=== PATIENT | male | born 1945 | race Caucasian/White ===

== ENCOUNTER 2017-01-29 16:49 | Inpatient (IN) ==
[2017-01-29] MEDS ORDERED: Naloxone 0.4 MG/ML INJ IVP PRN (21:12)
[2017-01-29] MEDS ORDERED: Acetaminophen 325 MG TABLET PO PRN (21:12)
[2017-01-29] MEDS ORDERED: Ondansetron 4 MG/2 ML VIAL IVP PRN (21:12)
[2017-01-29] MEDS ORDERED: D5% in Water 1,000 ML IVC PRN (21:19)
[2017-01-29] MEDS ORDERED: Dextrose Gel 15 GM PO PRN ×2 (21:19)
--- NOTE | 2017-01-29 21:45 | Internal Med History&Physical ---
Date of Encounter: 01/29/17 Time of Encounter: 20:00 Assessment and Plan (1) Acute respiratory failure with hypoxemia Current visit: Yes Status: Acute 1. After initial assessment and then repeat assessment, I placed patient on Bipap and will place on mechanical ventilation if necessary. 2. Emergent dialysis requested from Dr. Ortiz. I called him and he is ordering acute dialysis. 3. Will try diuresis with Lasix in the meantime. 4. Close monitoring. (2) CHF (congestive heart failure) Current visit: Yes Status: Acute 1. Urgent dialysis requested per Nephrology. 2. IV Lasix, IV Morphine, and nitropaste ordered. 3. If necessary, will intubate if patient does not tolerate/improve with BiPap. Qualifiers: Congestive heart failure type: unspecified congestive heart failure type Congestive heart failure chronicity: acute Qualified Code(s): I50.9 - Heart failure, unspecified (3) ESRD (end stage renal disease) Current visit: Yes Status: Chronic 1. Dr. Ortiz consulted for urgent dialysis and ongoing renal needs. (4) NSTEMI (non-ST elevated myocardial infarction) Current visit: Yes Status: Acute 1. Patient denies chest pain. 2. EKG suggest subtle lateral wall ischemia. 3. Heparin gtt started per ACS protocol. 4. Consult cardiology. 5. ASA, BB, STATIN. (5) IDDM (insulin dependent diabetes mellitus) Current visit: Yes Status: Chronic 1. Continue Home Lantus and add SSI. 2. Monitor glucose and adjust as necessary. (6) DVT prophylaxis Current visit: Yes Status: Acute 1. Heparin gtt initiated per ACS protocol. Internal Medicine - H&P: HPI Chief complaint: SOB Admitted From: Hospital to Hospital Transfer Plans for Post Hospital Care: Home History of present illness: Mr. Gallo is a 71 year old male who presents in transfer from [facility] ER for concerns of congestive heart failure. He developed some shortness of breath, which has progressively worsened throughout the last 1-2 days. He is about 5 pounds above his dry weight he states. He denies any chest pain. He has had some clear sputum production with worsening cough. He denies any fevers or chills. He denies any vomiting or diarrhea. At [place] , he received some Nitropaste and Lasix with noted improvement. He feels better now and is not in respiratory distress, but he is still a little short of breath. He has not missed dialysis he states. He stays pretty compliant with his diet and fluid balance. His diabetes has been a little difficult to control lately. He otherwise has felt well until the last 2 days when he started getting more short of breath. At 21:46, I was called STAT to his bedside for acute respiratory distress, frothing, and worsening pulmonary edema. I assessed him, requested he be placed on BiPap, and contacted Dr. Ortiz for urgent dialysis. If necessary , we will intubate and place on mechanical ventilation. However, I'm hopeful urgent dialysis will alleviate and improve his situation. Past Med Surg Social Fam HX - Past Medical History Attestation: Yes The following information was validated with the patient. Source: patient, old records reviewed, obtained from family Medical history: coronary artery disease, diabetes, dialysis, hypertension, myocardial infarction Psychiatric history: no psych history - Past Surgical History Surgical History: other (LHC, AV fistula) - Social History Smoking Status: Current every day smoker Smokeless Tobacco Status: No Alcohol use: none Drug use: none Current living situation: Home, With Family Activity Level: Independent ambulation - Family History Mother Living Status: Hx Family Cardiac Disorders: Yes Hx Family Respiratory Disorders: No Father Living Status: Hx Family Cardiac Disorders: No Hx Family Respiratory Disorders: No Internal Medicine - H&P: Meds Aspirin [Lo-Dose Aspirin EC] 81 mg PO DAILY 01/29/17 [History] Cinacalcet HCl [Sensipar] 60 mg PO DAILY 01/29/17 [History] Fenofibrate Nanocrystallized [Tricor] 145 mg PO DAILY 01/29/17 [History] Insulin Glargine,Hum.rec.anlog [Lantus Solostar] 15 unit SQ HS 01/29/17 [History ] Insulin Human Regular [HumuLIN R] 0 unit SQ TID PRN 01/29/17 [History] Renal Vitamin [Renal Caps Softgel] 1 mg PO DAILY 01/29/17 [History] Sevelamer [Renvela] 2,400 mg PO TIDWM 01/29/17 [History] Simvastatin [Zocor] 10 mg PO DAILY 01/29/17 [History] amLODIPine [Norvasc] 5 mg PO BID 01/29/17 [History] hydrALAZINE [HydrALAZINE] 25 mg PO BID 01/29/17 [History] 3 Allergy/AdvReac Type Severity Reaction Status Date / Time No Known Allergies Allergy Verified 01/29/17 15:16 - Constitutional Constitutional: weight gain, no chills, no fever(s), no night sweats - EENT Eyes: no blurry vision, no change in vision Ears: no ear pain, no tinnitus Nose, mouth and throat: no nasal congestion, no nasal discharge, no sore throat - Cardiovascular Cardiovascular ROS IM: dyspnea, dyspnea on exertion, edema, no chest pain, no diaphoresis, no palpitations - Respiratory Respiratory: cough, dyspnea, no hemoptysis, no wheezing, no pain on inspiration , no chest congestion, no excessive phlegm production, no change in phlegm color , no pain with cough - Gastrointestinal Gastrointestinal: no abdominal pain, no diarrhea, no hematemesis, no hematochezia, no nausea, no vomiting - Genitourinary Genitourinary ROS male: no dysuria, no flank pain, no hematuria - Musculoskeletal Musculoskeletal ROS IM: no arthralgias, no back pain - Integumentary Integumentary IM: no rash, no jaundice - Neurological Neurological ROS: no dizziness, no focal weakness, no frequent falls - Psychiatric Psychiatric: no anxiety, no depression - Endocrine Endocrine IM: no cold intolerance, no heat intolerance, no polydipsia, no polyuria - Hematologic/Lymphatic Hematologic/Lymphatic: no lymphadenopathy - Allergic/Immunologic Allergic/Immunologic: no GI upset with certain foods - Constitutional Vitals: Temp Pulse Resp BP Pulse Ox 97.6 F 88 18 142/77 93 01/29/17 19:20 01/29/17 19:20 01/29/17 19:20 01/29/17 19:20 01/29/17 19:20 General appearance: Present: cooperative, mild distress, A&O X 3, pleasant, answers questions appropriately Exam: on repeat exam; he was in significant respiratory distress - Head Head exam: Present: atraumatic, normal inspection - Expanded Head Exam Head exam expanded: Absent: abrasion, contusion, general tenderness - Eye Eye exam: Present: EOMI, normal appearance, PERRL. Absent: scleral icterus Pupils: Present: normal accommodation Additional comments: mild periorbital and facial swelling - ENT ENT exam: Present: mucous membranes moist, normal exam - Neck Neck exam general surgery: Present: full ROM, supple, trachea midline. Absent: lymphadenopathy, tenderness - Expanded Neck Exam Neck exam: Absent: carotid bruit - Respiratory Respiratory exam: Present: accessory muscle use, rales (about 1/[address] up his lung burgos), respiratory distress, rhonchi. Absent: chest wall tenderness, wheezes - Cardiovascular Cardiovascular exam: Present: JVD, RRR, +S1, +S2. Absent: diastolic murmur, systolic murmur - GI/Abdominal GI/Abdominal exam: Present: normal bowel sounds, soft. Absent: hepatomegaly, mass, rebound, splenomegaly, tenderness - Extremities Exam Extremities exam: Present: full ROM, warm. Absent: calf tenderness, joint swelling, pedal edema, tenderness - Back Exam Back exam: Present: normal inspection. Absent: CVA tenderness (L), CVA tenderness (R) - Neurological Exam Neurological exam: Present: alert, CN II-XII intact, oriented X3, no focal deficits - Psychiatric Psychiatric exam: Present: normal affect, normal mood - Skin Skin exam: Present: dry, warm. Absent: rash Internal Med - H&P Results - Labs Labs: I reviewed his labs from [place] and include the following: WBC 14.9 Hemoglobin 9.8 Hematocrit 28.6 Platelet count 256 PT 10.9 INR 1.0 PTT 52.1 Sodium 135 Potassium 5.4 Chloride 97 Carbon dioxide 19 BUN 68 Creatinine 8.47 Troponin 0.36, now 1.42 - EKG Data -: EKG Interpreted by Myself EKG shows normal: sinus rhythm - EKG Data Prior EKG available for review: yes When compared to previous EKG: there is no significant change Interpretation IM: suggestive of ischemia EKG comments: 01/29/17 22:35 NSR; LVH; ST-T depression in V5-V6 (similar to before) - Diagnostic Studies Chest x-ray Status: image reviewed by me (CHF)
[2017-01-29] MEDS: Furosemide 40 MG/4 ML VIAL IVP SCH (21:59)
[2017-01-29] MEDS: Nitroglycerin 1 INCH/GM PACKET TP SCH (22:01)
[2017-01-29] MEDS: amLODIPine 5 MG TABLET PO SCH (22:02)
[2017-01-29 22:04] LABS: Hemoglobin A1C 6.4 %
[2017-01-29] MEDS ORDERED: *HR* Heparin 5,000 UNIT/ML VIAL IVP PRN ×2 (22:19)
[2017-01-29] MEDS: *HR* Morphine 2 MG/ML SYRINGE IVP PRN (22:43)
[2017-01-29] MEDS: Insulin DETEMIR 100 UNIT/ML X5UNITS SQ SCH (23:13)
[2017-01-29 23:16] LABS: Hematocrit 26.4 % (37.5-50.1); Hemoglobin 8.6 g/dL (12.9-16.9); Immature Platelets 3.2 % (1.1-6.1); Mean Corpuscular HGB Conc 32.6 g/dL (31.6-35.5); Mean Corpuscular Hemoglobin 31.5 pg (28.0-33.3); Mean Corpuscular Volume 96.7 fL (83.0-100.0); Mean Platelet Volume 10.8 fL (9.4-12.4); Red Blood Count 2.73 M/mcL (4.19-5.50); Red Cell Distribution Width 15.3 % (11.5-14.5)
[2017-01-29 23:24] LABS: Activated Partial Thrombo Time 43.4 Seconds (26.0-36.0)
[2017-01-29] MEDS ORDERED: 0.9 % Sodium Chloride 250 ML IVC PRN (23:28)
[2017-01-29] MEDS ORDERED: 0.9 % Sodium Chloride 1,000 ML PRIME SCH (23:30)
[2017-01-29] MEDS: Heparin 25,000 UNIT/500 ML D5W 25,000 UNIT/500 ML MLS IVC SCH (23:44)
[2017-01-30] MEDS ORDERED: *HR* Heparin 5,000 UNIT/ML VIAL SQ SCH
[2017-01-30 00:38] LABS: Basophils # 0.1 K/mcL (0.0-0.2); Basophils % 0.5 %; Eosinophils # 0.1 K/mcL (0.0-0.6); Eosinophils % 0.5 %; Hematocrit 26.5 % (37.5-50.1); Hemoglobin 8.8 g/dL (12.9-16.9); Immature Granulocytes % 0.6 % (0-4); Lymphocytes # 0.7 K/mcL (0.6-4.6); Lymphocytes % 5.9 %; Mean Corpuscular HGB Conc 33.2 g/dL (31.6-35.5); Mean Corpuscular Hemoglobin 31.5 pg (28.0-33.3); Mean Platelet Volume 10.1 fL (9.4-12.4); Monocytes # 0.8 K/mcL (0.0-1.3); Monocytes % 6.8 %; Neutrophils # 10.5 K/mcL (1.6-8.9); Platelet Count 187 K/mcL (140-400); Red Blood Count 2.79 M/mcL (4.19-5.50); Red Cell Distribution Width 15.1 % (11.5-14.5); Segmented Neutrophils % 85.7 %
[2017-01-30 00:52] LABS: Albumin 3.1 g/dL (3.5-5.0); Albumin/Globulin Ratio 0.8 (1.1-2.2); Bilirubin,Total 0.6 mg/dL (0.2-1.2); Calcium 9.2 mg/dL (8.6-10.8); Chol/HDL Ratio 2.2 (0-4.9); Globulin 3.8 g/dL (2.4-3.5); Magnesium 2.7 mg/dL (1.6-2.6); Potassium 5.1 mEq/L (3.5-4.5); Total Protein 6.9 g/dL (6.0-8.3)
[2017-01-30 01:43] LABS: Hepatitis B Surface Antigen Nonreactive (Nonreactive)
[2017-01-30] MEDS ORDERED: 0.9 % Sodium Chloride 250 ML ONE (03:00)
[2017-01-30] MEDS: Nitroglycerin 1 INCH/GM PACKET TP SCH (05:52)
[2017-01-30] MEDS ORDERED: *HR* Dextrose 50 % in Water (Syg) 50 ML SYRINGE ONE (06:03)
[2017-01-30] MEDS ORDERED: D10% in Water 500 ML IVC ONE (06:08)
[2017-01-30] MEDS: *HR* Dextrose 50 % in Water (Syg) 50 ML SYRINGE IVP PRN ×2 (06:14→06:15)
[2017-01-30 07:40] LABS: ABG Base Excess -1.6 mEq/L (-2.0 to 3.0); ABG HCO3 23 mEq/L (21-27); ABG Oxygen Saturation 99 % (95-98); ABG PCO2 36 mmHg (35-45); ABG PH 7.41 pH Units (7.32-7.45); ABG PO2 158 mmHg (85-104); ABG TCO2 23.9 mEq/L (20-26)
[2017-01-30 07:41] LABS: Blood Gas FiO2 40 %
[2017-01-30] MEDS: Insulin LISPRO 300 UNITS/3 ML VIAL SQ SCH ×4 (08:32→23:25)
--- NOTE | 2017-01-30 08:42 | Nephrology Consult Note ---
Date of Encounter: 01/30/17 Time of Encounter: 08:15 Assessment and Plan (1) ESRD (end stage renal disease) Current Visit: Yes Status: Chronic CHF/Pulmonary edema. S/P ultrafiltration last night for fluid removal. Will do HD today, keeping [facility] schedule. Orders given. Elevated troponin. History of Present Illness - Reason for Consult end stage renal disease - History of Present Illness Mr. Bates is a 71 year old male with ESRD who dialyzes at [facility]. Last dialysis on Monday. Compliant with HD, medications and fluids. Other PMH- coronary artery disease, diabetes, dialysis, hypertension, myocardial infarction. Mr. Gallo is currently on Bipap, most of HPI from prior notes. Mr. Gallo was transferred from [facility] with concerns for CHF. He had increasing shortness of breath for last 1-2 days. Stated 5# above dry weight. He denied chest pain, fever, chills. Admitted clear sputum production with worsening cough. He denied vomiting or diarrhea. He had nitropaste placed on received Lasix. with some improvement. Initial troponin 1.42, today bumped to 4.25. Late last PM episode of acute respiratory distress; pulmonary edema and was placed on Bipap, folloed by urgent ultrafiltration for fluid removal. This morning alert, oriented times 3. Bipap. Does not appear having any respiratory distress. States breathing much easier and is hungry and wants to eat. Past Med Surg Social Fam HX - Past Medical History Medical history: coronary artery disease, diabetes, dialysis, hypertension, myocardial infarction Psychiatric history: no psych history - Past Surgical History Surgical History: other (LHC, AV fistula) - Social History Smoking Status: Current every day smoker Smokeless Tobacco Status: No Alcohol use: none Drug use: none - Family History Mother Living Status: Hx Family Cardiac Disorders: Yes Hx Family Respiratory Disorders: No Father Living Status: Hx Family Cardiac Disorders: No Hx Family Respiratory Disorders: No Medications and Allergies Aspirin [Lo-Dose Aspirin EC] 81 mg PO DAILY 01/29/17 [History] Cinacalcet HCl [Sensipar] 60 mg PO DAILY 01/29/17 [History] Fenofibrate Nanocrystallized [Tricor] 145 mg PO DAILY 01/29/17 [History] Insulin Glargine,Hum.rec.anlog [Lantus Solostar] 15 unit SQ HS 01/29/17 [History ] Insulin Human Regular [HumuLIN R] 0 unit SQ TID PRN 01/29/17 [History] Renal Vitamin [Renal Caps Softgel] 1 mg PO DAILY 01/29/17 [History] Sevelamer [Renvela] 2,400 mg PO TIDWM 01/29/17 [History] Simvastatin [Zocor] 10 mg PO DAILY 01/29/17 [History] amLODIPine [Norvasc] 5 mg PO BID 01/29/17 [History] hydrALAZINE [HydrALAZINE] 25 mg PO BID 01/29/17 [History] 3 Allergy/AdvReac Type Severity Reaction Status Date / Time No Known Allergies Allergy Verified 01/29/17 15:16 Review of Systems All Systems: reviewed and no additional remarkable complaints except as stated Exam - Vital Signs Vital signs: Initial Vital Signs Temp Pulse Resp BP Pulse Ox 97.6 F 88 18 142/77 93 01/29/17 19:20 01/29/17 19:20 01/29/17 19:20 01/29/17 19:20 01/29/17 19:20 Vital Signs - Last 8 Hours Temp Pulse Resp BP Pulse Ox 01/30/17 08:21 96.8 F L 80 19 164/76 100 01/30/17 06:28 97.4 F L 96 13 185/80 01/30/17 03:57 98.5 F 81 15 138/69 01/30/17 03:34 98.3 F 81 14 156/76 98 01/30/17 02:33 97.6 F 83 13 175/75 99 01/30/17 02:27 18 100 01/30/17 02:05 97.8 F 11 158/83 01/30/17 01:55 130/77 01/30/17 01:40 137/77 01/30/17 01:25 150/76 01/30/17 01:10 155/83 01/30/17 00:55 162/85 01/30/17 00:40 174/84 Intake and Output 01/29/17 01/30/17 01/30/17 23:59 07:59 15:59 Intake Total 996.5 / 996.5 Output Total 4032 / 4032 Balance -3035.5 / -3035.5 Intake: IV Fluids 96.5 / 96.5 Heparin 25,000 UNIT/500 96.5 / 96.5 ML D5W 25,000 unit In 500 ml @ 12 UNIT/KG/HR 14.16 mls/hr IVC .[facility] Rx# :[id number] Oral 0 / 0 Blood Product 300 / 300 Rbcs Leuko Poor As-1 300 / 300 Unit [id number] Intake, Rinseback and 600 / 600 Flushes Output: Urine 0 / 0 Total Dialysis (HD) 4032 / 4032 Output Other: Weight 59 kg Blood Glucose* 230 179 114 Hemodialysis Net Fluid 3432 Removed (mL) - General Appearance General appearance: well-developed, well-nourished, appears started age EENT: mucous membranes moist Neck: no JVD Respiratory: clear Cardiology: no edema, regular rate, regular rhythm Gastrointestinal: normoactive bowel sounds, no tenderness Integumentary: warm and dry Neurologic: alert and oriented x3 Psychiatric: mood/affect appropriate, cooperative Results - Lab Results 01/30/17 00:30 01/30/17 00:30 Most recent lab results ABG pH 7.41 pH Units (7.32-7.45) 01/30/17 07:17 ABG pCO2 36 mmHg (35-45) 01/30/17 07:17 ABG pO2 158 mmHg (85-104) H 01/30/17 07:17 ABG HCO3 23 mEq/L (21-27) 01/30/17 07:17 ABG O2 Saturation 99 % (95-98) H 01/30/17 07:17 Calcium 9.2 mg/dL (8.6-10.8) 01/30/17 00:30 Magnesium 2.7 mg/dL (1.6-2.6) H 01/30/17 00:30 Consult Discharge Plan - Plan [facility]errals: [facility] [Primary Care Provider[facility] -
[2017-01-30] MEDS: Renal Vitamin 1 MG CAPSULE PO SCH (08:44)
[2017-01-30] MEDS: Aspirin Enteric Coated 81 MG Tablet PO SCH (08:45)
[2017-01-30] MEDS: amLODIPine 5 MG TABLET PO SCH ×2 (08:45→20:47)
[2017-01-30] MEDS: hydrALAZINE 25 MG TABLET PO SCH ×2 (08:45→20:47)
[2017-01-30] MEDS: Furosemide 40 MG/4 ML VIAL IVP SCH ×3 (08:45→19:48)
[2017-01-30] MEDS: Fenofibrate 54 MG TABLET PO SCH (08:45)
[2017-01-30] MEDS: D10% in Water 500 ML IVC SCH ×3 (08:46→23:32)
[2017-01-30] MEDS ORDERED: Famotidine 20 MG TABLET PO SCH (09:00)
[2017-01-30] MEDS ORDERED: 0.9 % Sodium Chloride 250 ML IVC PRN (09:32)
--- NOTE | 2017-01-30 09:43 | Internal Med Progress Note ---
<HilariobenitaMainor copeland - Last Filed: 01/30/17 13:29> Date of Encounter: 01/30/17 Time of Encounter: 08:15 - Assessment and plan (1) Acute respiratory failure with hypoxemia Current Visit: Yes Status: Acute Assessment and plan: - Currently tolerating BiPAP without complaints, speaking in full sentences - Likely secondary to congestive heart failure exacerbation with fluid overload versus possible pneumonia - ABG this morning showed a pH of 7.41, PCO2 of 36, PO2 of 158, HCO3 of 23 - We will attempt to wean off BiPAP this afternoon after dialysis session - Cardiology has been consulted for worsening heart failure, nephrology has been consulted for fluid overload (2) Pulmonary edema Current Visit: Yes Status: Acute Assessment and plan: - Chest x-ray and arrange for return showed increased interstitial markings concerning for initiation edema, right infrahilar opacity - Received ultrafiltration last evening at 0200, scheduled for normal Inga's this afternoon (MWF) - Clinically improving with fluid removal - We will attempt to wean off BiPAP this afternoon - Continue Lasix 80 mg IV twice a day, strict I/O's Qualifiers: Chronicity: acute Qualified Code(s): J81.0 - Acute pulmonary edema (3) CHF (congestive heart failure) Current Visit: Yes Status: Acute Assessment and plan: - Echocardiogram this morning showed a ejection fraction of 40-45%, mild diastolic dysfunction, no significant valvular dysfunction - Continue diuresis with Lasix, dialysis as above Qualifiers: Congestive heart failure type: unspecified congestive heart failure type Congestive heart failure chronicity: acute Qualified Code(s): I50.9 - Heart failure, unspecified (4) NSTEMI (non-ST elevated myocardial infarction) Current Visit: Yes Status: Acute Assessment and plan: - Likely etiologies include demand ischemia, chronic renal failure - Troponin of 1.42 on admission, most recently 4.25. No EKG changes - Cardiology has been consulted, appreciate recommendations - Recommend optimization of respiratory status. Recommend LHC prior to discharge. Continue heparin gtt, asa, and betablocker. Will change zocor to atorvastatin. NPO for possible LHC in AM if okay by Nephrology. Consult cardiac rehab. Further recommendations to follow. (5) ESRD (end stage renal disease) Current Visit: Yes Status: Chronic Assessment and plan: MWF dialysis BUN/creatinine of 77/8.64 Nephrology consulted, appreciate recommendations Received ultrafiltration this morning, hemodialysis schedule for this afternoon (6) IDDM (insulin dependent diabetes mellitus) Current Visit: Yes Status: Chronic Assessment and plan: A1c of 6.4 Sliding scale insulin (7) DVT prophylaxis Current Visit: Yes Status: Acute Assessment and plan: Receiving heparin drip for NSTEMI - Time Spent With Patient 25 - 35 minutes - Subjective Interval history: Mr. Gallo was seen and examined at bedside this morning. He states he is doing a lot better since admission. He is currently tolerating BiPAP with no complaints of shortness of breath. He also denies any symptoms of chest pain, fevers, chills, abdominal pain. He states his dialysis session early this morning improved his breathing significantly. - Constitutional Vitals: Temp Pulse Resp BP Pulse Ox 96.8 F L 80 19 164/76 100 01/30/17 08:21 01/30/17 08:21 01/30/17 08:21 01/30/17 08:21 01/30/17 08:21 General appearance: Present: cooperative, mild distress, A&O X 3, pleasant, answers questions appropriately Exam: Gen.: Vitals noted. No acute distress. AAOx3. Currently tolerating BiPAP, speaking in full sentences. HEENT: PERRL/EOMI, oropharynx clear, Normocephalic, atraumatic Neck: Supple. No adenopathy. Cardiac: RRR, +S1/S2, systolic murmur Pulmonary: Forced air from BiPAP machine during time of auscultation. Decreased breath sounds right. equal chest expansion Abdomen: soft, nontender, BS noted, no guarding Back: Nontender throughout. MSK: ROM intact, no joint swelling noted Extremities: no BLE edema, nontender calf, no cyanosis or clubbing Neuro: A&Ox3, moves all extremities, no focal deficits Psych: Appropriate mood and behavior Internal Medicine: Result - Labs CBC & Chem 7: 01/30/17 00:30 01/30/17 00:30 Labs: Short CBC 01/29/17 01/30/17 Range/Units 23:07 00:30 WBC 12.3 H 12.3 H (4.3-11.1) K/mcL Hgb 8.6 L 8.8 L (12.9-16.9) g/dL Hct 26.4 L 26.5 L (37.5-50.1) % Plt Count 216 187 (140-400) K/mcL Neutrophils # 10.5 H (1.6-8.9) K/mcL BMP 01/30/17 00:30 Sodium 135 L Potassium 5.1 H Chloride 100 Carbon Dioxide 19 BUN 77 H Creatinine 8.64 H Glucose 194 H Calcium 9.2 Cardiac Enzymes 01/29/17 01/30/17 Range/Units 21:31 06:40 Troponin I 1.42 H* 4.25 H* (0-0.03) ng/mL Liver Function 01/30/17 Range/Units 00:30 Total Bilirubin 0.6 (0.2-1.2) mg/dL AST 27 (5-34) Units/L ALT 16 (0-55) Units/L Alkaline Phosphatase 158 H (38-126) Units/L Albumin 3.1 L (3.5-5.0) g/dL - ABG Interpretation ABG results: ABG ABG pH 7.41 pH Units (7.32-7.45) 01/30/17 07:17 ABG pCO2 36 mmHg (35-45) 01/30/17 07:17 ABG pO2 158 mmHg (85-104) H 01/30/17 07:17 ABG O2 Saturation 99 % (95-98) H 01/30/17 07:17 PT/INR, D-dimer PT 11.0 Seconds (9.4-12.1) 01/29/17 23:07 - Impressions Impressions Echocardiogram 01/30/17 21:12 Impressions: LVEF 40-45%. Normal LV chamber size and wall thickness. Segmental left ventricular systolic dysfunction. Mild left ventricular diastolic dysfunction. Moderately dilated left atrium. Normal right ventricular structure and function. Unable to estimate RVSP due to lack of TR jet. No significant valvular dysfunction identified. Left Ventricular Wall Motion: Rest Echo Findings The mid inferior, basal inferior, mid inferior septal and basal inferior septal ross were hypokinetic. All other wall segments showed normal motion. Findings: Study Quality * Technically adequate exam. ECG Findings * Normal sinus rhythm. Left Ventricle * LVEF 40-45%. * Normal LV chamber size and wall thickness. * Segmental left ventricular systolic dysfunction. * Mild left ventricular diastolic dysfunction. Right Ventricle * Normal right ventricular structure and function. Left Atrium * Moderately dilated left atrium. Right Atrium * Mildly dilated right atrium. Interatrial Septum * No evidence of PFO by color Doppler. Aortic Valve * Trileaflet aortic valve with normal function. * No aortic regurgitation. * No aortic stenosis. Mitral Valve * Normal mitral valve structure and function. * No mitral stenosis. * Trace mitral regurgitation. Tricuspid Valve * Normal tricuspid valve structure and function. * No tricuspid regurgitation. * Unable to estimate RVSP due to lack of TR jet. Pulmonic Valve * Normal pulmonic valve structure and function. * No pulmonic regurgitation. Aorta * Normally sized aortic root. Pericardium * There is a trivial pericardial effusion present. IVC * Normal IVC dimensions and inspiratory collapse. Pulmonary Artery * Normal visualized portions of the main pulmonary artery. Consult Discharge Plan - Plan [facility]errals: [facility] [Primary Care Provider] - <Ángel Lu P - Last Filed: 01/30/17 18:32> Date of Encounter: 01/30/17 - Constitutional Vitals: Temp Pulse Resp BP Pulse Ox 97.2 F L 66 18 138/64 100 01/30/17 17:20 01/30/17 10:37 01/30/17 17:20 01/30/17 17:20 01/30/17 10:37 Internal Medicine: Result - Labs CBC & Chem 7: 01/30/17 00:30 01/30/17 00:30 Labs: Short CBC 01/29/17 01/30/17 Range/Units 23:07 00:30 WBC 12.3 H 12.3 H (4.3-11.1) K/mcL Hgb 8.6 L 8.8 L (12.9-16.9) g/dL Hct 26.4 L 26.5 L (37.5-50.1) % Plt Count 216 187 (140-400) K/mcL Neutrophils # 10.5 H (1.6-8.9) K/mcL BMP 01/30/17 00:30 Sodium 135 L Potassium 5.1 H Chloride 100 Carbon Dioxide 19 BUN 77 H Creatinine 8.64 H Glucose 194 H Calcium 9.2 Cardiac Enzymes 01/29/17 01/30/17 01/30/17 Range/Units 21:31 06:40 13:27 Troponin I 1.42 H* 4.25 H* 3.47 H* (0-0.03) ng/mL Liver Function 01/30/17 Range/Units 00:30 Total Bilirubin 0.6 (0.2-1.2) mg/dL AST 27 (5-34) Units/L ALT 16 (0-55) Units/L Alkaline Phosphatase 158 H (38-126) Units/L Albumin 3.1 L (3.5-5.0) g/dL - ABG Interpretation ABG results: ABG ABG pH 7.41 pH Units (7.32-7.45) 01/30/17 07:17 ABG pCO2 36 mmHg (35-45) 01/30/17 07:17 ABG pO2 158 mmHg (85-104) H 01/30/17 07:17 ABG O2 Saturation 99 % (95-98) H 01/30/17 07:17 PT/INR, D-dimer PT 11.0 Seconds (9.4-12.1) 01/29/17 23:07 - Impressions Impressions Echocardiogram 01/30/17 21:12 Impressions: LVEF 40-45%. Normal LV chamber size and wall thickness. Segmental left ventricular systolic dysfunction. Mild left ventricular diastolic dysfunction. Moderately dilated left atrium. Normal right ventricular structure and function. Unable to estimate RVSP due to lack of TR jet. No significant valvular dysfunction identified. Left Ventricular Wall Motion: Rest Echo Findings The mid inferior, basal inferior, mid inferior septal and basal inferior septal ross were hypokinetic. All other wall segments showed normal motion. Findings: Study Quality * Technically adequate exam. ECG Findings * Normal sinus rhythm. Left Ventricle * LVEF 40-45%. * Normal LV chamber size and wall thickness. * Segmental left ventricular systolic dysfunction. * Mild left ventricular diastolic dysfunction. Right Ventricle * Normal right ventricular structure and function. Left Atrium * Moderately dilated left atrium. Right Atrium * Mildly dilated right atrium. Interatrial Septum * No evidence of PFO by color Doppler. Aortic Valve * Trileaflet aortic valve with normal function. * No aortic regurgitation. * No aortic stenosis. Mitral Valve * Normal mitral valve structure and function. * No mitral stenosis. * Trace mitral regurgitation. Tricuspid Valve * Normal tricuspid valve structure and function. * No tricuspid regurgitation. * Unable to estimate RVSP due to lack of TR jet. Pulmonic Valve * Normal pulmonic valve structure and function. * No pulmonic regurgitation. Aorta * Normally sized aortic root. Pericardium * There is a trivial pericardial effusion present. IVC * Normal IVC dimensions and inspiratory collapse. Pulmonary Artery * Normal visualized portions of the main pulmonary artery. - Attending Attestation I examined this patient and my medical decision-making was reviewed with the Resident Physician. I agree with the documented findings, disposition and treatment plan as described except to the extent set forth below.
--- NOTE | 2017-01-30 09:53 | Cardiology Consult Note ---
<Dea Veliz Christopher - Last Filed: 01/30/17 10:02> Date of Encounter: 01/30/17 Time of Encounter: 09:00 Assessment and Plan (1) NSTEMI (non-ST elevated myocardial infarction) Current Visit: Yes Status: Acute History difficulty to obtain, patient on Bipap. Troponin 0.36, 1.42, 4.25 in the setting of acute respiratory failure, accelerated HTN, and ESRD. Patient denies chest; however ACS cannot be ruled out. Ischemic ECG changes noted. Patient required emergent HD overnight and will have HD again today, remains on Bipap. Recommend optimization of respiratory status. Reports LHC 17 years ago, denies hx of CAD, follows at [place]. Recommend LHC prior to discharge. Continue heparin gtt, asa, and betablocker. Will change zocor to atorvastatin. Pain is pain free, will stop NTG paste. Echo pending. Keep NPO for possible LHC in AM if okay by Nephrology--appreciate recommendations. Consult cardiac rehab. Further recommendations to follow. (2) Acute respiratory failure with hypoxemia Current Visit: Yes Status: Acute p02=30% upon arrival to [facility]. Remains on Bipap this AM upon exam. Will defer further mgmt to Primary service. (3) Hypertensive emergency Current Visit: Yes Status: Acute Initial BP 242/112 upon presentation at [facility]. Remains elevated, recommend conservation titration of antihypertensives. (4) ESRD (end stage renal disease) Current Visit: Yes Status: Chronic ESRD on HD, MWF. Emergent HD overnight, plan for HD today. Nephrology following. Discussion w patient/family: The assessment and plan as outlined above was discussed with the patient and/or family members who expressed understanding and agreement. All questions were answered. Thank you for involving us in the care of your patient. Please call with any questions. The patient will be discussed and reviewed with Dr. Rodas; changes to be made accordingly. History of Present Illness Consult date: 01/30/17 Requesting physician: Alex Beasley Consult reason: NSTEMI Chief complaint: Shortness of breath History of present illness: Mr. Gallo is a 71 year old male with PMHx significant for ESRD on HD, HTN, DMII, and tobacco abuse who presented to [facility] with 1-2 day history of worsening shortness of breath; upon arrival to ED p02 was 30% per ABG. He reports nearly 5 lbs weight gain from his usual weight. BP was severely elevated at 242/112. He denies missing HD, change in diet, or missing medications. Reports compliance with diet and fluid restriction. Denies edema, syncope, palpitations, or dizziness. Initial troponin 0.36, now 4.25. He denies hx of CAD, reports possible LHC around 17 years ago. Prior CV testing: TTE 05/01/14: LVEF 60%, moderate LVDD, mild MR, mild-moderate PH, basal inferior wall hypokinesis. Past Med Surg Social Fam HX - Past Medical History Attestation: Yes The following information was validated with the patient. Source: patient, old records reviewed Medical history: diabetes, dialysis, hypertension, renal disease Psychiatric history: no psych history - Past Surgical History Surgical History: other (LHC, AV fistula) - Social History Smoking Status: Current every day smoker Smokeless Tobacco Status: No Alcohol use: none Drug use: none - Family History Mother Living Status: Hx Family Cardiac Disorders: Yes Hx Family Respiratory Disorders: No Father Living Status: Hx Family Cardiac Disorders: No Hx Family Respiratory Disorders: No Medications and Allergies Aspirin [Lo-Dose Aspirin EC] 81 mg PO DAILY 01/29/17 [History] Cinacalcet HCl [Sensipar] 60 mg PO DAILY 01/29/17 [History] Fenofibrate Nanocrystallized [Tricor] 145 mg PO DAILY 01/29/17 [History] Insulin Glargine,Hum.rec.anlog [Lantus Solostar] 15 unit SQ HS 01/29/17 [History ] Insulin Human Regular [HumuLIN R] 0 unit SQ TID PRN 01/29/17 [History] Renal Vitamin [Renal Caps Softgel] 1 mg PO DAILY 01/29/17 [History] Sevelamer [Renvela] 2,400 mg PO TIDWM 01/29/17 [History] Simvastatin [Zocor] 10 mg PO DAILY 01/29/17 [History] amLODIPine [Norvasc] 5 mg PO BID 01/29/17 [History] hydrALAZINE [HydrALAZINE] 25 mg PO BID 01/29/17 [History] Dextrose Gel [Gluctose] 15 gm PO ONCE PRN 01/30/17 [History] Glucagon,Human Recombinant [Glucagon Emergency Kit] 1 mg IJ AD PRN 01/30/17 [ History] Losartan Potassium [Cozaar] 50 mg PO BID 01/30/17 [History] 3 Allergy/AdvReac Type Severity Reaction Status Date / Time No Known Allergies Allergy Verified 01/29/17 15:16 All Systems Review: A 10-system review of systems was performed and is negative for pertinent findings except as documented above in the HPI. Physical Examination Vital Signs, Last 4 Hours Temp Pulse Resp BP Pulse Ox 01/30/17 08:21 96.8 F L 80 19 164/76 100 01/30/17 06:28 97.4 F L 96 13 185/80 General: Conversant, Other (on Bipap) HEENT: Atraumatic, Normocephaly, Mucus Membranes Moist Neck: No JVD Cardiac: Reg Rate and Rhythm, Normal S1 and S2 Neuro: Alert and responsive Abdomen: Soft Skin: No rashes noted on visualized skin Musculoskeletal: No Chest Wall Tenderness Extremities: No Edema, Normal Pulses Other: left arm AV fistula Results 01/30/17 00:30 01/30/17 00:30 Lab Results 01/29/17 01/29/17 01/29/17 21:31 23:07 23:07 WBC 12.3 H Hgb 8.6 L Hct 26.4 L Plt Count 216 INR 1.0 APTT 43.4 H Sodium Potassium Chloride Carbon Dioxide BUN Creatinine Glucose Calcium Magnesium Total Bilirubin AST ALT Alkaline Phosphatase Troponin I 1.42 H* 01/30/17 01/30/17 01/30/17 00:30 00:30 06:40 WBC 12.3 H Hgb 8.8 L Hct 26.5 L Plt Count 187 INR APTT Sodium 135 L Potassium 5.1 H Chloride 100 Carbon Dioxide 19 BUN 77 H Creatinine 8.64 H Glucose 194 H Calcium 9.2 Magnesium 2.7 H Total Bilirubin 0.6 AST 27 ALT 16 Alkaline Phosphatase 158 H Troponin I 4.25 H* 01/30/17 06:40 WBC Hgb Hct Plt Count INR APTT 49.4 H Sodium Potassium Chloride Carbon Dioxide BUN Creatinine Glucose Calcium Magnesium Total Bilirubin AST ALT Alkaline Phosphatase Troponin I Active Medications Acetaminophen (Tylenol) 650 mg PO Q6HR PRN PRN Reason: Mild Pain (1-3) Stop: 07/31/17 21:13 Amlodipine Besylate (Norvasc) 5 mg PO BID ROSAMARIA PRN Reason: Protocol Stop: 07/31/17 21:31 Last Admin: 01/30/17 08:45 Dose: 5 mg Aspirin (Aspirin Ec) 81 mg PO DAILY ROSAMARIA Stop: 08/01/17 09:01 Last Admin: 01/30/17 08:45 Dose: 81 mg Cinacalcet (Sensipar) 60 mg PO DAILY ROSAMARIA Stop: 08/01/17 09:01 Last Admin: 01/30/17 08:44 Dose: 60 mg Dextrose/Water (Dextrose 50% (Syg)) 25 ml IVP AD PRN PRN Reason: Hypoglycemia Stop: 07/31/17 21:20 Last Admin: 01/30/17 06:15 Dose: 25 ml Famotidine (Pepcid) 20 mg PO DAILY ROSAMARIA Stop: 08/01/17 09:01 Fenofibrate (Tricor) 162 mg PO DAILY ROSAMARIA Stop: 08/01/17 09:01 Last Admin: 01/30/17 08:45 Dose: 162 mg Furosemide (Lasix) 80 mg IVP BIDDIURETIC ROSAMARIA Stop: 08/01/17 08:48 Heparin Sodium (Porcine) (Heparin) 3,500 unit 60 unit/kg (3500 unit) IVP Q6HR PRN PRN Reason: SEE COMMENTS Stop: 07/31/17 22:20 Heparin Sodium (Porcine) (Heparin) 1,800 unit 30 unit/kg (1800 unit) IVP Q6H PRN PRN Reason: SEE COMMENTS Stop: 07/31/17 22:20 Last Admin: 01/30/17 07:35 Dose: 1,800 unit Hydralazine HCl (Hydralazine) 25 mg PO BID ROSAMARIA Stop: 08/01/17 09:01 Last Admin: 01/30/17 08:45 Dose: 25 mg Dextrose (Dextrose 5%) 1,000 mls @ 100 mls/hr IVC .Q10H PRN PRN Reason: HYPOGLYCEMIA Stop: 07/31/17 21:20 Heparin Sodium/Dextrose (Heparin 25,000 Unit/500 Ml D5w) 25,000 unit in 500 mls @ 14.16 mls/hr IVC .Q24H ROSAMARIA; 12 UNIT/KG/HR PRN Reason: Protocol Stop: 07/31/17 22:31 Last Titration: 01/30/17 07:30 Dose: 14 unit/kg/hr, 16.52 mls/hr Sodium Chloride (0.9 % Sodium Chloride) 250 mls @ 937.5 mls/hr IVC .Q16M PRN PRN Reason: Hypotension Stop: 07/31/17 23:29 Sodium Chloride (0.9 % Sodium Chloride) 1,000 mls @ 0 mls/hr PRIME .Q0M ROSAMARIA PRN Reason: As Directed Stop: 07/31/17 23:31 Dextrose (Dextrose 10% Water 500 Ml Ivbag) 500 mls @ 75 mls/hr IVC .Q6H40M [facility] Stop: 08/01/17 06:16 Last Admin: 01/30/17 08:46 Dose: 75 mls/hr Sodium Chloride (0.9 % Sodium Chloride) 250 mls @ 937.5 mls/hr IVC .Q16M PRN PRN Reason: Hypotension Stop: 08/01/17 09:33 Insulin Detemir (Levemir) 15 unit SQ HS [facility] Stop: 07/31/17 21:46 Last Admin: 01/29/17 23:13 Dose: 15 unit Insulin Human Lispro (Humalog) 0 units SQ TIDAC [facility] PRN Reason: Protocol Stop: 08/01/17 07:31 Last Admin: 01/30/17 08:32 Dose: Not Given Insulin Human Lispro (Humalog) 0 units SQ [facility] PRN Reason: Protocol Stop: 08/01/17 21:01 Metoprolol Tartrate (Lopressor) 12.5 mg PO BID [facility] Stop: 08/01/17 09:01 Last Admin: 01/30/17 08:42 Dose: 12.5 mg Morphine Sulfate (Morphine Sulfate) 2 mg IVP Q4HR PRN PRN Reason: Chest Pain Stop: 07/31/17 21:13 Last Admin: 01/29/17 22:43 Dose: 2 mg Naloxone HCl (Narcan) 0.4 mg IVP Q2MIN PRN PRN Reason: Opioid Reversal Stop: 07/31/17 21:13 Nitroglycerin (Nitroglycerin) 1 inch TP Q6HNTG [facility] Stop: 07/31/17 21:16 Last Admin: 01/30/17 05:52 Dose: 1 inch Ondansetron HCl (Zofran) 4 mg IVP Q8HR PRN PRN Reason: Nausea And Vomiting Stop: 07/31/17 21:13 Sevelamer HCl (Renvela) 2,400 mg PO TIDWM ROSAMARIA Stop: 08/01/17 08:01 Simvastatin (Zocor) 10 mg PO DAILY ROSAMARIA PRN Reason: Protocol Stop: 08/01/17 09:01 Last Admin: 01/30/17 08:44 Dose: 10 mg Vitamin B Complex/Vit C/Folic Acid (Renal Caps Softgel) 1 mg PO DAILY ROSAMARIA Stop: 08/01/17 09:01 Last Admin: 01/30/17 08:44 Dose: 1 mg - Imaging and Cardiology Echo: report reviewed Other Results: 12 hour tele: avg HR=82 SR. Frequent PVCs. - EKG Interpretation EKG results cardiology: personally reviewed Consult Discharge Plan - Plan [facility]errals: [facility] Care Provider[facility] - <Mikki Rodas - Last Filed: 01/30/17 13:15> Date of Encounter: 01/30/17 Assessment and Plan Discussion w patient/family: The assessment and plan as outlined above was discussed with the patient and/or family members who expressed understanding and agreement. All questions were answered. Thank you for involving us in the care of your patient. Please call with any questions. History of Present Illness History of present illness: Mr. Gallo is a 71 year old male All Systems Review: A 10-system review of systems was performed and is negative for pertinent findings except as documented above in the HPI. Physical Examination Vital Signs, Last 4 Hours Temp Pulse Resp BP Pulse Ox 01/30/17 10:37 97.2 F L 66 19 151/70 100 Results 01/30/17 00:30 01/30/17 00:30 Lab Results 01/29/17 01/29/17 01/29/17 21:31 23:07 23:07 WBC 12.3 H Hgb 8.6 L Hct 26.4 L Plt Count 216 INR 1.0 APTT 43.4 H Sodium Potassium Chloride Carbon Dioxide BUN Creatinine Glucose Calcium Magnesium Total Bilirubin AST ALT Alkaline Phosphatase Troponin I 1.42 H* 01/30/17 01/30/17 01/30/17 00:30 00:30 06:40 WBC 12.3 H Hgb 8.8 L Hct 26.5 L Plt Count 187 INR APTT Sodium 135 L Potassium 5.1 H Chloride 100 Carbon Dioxide 19 BUN 77 H Creatinine 8.64 H Glucose 194 H Calcium 9.2 Magnesium 2.7 H Total Bilirubin 0.6 AST 27 ALT 16 Alkaline Phosphatase 158 H Troponin I 4.25 H* 01/30/17 06:40 WBC Hgb Hct Plt Count INR APTT 49.4 H Sodium Potassium Chloride Carbon Dioxide BUN Creatinine Glucose Calcium Magnesium Total Bilirubin AST ALT Alkaline Phosphatase Troponin I - Attending Attestation I examined this patient and my medical decision-making was reviewed with the Resident Physician. I agree with the documented findings, disposition and treatment plan. Mr. Gallo presents with elevated troponin, now 4.25 in setting of respiratory distress and new systolic CHF with EF 40-45%. Ischemic ECG changes are also present. Patient has required emergent dialysis and plans to have another session this afternoon. We recommend optimization of respiratory status. Will plan to proceed with [facility] tomorrow for NSTEMI. The R/B/A of the procedure were discussed with the patient who expressed understanding and agreement to proceed. He is presently pain free. Continue heparin gtt, asa, statin, BB. Blood count is stable.
[2017-01-30] MEDS: Famotidine 20 MG TABLET PO SCH (10:27)
[2017-01-30] MEDS ORDERED: 0.9 % Sodium Chloride 2,000 ML ONE (13:12)
[2017-01-30] MEDS: Heparin 25,000 UNIT/500 ML D5W 25,000 UNIT/500 ML MLS IVC SCH (23:32)
[2017-01-30] MEDS: Insulin DETEMIR 100 UNIT/ML X5UNITS SQ SCH (23:32)
[2017-01-31 06:17] LABS: Hemoglobin 9.3 g/dL (12.9-16.9); Immature Platelets 5.6 % (1.1-6.1); Mean Corpuscular HGB Conc 33.2 g/dL (31.6-35.5); Mean Corpuscular Hemoglobin 30.5 pg (28.0-33.3); Mean Corpuscular Volume 91.8 fL (83.0-100.0); Mean Platelet Volume 10.7 fL (9.4-12.4); Red Blood Count 3.05 M/mcL (4.19-5.50); Red Cell Distribution Width 17.9 % (11.5-14.5)
[2017-01-31 06:29] LABS: Calcium 8.5 mg/dL (8.6-10.8); Potassium 4.6 mEq/L (3.5-4.5)
[2017-01-31] MEDS: Insulin LISPRO 300 UNITS/3 ML VIAL SQ SCH ×4 (07:33→21:12)
[2017-01-31] MEDS: Heparin 25,000 UNIT/500 ML D5W 25,000 UNIT/500 ML MLS IVC SCH (08:56)
[2017-01-31] MEDS: Renal Vitamin 1 MG CAPSULE PO SCH (09:47)
[2017-01-31] MEDS: Fenofibrate 54 MG TABLET PO SCH (09:50)
[2017-01-31] MEDS: amLODIPine 5 MG TABLET PO SCH (09:50)
[2017-01-31] MEDS: hydrALAZINE 25 MG TABLET PO SCH (09:50)
[2017-01-31] MEDS: Famotidine 20 MG TABLET PO SCH (09:50)
[2017-01-31] MEDS: Aspirin Enteric Coated 81 MG Tablet PO SCH (09:50)
[2017-01-31] MEDS: Furosemide 40 MG/4 ML VIAL IVP SCH ×2 (09:51→16:51)
[2017-01-31] MEDS: D10% in Water 500 ML IVC SCH (09:54)
--- NOTE | 2017-01-31 10:07 | Nephrology Progress Note ---
Date of Encounter: 01/31/17 Time of Encounter: 09:55 - Assessment and Plan (1) ESRD (end stage renal disease) Current Visit: Yes Status: Chronic CHF/Pulmonary edema. Will do HD tomorrow, keeping MWF schedule. Elevated troponin. [facility] scheduled for tday. Subjective Interval history: Resting quietly in bed. Denies chest pain or difficulty breathing. at bedside. No new complaints. Scheduled for [facility] today. Objective - Vital Signs Vital signs: Vital Signs Temp Pulse Resp BP Pulse Ox 01/31/17 07:13 97.8 F 73 15 175/83 96 01/31/17 03:55 98.1 F 71 17 148/75 98 01/30/17 23:09 98.2 F 71 17 160/74 94 01/30/17 20:47 98.5 F 82 17 163/73 99 01/30/17 17:20 97.2 F L 18 138/64 01/30/17 17:00 110/54 01/30/17 16:45 104/59 01/30/17 16:30 135/63 01/30/17 16:15 128/69 01/30/17 16:00 128/54 01/30/17 15:58 98 01/30/17 15:45 106/56 01/30/17 15:30 102/57 01/30/17 15:15 121/64 01/30/17 15:00 128/68 01/30/17 14:45 129/69 01/30/17 14:30 133/74 01/30/17 14:15 155/79 01/30/17 14:00 97.6 F 18 166/79 01/30/17 10:37 97.2 F L 66 19 151/70 100 Intake and Output 01/30/17 01/31/17 01/31/17 23:59 07:59 15:59 Intake Total 183 / 183 277 / 277 Output Total 2600 / 2600 250 / 250 Balance -2417 / -2417 -250 / -250 277 / 277 Intake: IV Fluids 183 / 183 277 / 277 Dextrose 10% Water 500 Ml 183 / 183 Ivbag 500 ML @ 75 mls/hr IVC .Q6H40M [facility] Rx#: [id number] Heparin 25,000 UNIT/500 277 / 277 ML D5W 25,000 unit In 500 ml @ 12 UNIT/KG/HR 14.16 mls/hr IVC .Q24H [facility] Rx# :[id number] Oral 0 / 0 Output: Urine 0 / 0 250 / 250 Total Dialysis (HD) 2600 / 2600 Output Other: Meal NPO Weight 57.9 kg Blood Glucose* 427 131 193 Hemodialysis Net Fluid 2000 Removed (mL) Patient Weight 01/31/17 23:59 Weight 57.9 kg - General Appearance General appearance: Present: well-developed, well-nourished, appears started age EENT: Present: mucous membranes moist Neck: Present: no JVD Respiratory: Present: clear Cardiology: Present: no edema, regular rate, regular rhythm Gastrointestinal: Present: normoactive bowel sounds, no tenderness Integumentary: Present: warm and dry Neurologic: Present: alert and oriented x3 Psychiatric: Present: mood/affect appropriate, cooperative - Lab 01/31/17 05:50 01/31/17 05:50 Most recent lab results ABG pH 7.41 pH Units (7.32-7.45) 01/30/17 07:17 ABG pCO2 36 mmHg (35-45) 01/30/17 07:17 ABG pO2 158 mmHg (85-104) H 01/30/17 07:17 ABG HCO3 23 mEq/L (21-27) 01/30/17 07:17 ABG O2 Saturation 99 % (95-98) H 01/30/17 07:17 Calcium 8.5 mg/dL (8.6-10.8) L 01/31/17 05:50 Magnesium 2.7 mg/dL (1.6-2.6) H 01/30/17 00:30 Consult Discharge Plan - Plan [facility]errals: [facility] [Primary Care Provider] -
--- NOTE | 2017-01-31 10:26 | Event Note ---
Date of Encounter: 01/31/17 Time of Encounter: 09:00 - Cardiology Event Note Plan for LHC today due to NSTEMI (peak troponin 4.25) and newly reduced LVEF, 40 -45% with wall motion abnormalities. H/H remains stable, improved today; has been on heparin gtt since admission. Patient reports episode of chest pain/discomfort this AM (now resolved) that was triggered by stress. Recommend LHC with possible PCI; alternatives, risks, and benefits discussed, he is agreeable to proceed. Discussed with Nephrology, Torrie Boyd, and agrees that okay to proceed with LHC today from Nephrology standpoint. Discussed and reviewed with Dr. Rodsa who agrees with plan as stated above. Further recommendations to follow. ITS Impressions Echocardiogram 01/30/17 21:12 Impressions: LVEF 40-45%. Normal LV chamber size and wall thickness. Segmental left ventricular systolic dysfunction. Mild left ventricular diastolic dysfunction. Moderately dilated left atrium. Normal right ventricular structure and function. Unable to estimate RVSP due to lack of TR jet. No significant valvular dysfunction identified. Left Ventricular Wall Motion: Rest Echo Findings The mid inferior, basal inferior, mid inferior septal and basal inferior septal ross were hypokinetic. All other wall segments showed normal motion.
[2017-01-31] MEDS ORDERED: 0.9 % Sodium Chloride 1,000 ML ONE ×2 (10:40→10:56)
[2017-01-31] MEDS ORDERED: Heparin 1,000 UNITS/500 mL NS 500 ML ONE (10:40)
[2017-01-31] MEDS ORDERED: *HR* Heparin 10,000 UNIT/10 ML VIAL ONE (10:40)
[2017-01-31] MEDS ORDERED: *HR* FentaNYL (PF) 100 MCG/2 ML VIAL ONE (10:43)
[2017-01-31] MEDS ORDERED: *HR* Midazolam HCl 2 MG/2 ML VIAL ONE (10:43)
--- NOTE | 2017-01-31 10:58 | Pre-Sedation Evaluation ---
Pre-sedation evaluation - Pre-sedation checklist Date of procedure: 01/31/17 Procedure: Heart Cath Recent Vitals: Last Vital Signs Temp 97.8 F 01/31/17 07:13 Pulse 73 01/31/17 07:13 Resp 15 01/31/17 07:13 BP 175/83 01/31/17 07:13 Pulse Ox 96 01/31/17 07:13 H&P (including ROS) documented in medical record: Yes Previous reaction to sedatives/anesthetics: No Dietary Status: NPO after Midnight Airway Assessment: Patient can open mouth completely, TMJ function normal, Micrognathia (under-bite, receding chin) absent, Neck with adequate range of motion Dentition: full dentition Possible difficult airway: No ASA Classification *see protocol: CLASS II-Mild systemic disease Plan of Care: Pt appropriate candidate for procedure/moderate/conscious sedation , Risks/benefits of procedure/sedation discussed w/ patient/family
[2017-01-31] MEDS ORDERED: Nitroglycerin 1,000 MCG/10 ML VIAL IV ONE (11:09)
[2017-01-31] MEDS ORDERED: *HR* Bivalirudin 250 MG VIAL IVC ONE (11:26)
[2017-01-31] MEDS ORDERED: *HR* Ticagrelor 90 MG TABLET ONE (11:39)
--- NOTE | 2017-01-31 13:09 | Internal Med Progress Note ---
<TraeMainor copeland - Last Filed: 01/31/17 13:58> Date of Encounter: 01/31/17 Time of Encounter: 13:58 - Assessment and plan (1) Acute respiratory failure with hypoxemia Current Visit: Yes Status: Resolved Assessment and plan: - Much improved, currently tolerating room air speaking in full sentences. - Likely secondary to congestive heart failure exacerbation with fluid overload versus possible pneumonia - ABG yesterday showed a pH of 7.41, PCO2 of 36, PO2 of 158, HCO3 of 26 - Cardiology has been consulted for worsening heart failure, nephrology has been consulted for fluid overload - Further plans as below (2) Pulmonary edema Current Visit: Yes Status: Acute Assessment and plan: - Resolved. - Chest x-ray and arrange for return showed increased interstitial markings concerning for initiation edema, right infrahilar opacity - Received ultrafiltration monday at 0200, scheduled for normal dialysis tomorrow (MWF) - Clinically improving with fluid removal - Continue Lasix 80 mg IV twice a day, strict I/O's. -4 L since admission Qualifiers: Chronicity: acute Qualified Code(s): J81.0 - Acute pulmonary edema (3) CHF (congestive heart failure) Current Visit: Yes Status: Acute Assessment and plan: - Echocardiogram this morning showed a ejection fraction of 40-45%, mild diastolic dysfunction, no significant valvular dysfunction - Continue diuresis with Lasix, dialysis as above - Left heart catheter performed this afternoon as below Qualifiers: Congestive heart failure type: systolic Congestive heart failure chronicity : acute Qualified Code(s): I50.21 - Acute systolic (congestive) heart failure (4) NSTEMI (non-ST elevated myocardial infarction) Current Visit: Yes Status: Acute Assessment and plan: - Likely etiologies include demand ischemia, chronic renal failure - Troponin of 1.42 on admission, most recently 4.25. No EKG changes - Left heart catheterization this afternoon with placement of 1 drug-eluting stent in mid LAD - Cardiology has been consulted, appreciate recommendations - Continue heparin gtt, asa, and betablocker. Will change zocor to atorvastatin. Consult cardiac rehab. (5) ESRD (end stage renal disease) Current Visit: Yes Status: Chronic Assessment and plan: MWF dialysis BUN/creatinine of 59/7.06 Nephrology consulted, appreciate recommendations (6) IDDM (insulin dependent diabetes mellitus) Current Visit: Yes Status: Chronic Assessment and plan: A1c of 6.4 Discontinued D10 yesterday. Sliding scale insulin Home basal insulin (7) DVT prophylaxis Current Visit: Yes Status: Acute Assessment and plan: Will add SCDs in place of heparin due to recent C - Time Spent With Patient 25 - 35 minutes - Subjective Interval history: Mr. Gallo was seen and examined at bedside this afternoon following his left heart catheterization. He states that he tolerated the procedure well and has no current complaints of chest pain, shortness of breath. He is currently resting comfortably and tolerating room air. - Constitutional Vitals: Temp Pulse Resp BP Pulse Ox 97.8 F 73 15 175/83 96 01/31/17 07:13 01/31/17 07:13 01/31/17 07:13 01/31/17 07:13 01/31/17 07:13 General appearance: Present: cooperative, mild distress, A&O X 3, pleasant, answers questions appropriately Exam: Gen.: Vitals noted. No acute distress. AAOx3 HEENT: PERRL/EOMI, oropharynx clear, Normocephalic, atraumatic Neck: Supple. No adenopathy. Cardiac: RRR, no murmur, +S1/S2 Pulmonary: CTA bilaterally, no wheezes, rales or rhonchi, equal chest expansion Abdomen: soft, nontender, BS noted, no guarding Back: Nontender throughout. MSK: ROM intact, no joint swelling noted Extremities: no BLE edema, nontender calf, no cyanosis or clubbing Neuro: A&Ox3, moves all extremities, no focal deficits Psych: Appropriate mood and behavior Internal Medicine: Result - Labs CBC & Chem 7: 01/31/17 05:50 01/31/17 05:50 Labs: Short CBC 01/31/17 Range/Units 05:50 WBC 6.8 (4.3-11.1) K/mcL Hgb 9.3 L (12.9-16.9) g/dL Hct 28.0 L (37.5-50.1) % Plt Count 200 (140-400) K/mcL BMP 01/31/17 05:50 Sodium 135 L Potassium 4.6 H Chloride 97 L Carbon Dioxide 22 BUN 59 H Creatinine 7.06 H Glucose 105 H Calcium 8.5 L Cardiac Enzymes 01/30/17 Range/Units 13:27 Troponin I 3.47 H* (0-0.03) ng/mL - ABG Interpretation ABG results: ABG ABG pH 7.41 pH Units (7.32-7.45) 01/30/17 07:17 ABG pCO2 36 mmHg (35-45) 01/30/17 07:17 ABG pO2 158 mmHg (85-104) H 01/30/17 07:17 ABG O2 Saturation 99 % (95-98) H 01/30/17 07:17 PT/INR, D-dimer PT 11.0 Seconds (9.4-12.1) 01/29/17 23:07 Consult Discharge Plan - Plan [facility]errals: [facility] [Primary Care Provider] - <Ángel Lu P - Last Filed: 01/31/17 18:35> Date of Encounter: 01/31/17 - Constitutional Vitals: Temp Pulse Resp BP Pulse Ox 97.8 F 69 16 156/76 98 01/31/17 07:13 01/31/17 18:15 01/31/17 13:30 01/31/17 18:15 01/31/17 13:30 Internal Medicine: Result - Labs CBC & Chem 7: 01/31/17 05:50 01/31/17 05:50 Labs: Short CBC 01/31/17 Range/Units 05:50 WBC 6.8 (4.3-11.1) K/mcL Hgb 9.3 L (12.9-16.9) g/dL Hct 28.0 L (37.5-50.1) % Plt Count 200 (140-400) K/mcL BMP 01/31/17 05:50 Sodium 135 L Potassium 4.6 H Chloride 97 L Carbon Dioxide 22 BUN 59 H Creatinine 7.06 H Glucose 105 H Calcium 8.5 L - ABG Interpretation ABG results: ABG ABG pH 7.41 pH Units (7.32-7.45) 01/30/17 07:17 ABG pCO2 36 mmHg (35-45) 01/30/17 07:17 ABG pO2 158 mmHg (85-104) H 01/30/17 07:17 ABG O2 Saturation 99 % (95-98) H 01/30/17 07:17 PT/INR, D-dimer PT 11.0 Seconds (9.4-12.1) 01/29/17 23:07 - Attending Attestation I examined this patient and my medical decision-making was reviewed with the Resident Physician. I agree with the documented findings, disposition and treatment plan as described except to the extent set forth below.
--- NOTE | 2017-01-31 13:33 | Invasive Diagnostic Lab Proc ---
Name: Jarred Gallo Date of Study: 01/31/2017 Date: 1945 Ht: 66.9in Medical Record#: [id number] Age: 71 Wt: 127.87lb Gender: Male BSA: 1.67 Order #: [id number] BMI: 20.07 Physicians Procedure Physician: Heather Lopez MD, FACC Referring MD: Referring MD: Staff Name Position Time In Bonnie Gallo RN Monitor 10:55 AM Beatriz Lovett RN Monitor 10:55 AM Leonora Saavedra RN Tower Cleaner 10:55 AM Mauro Fuentes RT (R) Scrub 10:55 AM Indications Indication Non-Stemi Procedures Performed Procedure L HRT ARTERY/VENTRICLE ANGIO PRQ CARD BAHMAN STENT W/ANGIO 1 VSL Pre-Procedure Checklist Informed consent is complete signed and on chart. H&P is on chart. ID band is on and ID verified with patient. Patient NPO for procedure The procedure was described for the patient and questions were answered. Blood Pressure: 175/83 ECG is on chart. Plan of Care Patient will tolerate the procedure without complications. Adequate level of comfort will be maintained. Hemodynamics will remain stable Patient will recover from procedure without complications. Respiratory function will be maintained. Cardiac rhythm will remain stable. Patient temperature will be maintained. Patient and/or family have verbalized understanding of the procedure. Patient Education Chief Complaint/Reason for Test: Cardiac Cath Developmental Category: Geriatric (65+ years) Developmentally Appropriate for Age: Yes Learning Barriers: None Education Needs: Procedure Education Method: Verbal Information Taught: Cardiac Cath Educational Evaluation: Able to repeat information Intravenous Access Time IV Size Location DC'd Fluid/Drip Rate Units RN 11:04 AM 20g 1 1/4" Patent On Arrival Rt Antecubital 0.9NaCl ml/hr Leonora Saavedra RN 11:04 AM 20g 1 1/4" Patent On Arrival Rt Arm Leonora Saavedra RN Allergies No Known Allergies Vital Signs Time BP (mmHg) HR (bpm) O2 Sat. RR (bpm) LOC 175 / 83 73 96 % 15 11:01 AM / % 5 = Fully awake and oriented or at pre-proc level 11:01 AM / % 4 = Oriented but drowsy 11:16 AM / % 4 = Oriented but drowsy 11:32 AM / % 4 = Oriented but drowsy 10:58 AM 186 / 76 77 94 % 15 11:02 AM 169 / 69 73 99 % 19 11:07 AM 173 / 62 68 98 % 16 11:12 AM 146 / 63 66 97 % 11 11:17 AM 143 / 66 67 98 % 10 11:22 AM 139 / 62 67 98 % 10 11:27 AM 148 / 57 65 98 % 10 11:32 AM 148 / 63 65 99 % 11 11:37 AM 141 / 68 66 98 % 17 11:42 AM 123 / 49 67 96 % 19 12:02 PM 156 / 79 63 94 % 16 12:15 PM 147 / 77 64 96 % 16 12:38 PM 154 / 80 63 96 % 16 12:51 PM 147 / 73 63 98 % 16 Procedural Medications Time Medication Dose Units Method Given By 10:56 AM Oxygen 2 L/min nasal cannula Leonora Saavedra RN 11:01 AM Versed 2 mg Intravenous Leonora Saavedra RN 11:01 AM Fentanyl 50 mcg Intravenous Leonora Saavedra RN 11:10 AM Lidocaine 2% 7 ml Subcutaneous Heather Lopez MD, FACC 11:28 AM Angiomax 0.75mg/kg bolus: 9 ml Intravenous Leonora Saavedra RN 11:28 AM Angiomax 1.75mg/kg/hr: 3 ml/hr Intravenous Leonora Saavedra RN 11:37 AM Nitroglycerin 200 mcg Intracoronary Heather Lopez MD, FACC 11:38 AM Nitroglycerin 200 mcg Intracoronary Heather Lopez MD, FACC 11:42 AM Brilinta 180 mg Orally Leonora Saavedra RN ASA Classification: CLASS II- Mild systemic disease (i.e. well-controlled diabetes, hypertension, asthma, cigarette smoking) Chadwick Score Preprocedure Postprocedure Activity 2- Moves 4 extremities sustained head lift Activity 2- Moves 4 extremities sustained head lift Circulation 2- SBP +/= 20 points of pre-anesthetic level Circulation 2- SBP +/= 20 points of pre-anesthetic level Consciousness 2- Awake and alert oriented x 3 Consciousness 2- Awake and alert oriented x 3 O2 Saturation 2- Able to maintain O2 satruation of 92% on room air O2 Saturation 2- Able to maintain O2 satruation of 92% on room air Respiratory 2- Able to deep breathe and cough well Respiratory 2- Able to deep breathe and cough well Total Score 10 Total Score 10 Contrast Agent: Isovue Diagnostic Contrast: 152 ml Total Contrast: 152 ml Fluoro Dose: 328 mGy Procedure Log Time Note Enter By 10:18 AM Bolus angiogram of left Ventricle complete: 8 ml/sec for a total of 24 mls oumm 10:55 AM Pt arrived to cath lab technologist 2 at 10:55 [facility] 10:55 AM Bonnie Gallo RN Position: Monitor Time in: 10:55 mm 10:55 AM Beatriz Lovett RN Position: Monitor Time in: 10:55 mm 10:55 AM Leonora Saavedra RN Position: Tower Cleaner Time in: 10:55 mm 10:55 AM Mauro Fuentes (R) Position: Scrub Time in: 10:55 mm 10:55 AM Patient charges- Angio tray pack, Navilyst 3mm J, Pulse Oximetry and ACIST tubing and transducer [facility] 10:55 AM Case Delayed No mm 10:56 AM Hair removed from procedure site in procedure lab using clippers. Bilateral groin prepped with Chloraprep by Mauro Fuentes (R), safety strap applied then patient was draped. Skin intact. mm 10:56 AM Physicodell paged/called 10:56. oumm 10:56 AM Physicodell responded and notified patient is ready 10:56 mm 10:56 AM Physician arrived 10:56 [facility] 10:56 AM Meet and greet completed [facility] 10:56 AM Sign in performed according to hospital policy. mm 10:56 AM Procedure start 10:56 [facility] 10:56 AM Case Start 10:56 AM CathStat 10:56 AM Vitals capture started with the following parameters, Patient=Adult, Interval=5 min, Initial Wkbvmoxp=214 mmHg, Deflation Rate=5 mmHg, Cuff placed on Left Arm 10:57 AM Time: 10:56 Oxygen on at 2 L/min per nasal cannula by Leonora Saavedra RN [facility] 10:57 AM Recorded ECG: HR=77 Condition=Condition 1 10:58 AM HR=77 bpm, ZLWS=613/76 mmhg, SpO2=94.0 %, Resp=15 B/min, Comment=SR 11:01 AM Time: 11:01 Versed 2 mg Intravenous Given by Leon[facility]: AM Time: : Fentanyl 50 mcg Intravenous Given by Leonora Saavedra RN narcisodaniela : AM Time: : Patient comfortable and pain free: Yes [facility] 11: AM Time: :LOC: 5 = Fully awake and oriented or at pre-proc level [facility] 11[facility]02 AM Clinical Presentation: Non-STEMI [facility] 11:02 AM HR=73 bpm, RSPX=012/69 mmhg, SpO2=99.0 %, Resp=19 B/min, Comment=SR 11:03 AM Pressure channel 3 zeroed. 11:05 AM ASA Class CLASS II- Mild systemic disease (i.e. well-controlled diabetes, hypertension, asthma, cigarette smoking) [facility] 11:07 AM HR=68 bpm, RPNX=050/62 mmhg, SpO2=98.0 %, Resp=16 B/min, Comment=SR 11:08 AM Time out performed according to hospital policy [facility] 11: AM Time: : 7 ml Lidocaine 2% to right groin Subcutaneous Given by Heather Lopez MD, [facility] 11:10 AM Access obtained by percutaneous puncture. 5Fr 10cm Terumo [place] sheath placed in right Femoral artery. [id number] [facility] 11:11 AM 0.035 145cm Navilyst 3mmJ wire [id number] [facility] 11:11 AM 5Fr FL 4 catheter inserted over the wire [facility] 11:11 AM Wire removed [facility] 11:11 AM LCA angiography performed in multiple views. [facility] 11:12 AM HR=66 bpm, FQNS=686/63 mmhg, SpO2=97.0 %, Resp=11 B/min, Comment=SR 11:13 AM Recorded Pressure: Ao, HR=67, Condition=Condition 1 (Aorta) Ao 137/72/100 11:14 AM wire reinserted [facility] 11:14 AM Catheter removed [facility] 11:14 AM 5Fr FR 4 catheter inserted over the wire [facility] 11:15 AM Wire removed [facility] 11:16 AM RCA angiography performed in GERRY [facility] 11:17 AM wire reinserted [facility] 11:17 AM Catheter removed [facility] 11:17 AM 5Fr Pigtail catheter inserted over the wire [facility] mm 11:17 AM HR=67 bpm, UOTD=985/66 mmhg, SpO2=98.0 %, Resp=10 B/min, Comment=SR 11:18 AM Pressure channel 3 zero failed. 11:18 AM Pressure channel 3 zero failed. 11:18 AM Wire removed [facility] 11:18 AM Pressure channel 3 zeroed. 11:18 AM Recorded Pressure: LV, HR=67, Condition=Condition 1 (Left Ventricle) LV 117/16/16 11:19 AM Recorded Pressure: LV, Ao, HR=66, Condition=Condition 1 (Left Ventricle) LV 111/22/23, (Aorta) Ao 115/56/85 11:19 AM Catheter selectively placed in left ventricle [facility] 11:20 AM wire reinserted [facility] 11:20 AM Catheter removed [facility] 11:22 AM HR=67 bpm, OIMX=613/62 mmhg, SpO2=98.0 %, Resp=10 B/min, Comment=SR 11:24 AM Lesion found in Mid LAD. Pre Stenosis: 80 Pre EZE Flow: 3: Complete and Brisk Flow/Perfusion [facility] 11:24 AM Sheath exchanged for a 6 Fr 11 cm Cordis Elsie sheath [id number] [facility] 11:25 AM 6Fr XB LAD 3.5 Jordan Bright-Tip guide catheter was used to cannulate the PCI vessel successfully. reused? No [facility] 11:25 AM Inflation device was opened. [facility] 11:26 AM Mid/Distal Left Anterior Descending Coronary Artery and diagonal branches with 80% stenosis. [facility] 11:27 AM HR=65 bpm, HJIU=868/57 mmhg, SpO2=98.0 %, Resp=10 B/min, Comment=SR 11: AM Time: : Angiomax 0.75mg/kg bolus: 9 ml Intravenous Given by Leonora Saavedra RN Paige pump narcisodaniela 11: AM Time: : Angiomax 1.75mg/kg/hr: 3 ml/hr Intravenous Given by Leonora Saavedra RN Paige pump [facility] 11:29 AM Wire removed [facility] 11:29 AM .014 Prowater 180cm guide wire across target lesion- successful. reused? No mm 11:30 AM Recorded Pressure: Ao, HR=65, Condition=Condition 1 (Aorta) Ao 142/52/86 11:31 AM 2.5 mm x 15 mm Emerge Monorail balloon across target lesion- successful. reused? No mm 11:32 AM Time: 11:16LOC: 4 = Oriented but drowsy 11:32 AM Time: 11:01 Patient comfortable and pain free: Yes [facility] 11:32 AM Balloon inflated @ 8 rick for 20 seconds [facility] 11:32 AM HR=65 bpm, KSIS=229/63 mmhg, SpO2=99.0 %, Resp=11 B/min, Comment=SR 11:32 AM Balloon inflated @ 8 rick for 20 seconds [facility] 11:34 AM Balloon catheter removed intact. 11:34 AM 2.75mm x 32mm Synergy drug-eluting stent across target lesion- successful Lot #[id number] [facility] 11:36 AM Stent deployed @ 12 rick for 30 seconds [facility] 11:36 AM Stent balloon reinflated @ 14 rick for 15 seconds [facility] 11:37 AM HR=66 bpm, JFKL=655/68 mmhg, SpO2=98.0 %, Resp=17 B/min, Comment=SR 11:37 AM Stent delivery system removed intact. 11:38 AM Time: 11:37 Nitroglycerin 200 mcg Intracoronary Given by Heather Lopez MD, [facility] 11:38 AM Time: 11:38 Nitroglycerin 200 mcg Intracoronary Given by Heather Lopez MD, [facility] 11:40 AM Guide wire removed intact. 11:41 AM Guide catheter removed intact. [facility] 11:41 AM Bolus angiogram of right Femoral complete: 2 ml/sec for a total of 4 mls [facility] 11:42 AM HR=67 bpm, NAEE=595/49 mmhg, SpO2=96.0 %, Resp=19 B/min, Comment=SR 11:42 AM Time: 11:42 Brilinta 180 mg Orally Given by Leonora Saavedra RN [facility] 11:43 AM Procedure completed at 11:43 [facility] 11:43 AM Sign out completed: Radiation Dose 327.84 mGy Fluoro Time: 6.1 Isovue 370 - 200ml contrast 152 ml given by Heather Lopez MD, FACC. Complications: NoneCardiac Rehab Consult needed: YesConfirmed administered medications: Yes [facility] 11:43 AM Isovue 370 - 200ml,1 Bottle(s) used. [facility] 11:43 AM Sheath left in place to be pulled on floor/holding area [facility] 11:45 AM Post ECG NSR [facility] 11:45 AM Post Blood Pressure 123/49 [facility] 11:46 AM 11:45 Post Pulses Bilateral DP & PT 1+ [facility] 11:46 AM Information taught Cardiac Cath and PCI [facility] 11:46 AM Education needs Procedure, Plan of Care, Disease Process, Safe & Effective Use of Medications, and Responsibilities of Patient in Care [facility] 11:46 AM Learning barriers :None [facility] 11:46 AM Education Methods Verbal [facility] 11:46 AM Education evaluation Able to repeat information [facility] 11:46 AM Site status No bleeding/hematoma - Rt Groin as reported by Mauro Fuentes RT (R) at 11:46 [facility] 11:46 AM Opsite applied [facility] 11:46 AM Plavix, Effient or Brilinta given Yes [facility] 11:47 AM Time: 11:32LOC: 4 = Oriented but drowsy [facility] 11:47 AM Delay to floor No [facility] 11:47 AM Time: 11:32 Patient comfortable and pain free: Yes [facility] 11:47 AM Family placed in consult room. [facility] 11:47 AM Complications: None [facility] 11:47 AM Fluoro Time: 6.1 [facility] 11:47 AM Isovue 370 - 200ml contrast 152 ml given by Heather Lopez MD, FACC. [facility] 11:47 AM Radiation Dose 327.84 mGy [facility] 11:48 AM Coronary Dominance: right [facility] 11:49 AM Lesion found in Proximal RCA. Pre Stenosis: 100 Pre EZE Flow: 0: No Flow/No perfusion [facility] 11:49 AM Lesion found in LMCA. Pre Stenosis: 40 Pre EZE Flow: 3: Complete and Brisk Flow/Perfusion [facility] 11:49 AM Lesion found in Proximal LAD. Pre Stenosis: 40 Pre EZE Flow: 3: Complete and Brisk Flow/Perfusion [facility] 11:49 AM Lesion found in Proximal Circumflex. Pre Stenosis: 30 Pre EZE Flow: 3: Complete and Brisk Flow/Perfusion [facility] 11:49 AM Lesion found in Ramus. Pre Stenosis: 30 Pre EZE Flow: 3: Complete and Brisk Flow/Perfusion [facility] 11:50 AM Left Main Coronary Artery with 40% stenosis [facility] 11:50 AM Proximal Left Anterior Descending Coronary Artery with 40% stenosis. [facility] 11:50 AM Circumflex, Obtuse Marginal, Left Posterior Descending, and Left Posterolateral Coronary Arteries with 30 % stenosis. [facility] 11:50 AM Right Coronary, Right Posterior Descending Arteries with Right Posterolateral and Acute Marginal branches with 100 % stenosis. [facility] 11:50 AM Ramus with 30% stenosis. [facility] 11:59 AM Report given to Lela ARTIS Pt taken to Holding room Room #3. 11:58 [facility] 12:00 PM Report given to Helene ARTIS 2N Room #6. 11:59 [facility] 12:00 PM Patient out of room: 12:00 [facility] 01:25 PM pt taken to 2N by Ankit Fuentes and Kathi Wiseman [email or web address] Complications Complication None Hemodynamics Pressures Site Systolic/A Wave Diastolic/V Wave Mean AO 137 72 100 LV 117 16 16 LV 111 22 23 AO 115 56 85 AO 142 52 86 Post Procedure Information Blood Pressure: 123/49 mmHg Rhythm: NSR Post procedural instructions were given Site Checks Time Location Status Staff Sheath In? Note 11:46 AM Rt Groin No bleeding/hematoma Mauro Fuentes RT (R) 12:01 PM Rt Groin No bleeding/ No Hematoma Melita Parkinson RT (R) 12:14 PM Rt Groin No bleeding/ No Hematoma Cristobal Gibson RN 12:38 PM Rt Groin No bleeding/ No Hematoma 12:50 PM Rt Groin No bleeding/ No Hematoma Pulses Time Site Pre-Procedure Post-Procedure Note Bilateral DP & PT 2+ Bilateral radial 2+ 11:45:00 AM Bilateral DP & PT 1+ 01/31/2017 12:02:00 PM Bilateral DP & PT 1+ 01/31/2017 12:15:00 PM Bilateral DP & PT 1+ 01/31/2017 12:38:00 PM Bilateral DP & PT 1+ 01/31/2017 12:51:00 PM Bilateral DP & PT 1+ Updated by Leonora Saavedra RN on 01/31/2017 1:26:07 PM electronically signed on 01/31/2017 1:27:21 PM with status of Final
[2017-01-31] MEDS: *HR* Morphine 2 MG/ML SYRINGE IVP PRN (14:25)
[2017-01-31] MEDS ORDERED: *HR* Atropine Sulfate 1 MG/ML VIAL ONE (15:11)
[2017-01-31] MEDS: Insulin DETEMIR 100 UNIT/ML X5UNITS SQ SCH (21:04)
[2017-02-01 07:40] LABS: Potassium 5.5 mEq/L (3.5-4.5)
[2017-02-01 07:47] LABS: Hematocrit 33.2 % (37.5-50.1); Mean Corpuscular HGB Conc 32.8 g/dL (31.6-35.5); Mean Corpuscular Hemoglobin 30.4 pg (28.0-33.3); Mean Corpuscular Volume 92.5 fL (83.0-100.0); Platelet Count 252 K/mcL (140-400); Red Blood Count 3.59 M/mcL (4.19-5.50)
[2017-02-01 07:57] LABS: Hemoglobin 10.9 g/dL (12.9-16.9)
--- NOTE | 2017-02-01 08:20 | Discharge Summary ---
<Mainor Garcia - Last Filed: 02/02/17 11:06> Date of Encounter: 02/02/17 Time of Encounter: 08:12 - Discharge Diagnosis (1) Acute respiratory failure with hypoxemia Priority: Primary Status: Resolved (2) Pulmonary edema Priority: Secondary Status: Resolved Qualifiers: Chronicity: acute Qualified Code(s): J81.0 - Acute pulmonary edema (3) CHF (congestive heart failure) Priority: Secondary Status: Chronic Qualifiers: Congestive heart failure type: systolic Congestive heart failure chronicity : acute Qualified Code(s): I50.21 - Acute systolic (congestive) heart failure (4) NSTEMI (non-ST elevated myocardial infarction) Priority: Secondary Status: Acute (5) ESRD (end stage renal disease) Priority: Secondary Status: Chronic (6) IDDM (insulin dependent diabetes mellitus) Priority: Secondary Status: Chronic (7) DVT prophylaxis Priority: Secondary Status: Acute - Discharge Medications Prescriptions: Atorvastatin [Lipitor] 40 mg PO HS #30 tablet Carvedilol [Coreg] 12.5 mg PO BIDWM #60 tablet Clopidogrel [Plavix] 75 mg PO DAILY #30 tablet Lisinopril [Zestril] 10 mg PO DAILY #30 tablet Home Medications: Aspirin [Lo-Dose Aspirin EC] 81 mg PO DAILY 01/29/17 [History] Cinacalcet HCl [Sensipar] 60 mg PO DAILY 01/29/17 [History] Fenofibrate Nanocrystallized [Tricor] 145 mg PO DAILY 01/29/17 [History] Insulin Glargine,Hum.rec.anlog [Lantus Solostar] 15 unit SQ HS 01/29/17 [History ] Insulin Human Regular [HumuLIN R] 0 unit SQ TID PRN 01/29/17 [History] Renal Vitamin [Renal Caps Softgel] 1 mg PO DAILY 01/29/17 [History] Sevelamer [Renvela] 2,400 mg PO TIDWM 01/29/17 [History] amLODIPine [Norvasc] 5 mg PO BID 01/29/17 [History] hydrALAZINE [HydrALAZINE] 25 mg PO BID 01/29/17 [History] Dextrose Gel [Gluctose] 15 gm PO ONCE PRN 01/30/17 [History] Glucagon,Human Recombinant [Glucagon Emergency Kit] 1 mg IJ AD PRN 01/30/17 [ History] Losartan Potassium [Cozaar] 50 mg PO BID 01/30/17 [History] Atorvastatin [Lipitor] 40 mg PO HS #30 tablet 02/01/17 [Rx] Carvedilol [Coreg] 12.5 mg PO BIDWM #60 tablet 02/01/17 [Rx] Clopidogrel [Plavix] 75 mg PO DAILY #30 tablet 02/01/17 [Rx] Lisinopril [Zestril] 10 mg PO DAILY #30 tablet 02/02/17 [Rx] Allergies/Adverse Reactions: 3 Allergy/AdvReac Type Severity Reaction Status Date / Time No Known Allergies Allergy Verified 01/29/17 15:16 Procedures/tests Complete & Pending: Procedures Performed prior 72 hours Category Date Time Status CL Cardiac Catheterization [CL] Routine Real Estate Coordinator 01/31/17 10:24 Completed ECG 12 lead ECG [ECG] AM 0600 Y 01/30/17 06:00 Ordered EV echocardiogram Routine Y 01/30/17 21:12 Completed Date of admission: 01/29/17 21:12 [facility] care physician: [facility]CP [facility] Consults: 01/29/17 21:15 Consult to Physician [CONS] Routine Consulting Provider: Aaron Ortiz Reason for Consult: dialysis needs Call Completed: Yes 01/29/17 23:28 Consult to Cardiology [CONS] Routine Comment: Consulting Provider: Katt Crook Reason for Consult: NSTEMI; acute CHF Call Completed: No 01/29/17 23:30 Consult to Dialysis [CONS] ONCE 01/30/17 09:45 Consult to Dialysis [CONS] ONCE 01/30/17 10:10 Consult to Cardiac Rehabilitation-Phase1 [CONS] Routine Comment: Reason for Consult: NSTEMI Call Completed: No 01/30/17 12:44 Consult to Education Officer [CONS] Routine Reason for SW Consult: plan for LHC in AM; [facility] patient. Patient is concerned about coverage. Discharging clinician: Mainor Garcia Anticipated date of discharge: 02/02/17 - Patient Status Disposition: Home, Self-Care Condition: Fair Functional capacity at discharge: independent ambulation Overall status at discharge: patient is progressing back to baseline - Discharge Instructions Instructions: Myocardial Infarction (DC) Follow Up With: Dea Veliz, ISABELA [Partnered Physician] - (Need [facility] approval Cardiology will call patient at home with an appointment) NC,PCP [Primary Care Provider] - 02/10/17 9:45 am (this is with the red team) Additional Instructions: Please follow up with your primary care provider regarding further management of your chronic medical conditions. - Diet and Activity Activity: increase activity as tolerated, resume usual activities as tolerated Diet: advance to your usual diet, diabetic diet, low salt diet Hospital course: Mr. Gallo is a 71 year old male presenting from [facility] ER for concerns of CHF. He was experiencing SOB, weight gain of 5 lbs, productive cough with clear sputum. Denied fevers or chills. In the ED, patient was found in respiratory distress, frothing, with worsening pulmonary edema. He improved on BiPAP. Nephrology was consulted for urgent dialysis and they performed HD that night. Labs were significant for WBC of 12.3, H/H of 8.6/26.4 , ABG with pH of 7.41, CO2 36, pO2 158. Na 135, K 5.1, BUN/Cr of 77/8.64, troponin of 1.42. No EKG changes. Patient was admitted to medicine service for further management of Fluid overload in the setting of ESRD, NSTEMI. During course of hospital stay, patient's breathing status improved with HD removal of fluid. He is currently tolerating room air. Troponin was trended and peaked to 4.25. Otherwise, Labs have remained stable. Once the patient was more stable in his respiratory status, cardiology was consulted and performed a LHC showing stenosis of the mid LAD and they placed 1 BAHMAN. He remained asymptomatic following LHC and will be discharged home in stable medical condition and instructed to follow up with his PCP, occ therapy asst and to take all of his new medications everyday. He was instructed to come back to ED if his symptoms should return. - Time Spent with Patient Total time spent providing and/or coordinating discharge services: 40 minutes - Constitutional Vitals: Temp Pulse Resp BP Pulse Ox 97.4 F L 74 19 179/85 100 02/01/17 07:01 02/01/17 07:01 02/01/17 07:01 02/01/17 07:01 02/01/17 07:01 General appearance: Present: cooperative, mild distress, A&O X 3, pleasant, answers questions appropriately Exam: Gen.: Vitals noted. No acute distress. AAOx3. Cachectic HEENT: PERRL/EOMI, oropharynx clear, Normocephalic, atraumatic. MMM Neck: Supple. No adenopathy. Cardiac: RRR with occasional PVCs, no murmur, +S1/S2 Pulmonary: CTA bilaterally, no wheezes, rales or rhonchi, equal chest expansion Abdomen: soft, nontender, BS noted, no guarding Back: Nontender throughout. MSK: ROM intact, no joint swelling noted Extremities: no BLE edema, nontender calf, no cyanosis or clubbing Neuro: A&Ox3, moves all extremities, no focal deficits Psych: Appropriate mood and behavior <Ángel Lu P - Last Filed: 02/02/17 18:08> Date of Encounter: 02/02/17 Procedures/tests Complete & Pending: Procedures Performed prior 72 hours Category Date Time Status CL Cardiac Catheterization [CL] Routine Real Estate Coordinator 01/31/17 10:24 Completed EV echocardiogram Routine Y 01/30/17 21:12 Completed Date of admission: 01/29/17 21:12 Primary care physician: [facility]CP [facility] Consults: 01/29/17 21:15 Consult to Physician [CONS] Routine Consulting Provider: Aaron Ortiz Reason for Consult: dialysis needs Call Completed: Yes 01/29/17 23:28 Consult to Cardiology [CONS] Routine Comment: Consulting Provider: Katt Crook Reason for Consult: NSTEMI; acute CHF Call Completed: No 01/29/17 23:30 Consult to Dialysis [CONS] ONCE 01/30/17 09:45 Consult to Dialysis [CONS] ONCE 01/30/17 10:10 Consult to Cardiac Rehabilitation-Phase1 [CONS] Routine Comment: Reason for Consult: NSTEMI Call Completed: No 01/30/17 12:44 Consult to Education Officer [CONS] Routine Reason for SW Consult: plan for LHC in AM; [facility]. Patient is concerned about coverage. 02/01/17 10:30 Consult to Dialysis [CONS] ONCE Hospital course: Mr. Gallo is a 71 year old male - Time Spent with Patient Total time spent providing and/or coordinating discharge services: - Constitutional Vitals: Temp Pulse Resp BP Pulse Ox 97.9 F 71 16 149/70 96 02/02/17 10:08 02/02/17 10:08 02/02/17 07:56 02/02/17 10:08 02/02/17 10:08 - Attending Attestation I examined this patient and my medical decision-making was reviewed with the Resident Physician. I agree with the documented findings, disposition and treatment plan as described except to the extent set forth below. In March of this discharge summary was created on 02/01/2017, this patient was discharged on 02/02/2017. I have seen this patient on 02/02/2017 and discussed with the patient at length regarding discharge instructions.
[2017-02-01] MEDS: Furosemide 40 MG/4 ML VIAL IVP SCH ×2 (08:29→17:37)
[2017-02-01] MEDS: Fenofibrate 54 MG TABLET PO SCH (08:30)
[2017-02-01] MEDS: Famotidine 20 MG TABLET PO SCH (08:31)
[2017-02-01] MEDS: amLODIPine 5 MG TABLET PO SCH (08:31)
[2017-02-01] MEDS: Aspirin Enteric Coated 81 MG Tablet PO SCH (08:31)
[2017-02-01] MEDS: Renal Vitamin 1 MG CAPSULE PO SCH (08:31)
[2017-02-01] MEDS: Insulin LISPRO 300 UNITS/3 ML VIAL SQ SCH ×4 (08:32→21:36)
--- NOTE | 2017-02-01 10:04 | Event Note ---
Date of Encounter: 02/01/17 Time of Encounter: 10:02 Patient is status post coronary stent placement yesterday. He is scheduled for dialysis today. He is anxious to go home. We have arranged for him to have outpatient dialysis at 11:30 this morning. From a renal standpoint he could then be discharged home prior to having dialysis as an outpatient.
--- NOTE | 2017-02-01 10:18 | Cardiology Progress Note ---
Date of Encounter: 02/01/17 Time of Encounter: 10:00 Assessment and Plan (1) NSTEMI (non-ST elevated myocardial infarction) Current Visit: Yes Status: Acute Troponin 0.36, 1.42, 4.25 in the setting of acute respiratory failure, accelerated HTN, and ESRD. Patient denies chest; however ACS cannot be ruled out. Ischemic ECG changes noted. Patient required emergent HD (x2) and was on Bipap. Now SPO2 >95% on RA. 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 TTE: EF 40-45% with segmental wall motion abnormality. Patient appears euvolemic upon exam; volume mgmt per Nephrology, on HD. Continue BB, ACEi. Post PCI discharge instructions discussed including importance of uninterrupted DAPT (asa + plavix) for at least 1 year. Care of cath site and restrictions discussed. Continue DAPT, statin, and betablocker. Consider addition of nitrates if needed. BP remains severely elevated today, SBP >180 despite AM medications. Will increase ACEi and given x1 dose of Lisinopril 10 mg now. Recommend improved control of BP prior to discharge--plan communicated with primary team and Nephrology (Dr. Ortiz) and plan for inpatient HD today with possible d/c tomorrow. Cardiology will sign-off, will coordinate appt in the outpatient setting. (2) Acute respiratory failure with hypoxemia Current Visit: Yes Status: Resolved p02=30% upon arrival to [place] ED, required BiPap. Now stable, SPO2 >95% on RA (3) Hypertensive emergency Current Visit: Yes Status: Acute Initial BP 242/112 upon presentation at [place] ED. Remains elevated, recommend conservation titration of antihypertensives. See plan as stated above, recommend BP control prior to discharge. (4) ESRD (end stage renal disease) Current Visit: Yes Status: Chronic ESRD on HD, MWF. Nephrology following. Discussion w patient/family: The assessment and plan as outlined above was discussed with the patient and/or family members who expressed understanding and agreement. All questions were answered. Thank you for involving us in the care of your patient. Please call with any questions. The patient will be discussed and reviewed with Dr. Rodas; Cardiology will sign- off, please call with questions. Subjective Principal diagnosis: Acute respiratory failure, NSTEMI Interval history: Seen and examined earlier this AM. Denies chest pain or discomfort this AM. No issues with cath site. Remains hypertensive with SBP >180 despite AM medication administration. Objective Vital Signs, Last 4 Hours Temp Pulse Resp BP Pulse Ox 02/01/17 08:38 75 02/01/17 07:01 97.4 F L 74 19 179/85 100 General: Conversant, No Apparent Distress HEENT: Atraumatic, Normocephaly, Mucus Membranes Moist Cardiac: Reg Rate and Rhythm, Normal S1 and S2 Lungs: Other (Few bibasilar rales) Neuro: Alert and responsive Abdomen: Soft Skin: No rashes noted on visualized skin Musculoskeletal: No Chest Wall Tenderness Extremities: No Edema, Normal Pulses Results 02/01/17 06:50 02/01/17 06:50 Lab Results 01/31/17 02/01/17 02/01/17 19:23 06:50 06:50 WBC 8.5 Hgb 10.9 L D Hct 33.2 L Plt Count 252 APTT 77.2 H Sodium 134 L Potassium 5.5 H Chloride 95 L Carbon Dioxide 20 BUN 83 H D Creatinine 8.86 H Glucose 120 H Calcium 9.0 Active Medications Acetaminophen (Tylenol) 650 mg PO Q6HR PRN PRN Reason: Mild Pain (1-3) Stop: 07/31/17 21:13 Amlodipine Besylate (Norvasc) 5 mg PO DAILY [facility] PRN Reason: Protocol Stop: 08/03/17 09:01 Last Admin: 02/01/17 08:31 Dose: 5 mg Aspirin (Aspirin Ec) 81 mg PO DAILY [facility] Stop: 08/01/17 09:01 Last Admin: 02/01/17 08:31 Dose: 81 mg Atorvastatin Calcium (Lipitor) 40 mg PO HS [facility] Stop: 08/01/17 21:01 Last Admin: 01/31/17 21:12 Dose: 40 mg Carvedilol (Coreg) 12.5 mg PO BIDWM [facility] PRN Reason: Protocol Stop: 08/02/17 17:01 Last Admin: 02/01/17 08:31 Dose: 12.5 mg Cinacalcet (Sensipar) 60 mg PO DAILY [facility] Stop: 08/01/17 09:01 Last Admin: 02/01/17 08:31 Dose: 60 mg Clopidogrel Bisulfate (Plavix) 75 mg PO DAILY [facility] Stop: 08/03/17 09:01 Last Admin: 02/01/17 08:31 Dose: 75 mg Dextrose/Water (Dextrose 50% (Syg)) 25 ml IVP AD PRN PRN Reason: Hypoglycemia Stop: 07/31/17 21:20 Last Admin: 01/30/17 06:15 Dose: 25 ml Famotidine (Pepcid) 20 mg PO DAILY [facility] Stop: 08/01/17 09:01 Last Admin: 02/01/17 08:31 Dose: 20 mg Fenofibrate (Tricor) 162 mg PO DAILY [facility] Stop: 08/01/17 09:01 Last Admin: 02/01/17 08:30 Dose: 162 mg Furosemide (Lasix) 80 mg IVP BIDDIURETIC [facility] Stop: 08/01/17 08:48 Last Admin: 02/01/17 08:29 Dose: 80 mg Glucagon (Glucagen) 1 mg IM ONCE PRN PRN Reason: Hypoglycemia Stop: 07/31/17 21:20 Glucose (Gluctose) 15 gm PO ONCE PRN PRN Reason: Hypoglycemia Stop: 07/31/17 21:20 Glucose (Gluctose) 30 gm PO ONCE PRN PRN Reason: Hypoglycemia Stop: 07/31/17 21:20 Hydralazine HCl (Hydralazine) 10 mg IVP Q6HR PRN PRN Reason: Hypertension Stop: 08/02/17 14:12 Last Admin: 02/01/17 04:00 Dose: 10 mg Dextrose (Dextrose 5%) 1,000 mls @ 100 mls/hr IVC .Q10H PRN PRN Reason: HYPOGLYCEMIA Stop: 07/31/17 21:20 Sodium Chloride (0.9 % Sodium Chloride) 1,000 mls @ 0 mls/hr PRIME .Q0M [facility] PRN Reason: As Directed Stop: 07/31/17 23:31 Sodium Chloride (0.9 % Sodium Chloride) 250 mls @ 937.5 mls/hr IVC .Q16M PRN PRN Reason: Hypotension Stop: 08/01/17 09:33 Insulin Detemir (Levemir) 15 unit SQ HS [facility] Stop: 07/31/17 21:46 Last Admin: 01/31/17 21:04 Dose: 15 unit Insulin Human Lispro (Humalog) 0 units SQ TIDAC [facility] PRN Reason: Protocol Stop: 08/01/17 07:31 Last Admin: 02/01/17 08:32 Dose: Not Given Insulin Human Lispro (Humalog) 0 units SQ HS [facility] PRN Reason: Protocol Stop: 08/01/17 21:01 Last Admin: 01/31/17 21:12 Dose: Not Given Lisinopril (Zestril) 2.5 mg PO DAILY [facility] PRN Reason: Protocol Stop: 08/03/17 09:01 Last Admin: 02/01/17 08:31 Dose: 2.5 mg Morphine Sulfate (Morphine Sulfate) 2 mg IVP Q4HR PRN PRN Reason: Chest Pain Stop: 07/31/17 21:13 Last Admin: 01/31/17 14:25 Dose: 2 mg Naloxone HCl (Narcan) 0.4 mg IVP Q2MIN PRN PRN Reason: Opioid Reversal Stop: 07/31/17 21:13 Ondansetron HCl (Zofran) 4 mg IVP Q8HR PRN PRN Reason: Nausea And Vomiting Stop: 07/31/17 21:13 Sevelamer HCl (Renvela) 2,400 mg PO TIDWM [facility] Stop: 08/01/17 08:01 Last Admin: 02/01/17 08:30 Dose: 2,400 mg Vitamin B Complex/Vit C/Folic Acid (Renal Caps Softgel) 1 mg PO DAILY [facility] Stop: 08/01/17 09:01 Last Admin: 02/01/17 08:31 Dose: 1 mg - Imaging and Cardiology Echo: report reviewed Cardiac cath: report reviewed Other Results: 12 hour tele: avg HR=71 SR. No significant event noted. - EKG Interpretation EKG results cardiology: personally reviewed Consult Discharge Plan - Plan Additional Instructions: Please follow up with your primary care provider regarding further management of your chronic medical conditions. Referrals: Dea Veliz CNP [Partnered Physician] - (Need [facility] approval Cardiology will call patient at home with an appointment) [facility] [Primary Care Provider[facility] - 02/10/17 9:45 am (this is with the red team) Prescriptions: Atorvastatin [Lipitor] 40 mg PO HS #30 tablet Carvedilol [Coreg] 12.5 mg PO BIDWM #60 tablet Clopidogrel [Plavix] 75 mg PO DAILY #30 tablet Lisinopril [Zestril] 2.5 mg PO DAILY #30 tablet
[2017-02-01] MEDS ORDERED: 0.9 % Sodium Chloride 250 ML IVC PRN (10:28)
--- NOTE | 2017-02-01 13:34 | Internal Med Progress Note ---
<TraeMainor copeland - Last Filed: 02/01/17 14:09> Date of Encounter: 02/01/17 Time of Encounter: 08:10 - Assessment and plan (1) NSTEMI (non-ST elevated myocardial infarction) Current Visit: Yes Status: Acute Assessment and plan: - Likely etiologies include demand ischemia, chronic renal failure - Troponin of 1.42 on admission, most recently 4.25. No EKG changes - Left heart catheterization yesterday with placement of 1 drug-eluting stent in mid LAD - Cardiology has been consulted, appreciate recommendations - Continue asa, BB, statin, plavix, aceI. Consult cardiac rehab. - Tolerated well, will attempt to better control blood pressure before discharge. (2) Acute respiratory failure with hypoxemia Current Visit: Yes Status: Resolved Assessment and plan: - Much improved, currently tolerating room air speaking in full sentences. - Likely secondary to congestive heart failure exacerbation with fluid overload versus possible pneumonia - ABG yesterday showed a pH of 7.41, PCO2 of 36, PO2 of 158, HCO3 of 26 - Cardiology has been consulted for worsening heart failure, nephrology has been consulted for fluid overload - Further plans as below (3) Pulmonary edema Current Visit: Yes Status: Resolved Assessment and plan: - Resolved. - Chest x-ray and arrange for return showed increased interstitial markings concerning for initiation edema, right infrahilar opacity - Received ultrafiltration monday evening at 0200, scheduled for normal dialysis tomorrow (MWF) - Clinically improving with fluid removal - Continue Lasix 80 mg IV twice a day, strict I/O's. -3 L since admission - Will receive dialysis this afternoon. Qualifiers: Chronicity: acute Qualified Code(s): J81.0 - Acute pulmonary edema (4) CHF (congestive heart failure) Current Visit: Yes Status: Chronic Assessment and plan: - Echocardiogram this morning showed a ejection fraction of 40-45%, mild diastolic dysfunction, no significant valvular dysfunction - Continue diuresis with Lasix, dialysis as above - Left heart catheter performed yesterday with placement of 1 BAHMAN in mid LAD. - Continue BB, Mauricio, statin, plavix, asa Qualifiers: Congestive heart failure type: systolic Congestive heart failure chronicity : acute Qualified Code(s): I50.21 - Acute systolic (congestive) heart failure (5) ESRD (end stage renal disease) Current Visit: Yes Status: Chronic Assessment and plan: MWF dialysis. Today BUN/creatinine of 59/7.06 Nephrology consulted, appreciate recommendations (6) IDDM (insulin dependent diabetes mellitus) Current Visit: Yes Status: Chronic Assessment and plan: A1c of 6.4 Sliding scale insulin Home basal insulin (7) DVT prophylaxis Current Visit: Yes Status: Acute Assessment and plan: Will add SCDs in place of heparin due to recent C - Time Spent With Patient 25 - 35 minutes - Subjective Interval history: Mr. Gallo was seen and examined at bedside this morning. He states he is doing very well and has no complaints of chest pain, SOB, fevers, chills, cough. He is tolerating his PCI yesterday well. - Constitutional Vitals: Temp Pulse Resp BP Pulse Ox 97.6 F 63 16 151/74 93 02/01/17 11:37 02/01/17 11:37 02/01/17 11:37 02/01/17 11:37 02/01/17 11:37 General appearance: Present: cooperative, mild distress, A&O X 3, pleasant, answers questions appropriately Exam: Gen.: Vitals noted. No acute distress. AAOx3. cachectic. HEENT: PERRL/EOMI, oropharynx clear, Normocephalic, atraumatic Neck: Supple. No adenopathy. Cardiac: RRR, no murmur, +S1/S2 Pulmonary: CTA bilaterally, no wheezes, rales or rhonchi, equal chest expansion Abdomen: soft, nontender, BS noted, no guarding Back: Nontender throughout. MSK: ROM intact, no joint swelling noted Extremities: no BLE edema, nontender calf, no cyanosis or clubbing Neuro: A&Ox3, moves all extremities, no focal deficits Psych: Appropriate mood and behavior Internal Medicine: Result - Labs CBC & Chem 7: 02/01/17 06:50 02/01/17 06:50 Labs: Short CBC 02/01/17 Range/Units 06:50 WBC 8.5 (4.3-11.1) K/mcL Hgb 10.9 L D (12.9-16.9) g/dL Hct 33.2 L (37.5-50.1) % Plt Count 252 (140-400) K/mcL BMP 02/01/17 06:50 Sodium 134 L Potassium 5.5 H Chloride 95 L Carbon Dioxide 20 BUN 83 H D Creatinine 8.86 H Glucose 120 H Calcium 9.0 - ABG Interpretation ABG results: ABG ABG pH 7.41 pH Units (7.32-7.45) 01/30/17 07:17 ABG pCO2 36 mmHg (35-45) 01/30/17 07:17 ABG pO2 158 mmHg (85-104) H 01/30/17 07:17 ABG O2 Saturation 99 % (95-98) H 01/30/17 07:17 PT/INR, D-dimer PT 11.0 Seconds (9.4-12.1) 01/29/17 23:07 Consult Discharge Plan - Plan Additional Instructions: Please follow up with your primary care provider regarding further management of your chronic medical conditions. Referrals: Dea Veliz, ISABELA [Partnered Physician] - (Need [facility] approval Cardiology will call patient at home with an appointment) [place],PCP [Primary Care Provider] - 02/10/17 9:45 am (this is with the red team) Prescriptions: Atorvastatin [Lipitor] 40 mg PO HS #30 tablet Carvedilol [Coreg] 12.5 mg PO BIDWM #60 tablet Clopidogrel [Plavix] 75 mg PO DAILY #30 tablet Lisinopril [Zestril] 2.5 mg PO DAILY #30 tablet <Ángel Lu - Last Filed: 02/01/17 17:52> Date of Encounter: 02/01/17 - Constitutional Vitals: Temp Pulse Resp BP Pulse Ox 98.1 F 63 18 127/77 93 02/01/17 17:00 02/01/17 11:37 02/01/17 17:00 02/01/17 17:00 02/01/17 11:37 Internal Medicine: Result - Labs CBC & Chem 7: 02/01/17 06:50 02/01/17 06:50 Labs: Short CBC 02/01/17 Range/Units 06:50 WBC 8.5 (4.3-11.1) K/mcL Hgb 10.9 L D (12.9-16.9) g/dL Hct 33.2 L (37.5-50.1) % Plt Count 252 (140-400) K/mcL BMP 02/01/17 06:50 Sodium 134 L Potassium 5.5 H Chloride 95 L Carbon Dioxide 20 BUN 83 H D Creatinine 8.86 H Glucose 120 H Calcium 9.0 - ABG Interpretation ABG results: ABG ABG pH 7.41 pH Units (7.32-7.45) 01/30/17 07:17 ABG pCO2 36 mmHg (35-45) 01/30/17 07:17 ABG pO2 158 mmHg (85-104) H 01/30/17 07:17 ABG O2 Saturation 99 % (95-98) H 01/30/17 07:17 PT/INR, D-dimer PT 11.0 Seconds (9.4-12.1) 01/29/17 23:07 - Attending Attestation I examined this patient and my medical decision-making was reviewed with the Resident Physician. I agree with the documented findings, disposition and treatment plan as described except to the extent set forth below.
[2017-02-01] MEDS: Insulin DETEMIR 100 UNIT/ML X5UNITS SQ SCH (21:32)
[2017-02-02 05:23] LABS: Hematocrit 28.8 % (37.5-50.1); Mean Corpuscular HGB Conc 32.3 g/dL (31.6-35.5); Mean Corpuscular Hemoglobin 30.4 pg (28.0-33.3); Mean Corpuscular Volume 94.1 fL (83.0-100.0); Mean Platelet Volume 10.9 fL (9.4-12.4); Platelet Count 200 K/mcL (140-400); Red Blood Count 3.06 M/mcL (4.19-5.50)
[2017-02-02 05:33] LABS: Hemoglobin 9.3 g/dL (12.9-16.9)
[2017-02-02 05:42] LABS: Calcium 8.6 mg/dL (8.6-10.8); Potassium 5.3 mEq/L (3.5-4.5)
[2017-02-02] MEDS ORDERED: Insulin DETEMIR 100 UNIT/ML X5UNITS SQ ONE (06:48)
[2017-02-02] MEDS: Insulin LISPRO 300 UNITS/3 ML VIAL SQ SCH (06:52)
[2017-02-02] MEDS: Renal Vitamin 1 MG CAPSULE PO SCH (08:21)
[2017-02-02] MEDS: Famotidine 20 MG TABLET PO SCH (08:22)
[2017-02-02] MEDS: amLODIPine 5 MG TABLET PO SCH (08:22)
[2017-02-02] MEDS: Fenofibrate 54 MG TABLET PO SCH (08:22)
[2017-02-02] MEDS: Aspirin Enteric Coated 81 MG Tablet PO SCH (08:22)
[2017-02-02 10:10] VITALS: BP 149/70
--- NOTE | 2017-02-02 10:39 | Nephrology Progress Note ---
Date of Encounter: 02/02/17 Time of Encounter: 10:20 - Assessment and Plan (1) ESRD (end stage renal disease) Current Visit: Yes Status: Chronic S/P LHC-stent, CHF/Pulmonary edema. HD tomorrow outpatient, keeping MWF schedule. Subjective Principal diagnosis: Acute respiratory failure, NSTEMI Interval history: S/P LHC-stent. Sitting up in chair, dressed, wants to go home. Objective - Vital Signs Vital signs: Vital Signs Temp Pulse Resp BP Pulse Ox 02/02/17 10:08 97.9 F 71 149/70 96 02/02/17 07:56 98.4 F 87 16 171/72 98 02/02/17 05:10 98.6 F 88 14 183/81 98 02/01/17 21:12 97.8 F 80 14 159/72 99 02/01/17 18:27 97.4 F L 74 18 97/60 99 02/01/17 17:00 98.1 F 18 127/77 02/01/17 16:50 117/58 02/01/17 16:35 125/64 02/01/17 16:20 130/70 02/01/17 16:05 121/66 02/01/17 15:50 105/60 02/01/17 15:35 99/52 02/01/17 15:20 108/63 02/01/17 15:05 99/58 02/01/17 14:50 108/59 02/01/17 14:35 116/66 02/01/17 14:20 121/62 02/01/17 14:05 142/73 02/01/17 13:50 98.1 F 18 143/68 02/01/17 11:37 97.6 F 63 16 151/74 93 Intake and Output 02/01/17 02/02/17 02/02/17 23:59 07:59 15:59 Intake Total 240 / 240 120 / 120 240 / 240 Output Total 2600 / 2600 0 / 0 Balance -2360 / -2360 120 / 120 240 / 240 Intake: Oral 240 / 240 120 / 120 240 / 240 Output: Urine 0 / 0 0 / 0 Total Dialysis (HD) Output 2600 / 2600 Other: Meal Dinner Breakfast Percent of Meal Consumed 100% 90% # Voids 2 Blood Glucose* [phone] Hemodialysis Net Fluid Removed 2000 (mL) - General Appearance General appearance: Present: well-developed, well-nourished, appears started age EENT: Present: mucous membranes moist Neck: Present: no JVD Respiratory: Present: clear Cardiology: Present: no edema, regular rate, regular rhythm Gastrointestinal: Present: normoactive bowel sounds, no tenderness Integumentary: Present: warm and dry Neurologic: Present: alert and oriented x3 Psychiatric: Present: mood/affect appropriate, cooperative - Lab 02/02/17 04:24 02/02/17 04:24 Most recent lab results ABG pH 7.41 pH Units (7.32-7.45) 01/30/17 07:17 ABG pCO2 36 mmHg (35-45) 01/30/17 07:17 ABG pO2 158 mmHg (85-104) H 01/30/17 07:17 ABG HCO3 23 mEq/L (21-27) 01/30/17 07:17 ABG O2 Saturation 99 % (95-98) H 01/30/17 07:17 Calcium 8.6 mg/dL (8.6-10.8) 02/02/17 04:24 Magnesium 2.7 mg/dL (1.6-2.6) H 01/30/17 00:30 Consult Discharge Plan - Plan Additional Instructions: Please follow up with your primary care provider regarding further management of your chronic medical conditions. Referrals: Dea Veliz, ISABELA [Partnered Physician] - (Need [facility] approval Cardiology will call patient at home with an appointment) [facility] [Primary Care Provider] - 02/10/17 9:45 am (this is with the red team) Prescriptions: Atorvastatin [Lipitor] 40 mg PO HS #30 tablet Carvedilol [Coreg] 12.5 mg PO BIDWM #60 tablet Clopidogrel [Plavix] 75 mg PO DAILY #30 tablet Lisinopril [Zestril] 2.5 mg PO DAILY #30 tablet
[2017-02-02] MEDS ORDERED: FLUARIX QUAD 2017-18 36MOS UP/PF 0.5 ML SYRINGE IM ONE (12:20)
== END 2017-02-02 13:35 | disposition home or self-care (01) | DRG 246 ==
LOC: 2ANU → 2NNU 01-31 12:00 → 3ANU 02-01 21:22
PROVIDERS: ADMIT Internal Medicine; ATTEND Internal Medicine

== ENCOUNTER 2017-05-22 10:34 | Inpatient (IN) ==
--- NOTE | 2017-05-22 11:01 | Emergency Department Note ---
Disposition Clinical Impression: Elevated troponin Anemia Qualifiers: Anemia type: due to chronic kidney disease Chronic kidney disease stage: on chronic dialysis Qualified Code(s): N18.6 - End stage renal disease Disposition: Admitted As Inpatient Condition: Good General Adult HPI - General Chief complaint: ED GI Bleed Stated complaint: abnormal labs Time Seen by Provider: 05/22/17 10:42 Source: patient Limitations: no limitations Nursing Notes Reviewed: Yes Vital Signs Reviewed: Yes - History of Present Illness HPI Narrative: Patient presents for evaluation of anemia and shortness of breath. Patient is a dialysis patient on aspirin and Plavix who presents with a hemoglobin of 5.8. The patient states that he developed a cold approximately one week ago. Patient was placed on antibiotics. Patient developed epistaxis. Patient then developed black stools. Patient has had worsening dizziness and is now having shortness of breath. The patient had dialysis today and a hemoglobin was found to be 5.8. Patient looks pale on exam. Patient was walking around the room when I first entered. Patient is not dyspneic. No increased tachypnea. Lungs are clear bilaterally. Patient will receive blood work as well as blood transfusion and admission to the hospital service. Pain Scale: 0 - Related Data Home Medications Medication Instructions Recorded Confirmed Aspirin [Lo-Dose Aspirin EC] 81 mg PO DAILY 01/29/17 05/22/17 Cinacalcet HCl [Sensipar] 60 mg PO DAILY 01/29/17 05/22/17 Insulin Glargine,Hum.rec.anlog 15 - 18 unit SQ HS 01/29/17 05/22/17 [Lantus Solostar] Renal Vitamin [Renal Caps Softgel] 1 mg PO DAILY 01/29/17 05/22/17 Sevelamer [Renvela] 2,400 mg PO TIDWM 01/29/17 05/22/17 amLODIPine [Norvasc] 5 mg PO BID 01/29/17 05/22/17 hydrALAZINE [HydrALAZINE] 25 mg PO QID 01/29/17 05/22/17 Dextrose Gel [Gluctose] 15 gm PO ONCE PRN 01/30/17 05/22/17 Glucagon,Human Recombinant 1 mg IJ AD PRN 01/30/17 05/22/17 [Glucagon Emergency Kit] Carvedilol 12.5 mg PO BID 05/22/17 05/22/17 Insulin ASPART [Novolog Flexpen] 2 - 4 unit SQ TIDWM 05/22/17 05/22/17 Lactobacillus Combination No.8 1 cap PO DAILY 05/22/17 05/22/17 [Adult Probiotic] Ranitidine HCl [Zantac] 150 mg PO DAILY 05/22/17 05/22/17 Previous Rx's Medication Instructions Recorded Atorvastatin [Lipitor] 40 mg PO HS #30 tablet 02/01/17 Clopidogrel [Plavix] 75 mg PO DAILY #30 tablet 02/01/17 Lisinopril [Zestril] 10 mg PO DAILY #30 tablet 02/02/17 Allergies Allergy/AdvReac Type Severity Reaction Status Date / Time No Known Allergies Allergy Verified 05/22/17 13:43 Review of Systems: CONSTITUTIONAL: No weight loss, fever, chills, weakness or fatigue. HEENT: Eyes: No visual changes. Ears, Nose, Throat: Nose bleeding No hearing loss, difficulty talking or unable to swallow. SKIN: No rash or itching. CARDIOVASCULAR: No chest pain, chest pressure or chest discomfort. No palpitations or edema. RESPIRATORY: Shortness of breath without cough or sputum production GASTROINTESTINAL: Black stool that has started to resolve GENITOURINARY: No burning on urination or hematuria. NEUROLOGICAL: No headache, dizziness, syncope, paralysis, ataxia, numbness or tingling in the extremities. No change in bowel or bladder control. MUSCULOSKELETAL: No muscle pain, back pain, joint pain or stiffness. Past Medical History - Past Medical History Medical history: Reports: CHF, diabetes, dialysis, hypertension, myocardial infarction, renal disease Surgical history: Reports: other (LHC, AV fistula) Psychiatric history: Reports: no psych history - Social History Smoking Status: Light tobacco smoker Smokeless Tobacco Status: No Alcohol use: Reports: none Drug use: Reports: none Physical Exam General: Well appearing, nontoxic, no acute distress Head: Normocephalic Atraumatic Eyes: PERRL, EOMI ENT: Airway patent, no stridor Neck: supple, no meningismus Chest: Lungs clear to auscultation bilateral Cardiac: Regular rate and rhythm, no murmurs, rubs or gallops Abdomen: soft, nontender, nondistended; no guarding, rebound, or tenderness to percussion Musculoskeletal: Calves symmetric, nontender, no palpable cord Skin: Pale No rash, normal skin tone Neuro: Alert and Oriented to person, place, and time; No focal deficit, CN 2-12 symmetric and intact - General Limitations: no limitations General appearance: alert Course - Reevaluation(s) Reevaluation #1: Elevated troponin likely secondary to dialysis as well and has severe anemia. Patient is receiving blood transfusion. Patient asymptomatic resting in bed. Comfortable at this time. Patient takes daily aspirin. Will admit for further transfusion and monitoring. - Consultations Consultation #1: Discussed with Dr. Sanchez. Requests discussion with ENT prior to admission. He requests that they know about the patient in case there needs to be intervention. Consultation #2: Discussed with ENT. Recommend Bactroban in the nose twice a day. Nasal saline rinses 3 times a day. They will see the patient as needed by the inpatient team. Consultation #3: Dr. Sanchez accepts for admission. Vital Signs Temperature 97.5 F L 05/22/17 10:35 Pulse Rate 96 05/22/17 10:35 Respiratory Rate 22 05/22/17 10:35 Blood Pressure 148/72 05/22/17 10:35 O2 Sat by Pulse Oximetry 97 05/22/17 10:35 Temperature 93 F L 05/24/17 10:55 Pulse Rate 93 05/24/17 10:55 Respiratory Rate 19 05/24/17 10:55 Blood Pressure 142/91 05/24/17 10:55 O2 Sat by Pulse Oximetry 88 05/24/17 10:55 Oxygen Delivery Oxygen Delivery Room Air Medical Decision Making - Medical Records Medical records reviewed: Yes I reviewed the patient's medical records. - Lab Data Lab results reviewed: Yes I reviewed the patient's lab results. Result diagrams: 05/24/17 04:30 05/24/17 04:30 Lab Results 05/22/17 05/22/17 05/22/17 Range/Units 11:02 11:02 11:02 WBC 9.7 (4.3-11.1) K/mcL RBC 1.99 L (4.19-5.50) M/mcL Hgb 6.4 L (12.9-16.9) g/dL Hct 20.7 L (37.5-50.1) % MCV 104.0 H (83.0-100.0) fL MCH 32.2 (28.0-33.3) pg MCHC 30.9 L (31.6-35.5) g/dL RDW 18.6 H (11.5-14.5) % Plt Count 268 (140-400) K/mcL MPV 10.2 (9.4-12.4) fL Immature Gran % 0.5 (0-4) % Seg Neutrophils % 81.3 % Lymphocytes % 8.4 % Monocytes % 8.0 % Eosinophils % 1.4 % Basophils % 0.4 % Neutrophils # 7.9 (1.6-8.9) K/mcL Lymphocytes # 0.8 (0.6-4.6) K/mcL Monocytes # 0.8 (0.0-1.3) K/mcL Eosinophils # 0.1 (0.0-0.6) K/mcL Basophils # 0.0 (0.0-0.2) K/mcL PT 11.3 (9.4-12.1) Seconds INR 1.1 APTT 50.7 H (26.0-36.0) Seconds Sample Site ABG pH (7.32-7.45) pH Units ABG pCO2 (35-45) mmHg ABG pO2 (85-104) mmHg ABG HCO3 (21-27) mEq/L ABG Total CO2 (20-26) mEq/L ABG O2 Saturation (95-98) % ABG Base Excess (-2 to 3) mEq/L O2 Delivery Device Inspired O2 (1-15=lpm wr62-000=%) Sodium 139 (136-145) mEq/L Potassium 3.8 (3.5-5.1) mEq/L Chloride 99 (98-107) mEq/L Carbon Dioxide 28 (23-29) mEq/L BUN 39 H (8-23) mg/dL Creatinine 4.50 H (0.70-1.30) mg/dL Est GFR ( Amer) 16 L (> 60) Est GFR (Non-Af Amer) 13 L (> 60) BUN/Creatinine Ratio 9 (6-26) Glucose 119 H (70-105) mg/dL POC Glucose (58-89) Calculated Osmolality 299 (280-300) Lactic Acid (0.5-2.2) mmol/L Calcium 9.0 (8.6-10.3) mg/dL Phosphorus (2.7-4.5) mg/dL Magnesium (1.6-2.6) mg/dL Troponin I (< 0.04) ng/mL TSH (0.340-5.600) mcIU/mL Random Cortisol mcg/dl Hep Bs Antigen (Nonreactive) Hep Bs Antibody mIU/mL Blood Type Antibody Screen Crossmatch 05/22/17 05/22/17 05/22/17 Range/Units 11:02 11:02 14:17 WBC (4.3-11.1) K/mcL RBC (4.19-5.50) M/mcL Hgb (12.9-16.9) g/dL Hct (37.5-50.1) % MCV (83.0-100.0) fL MCH (28.0-33.3) pg MCHC (31.6-35.5) g/dL RDW (11.5-14.5) % Plt Count (140-400) K/mcL MPV (9.4-12.4) fL Immature Gran % (0-4) % Seg Neutrophils % % Lymphocytes % % Monocytes % % Eosinophils % % Basophils % % Neutrophils # (1.6-8.9) K/mcL Lymphocytes # (0.6-4.6) K/mcL Monocytes # (0.0-1.3) K/mcL Eosinophils # (0.0-0.6) K/mcL Basophils # (0.0-0.2) K/mcL PT (9.4-12.1) Seconds INR APTT (26.0-36.0) Seconds Sample Site ABG pH (7.32-7.45) pH Units ABG pCO2 (35-45) mmHg ABG pO2 (85-104) mmHg ABG HCO3 (21-27) mEq/L ABG Total CO2 (20-26) mEq/L ABG O2 Saturation (95-98) % ABG Base Excess (-2 to 3) mEq/L O2 Delivery Device Inspired O2 (1-15=lpm bp78-494=%) Sodium (136-145) mEq/L Potassium (3.5-5.1) mEq/L Chloride (98-107) mEq/L Carbon Dioxide (23-29) mEq/L BUN (8-23) mg/dL Creatinine (0.70-1.30) mg/dL Est GFR ( Amer) (> 60) Est GFR (Non-Af Amer) (> 60) BUN/Creatinine Ratio (6-26) Glucose (70-105) mg/dL POC Glucose 230 H (58-89) Calculated Osmolality (280-300) Lactic Acid (0.5-2.2) mmol/L Calcium (8.6-10.3) mg/dL Phosphorus (2.7-4.5) mg/dL Magnesium (1.6-2.6) mg/dL Troponin I 0.87 H* (< 0.04) ng/mL TSH (0.340-5.600) mcIU/mL Random Cortisol mcg/dl Hep Bs Antigen (Nonreactive) Hep Bs Antibody mIU/mL Blood Type O POSITIVE Antibody Screen NEGATIVE Crossmatch See Detail 05/22/17 05/22/17 05/22/17 Range/Units 16:54 21:12 21:59 WBC (4.3-11.1) K/mcL RBC (4.19-5.50) M/mcL Hgb (12.9-16.9) g/dL Hct (37.5-50.1) % MCV (83.0-100.0) fL MCH (28.0-33.3) pg MCHC (31.6-35.5) g/dL RDW (11.5-14.5) % Plt Count (140-400) K/mcL MPV (9.4-12.4) fL Immature Gran % (0-4) % Seg Neutrophils % % Lymphocytes % % Monocytes % % Eosinophils % % Basophils % % Neutrophils # (1.6-8.9) K/mcL Lymphocytes # (0.6-4.6) K/mcL Monocytes # (0.0-1.3) K/mcL Eosinophils # (0.0-0.6) K/mcL Basophils # (0.0-0.2) K/mcL PT (9.4-12.1) Seconds INR APTT (26.0-36.0) Seconds Sample Site ABG pH (7.32-7.45) pH Units ABG pCO2 (35-45) mmHg ABG pO2 (85-104) mmHg ABG HCO3 (21-27) mEq/L ABG Total CO2 (20-26) mEq/L ABG O2 Saturation (95-98) % ABG Base Excess (-2 to 3) mEq/L O2 Delivery Device Inspired O2 (1-15=lpm wt20-583=%) Sodium (136-145) mEq/L Potassium (3.5-5.1) mEq/L Chloride (98-107) mEq/L Carbon Dioxide (23-29) mEq/L BUN (8-23) mg/dL Creatinine (0.70-1.30) mg/dL Est GFR ( Amer) (> 60) Est GFR (Non-Af Amer) (> 60) BUN/Creatinine Ratio (6-26) Glucose (70-105) mg/dL POC Glucose 253 H 108 H (58-89) Calculated Osmolality (280-300) Lactic Acid (0.5-2.2) mmol/L Calcium (8.6-10.3) mg/dL Phosphorus (2.7-4.5) mg/dL Magnesium (1.6-2.6) mg/dL Troponin I 1.00 H* (< 0.04) ng/mL TSH (0.340-5.600) mcIU/mL Random Cortisol mcg/dl Hep Bs Antigen (Nonreactive) Hep Bs Antibody mIU/mL Blood Type Antibody Screen Crossmatch 05/22/17 05/23/17 05/23/17 Range/Units 21:59 04:22 04:26 WBC (4.3-11.1) K/mcL RBC (4.19-5.50) M/mcL Hgb 8.3 L D (12.9-16.9) g/dL Hct 25.4 L (37.5-50.1) % MCV (83.0-100.0) fL MCH (28.0-33.3) pg MCHC (31.6-35.5) g/dL RDW (11.5-14.5) % Plt Count (140-400) K/mcL MPV (9.4-12.4) fL Immature Gran % (0-4) % Seg Neutrophils % % Lymphocytes % % Monocytes % % Eosinophils % % Basophils % % Neutrophils # (1.6-8.9) K/mcL Lymphocytes # (0.6-4.6) K/mcL Monocytes # (0.0-1.3) K/mcL Eosinophils # (0.0-0.6) K/mcL Basophils # (0.0-0.2) K/mcL PT (9.4-12.1) Seconds INR APTT (26.0-36.0) Seconds Sample Site ABG pH (7.32-7.45) pH Units ABG pCO2 (35-45) mmHg ABG pO2 (85-104) mmHg ABG HCO3 (21-27) mEq/L ABG Total CO2 (20-26) mEq/L ABG O2 Saturation (95-98) % ABG Base Excess (-2 to 3) mEq/L O2 Delivery Device Inspired O2 (1-15=lpm xk03-722=%) Sodium (136-145) mEq/L Potassium (3.5-5.1) mEq/L Chloride (98-107) mEq/L Carbon Dioxide (23-29) mEq/L BUN (8-23) mg/dL Creatinine (0.70-1.30) mg/dL Est GFR ( Amer) (> 60) Est GFR (Non-Af Amer) (> 60) BUN/Creatinine Ratio (6-26) Glucose (70-105) mg/dL POC Glucose 10 L* 368 H (58-89) Calculated Osmolality (280-300) Lactic Acid (0.5-2.2) mmol/L Calcium (8.6-10.3) mg/dL Phosphorus (2.7-4.5) mg/dL Magnesium (1.6-2.6) mg/dL Troponin I (< 0.04) ng/mL TSH (0.340-5.600) mcIU/mL Random Cortisol mcg/dl Hep Bs Antigen (Nonreactive) Hep Bs Antibody mIU/mL Blood Type Antibody Screen Crossmatch 05/23/17 05/23/17 05/23/17 Range/Units 04:40 04:40 04:42 WBC 12.2 H (4.3-11.1) K/mcL RBC 2.88 L (4.19-5.50) M/mcL Hgb 9.2 L (12.9-16.9) g/dL Hct 28.8 L (37.5-50.1) % MCV 100.0 (83.0-100.0) fL MCH 31.9 (28.0-33.3) pg MCHC 31.9 (31.6-35.5) g/dL RDW 19.3 H (11.5-14.5) % Plt Count 285 (140-400) K/mcL MPV 10.7 (9.4-12.4) fL Immature Gran % 0.4 (0-4) % Seg Neutrophils % 87.2 % Lymphocytes % 6.4 % Monocytes % 4.8 % Eosinophils % 0.5 % Basophils % 0.7 % Neutrophils # 10.6 H (1.6-8.9) K/mcL Lymphocytes # 0.8 (0.6-4.6) K/mcL Monocytes # 0.6 (0.0-1.3) K/mcL Eosinophils # 0.1 (0.0-0.6) K/mcL Basophils # 0.1 (0.0-0.2) K/mcL PT (9.4-12.1) Seconds INR APTT (26.0-36.0) Seconds Sample Site ABG pH (7.32-7.45) pH Units ABG pCO2 (35-45) mmHg ABG pO2 (85-104) mmHg ABG HCO3 (21-27) mEq/L ABG Total CO2 (20-26) mEq/L ABG O2 Saturation (95-98) % ABG Base Excess (-2 to 3) mEq/L O2 Delivery Device Inspired O2 (1-15=lpm ee48-027=%) Sodium 140 (136-145) mEq/L Potassium 4.6 (3.5-5.1) mEq/L Chloride 101 (98-107) mEq/L Carbon Dioxide 28 (23-29) mEq/L BUN 56 H (8-23) mg/dL Creatinine 6.05 H (0.70-1.30) mg/dL Est GFR ( Amer) 11 L (> 60) Est GFR (Non-Af Amer) 9 L (> 60) BUN/Creatinine Ratio 9 (6-26) Glucose 227 H (70-105) mg/dL POC Glucose (58-89) Calculated Osmolality 313 H (280-300) Lactic Acid (0.5-2.2) mmol/L Calcium 9.3 (8.6-10.3) mg/dL Phosphorus 6.5 H (2.7-4.5) mg/dL Magnesium 2.6 (1.6-2.6) mg/dL Troponin I 1.26 H* (< 0.04) ng/mL TSH (0.340-5.600) mcIU/mL Random Cortisol mcg/dl Hep Bs Antigen (Nonreactive) Hep Bs Antibody mIU/mL Blood Type Antibody Screen Crossmatch 05/23/17 05/23/17 05/23/17 Range/Units 04:42 04:46 04:48 WBC (4.3-11.1) K/mcL RBC (4.19-5.50) M/mcL Hgb (12.9-16.9) g/dL Hct (37.5-50.1) % MCV (83.0-100.0) fL MCH (28.0-33.3) pg MCHC (31.6-35.5) g/dL RDW (11.5-14.5) % Plt Count (140-400) K/mcL MPV (9.4-12.4) fL Immature Gran % (0-4) % Seg Neutrophils % % Lymphocytes % % Monocytes % % Eosinophils % % Basophils % % Neutrophils # (1.6-8.9) K/mcL Lymphocytes # (0.6-4.6) K/mcL Monocytes # (0.0-1.3) K/mcL Eosinophils # (0.0-0.6) K/mcL Basophils # (0.0-0.2) K/mcL PT (9.4-12.1) Seconds INR APTT (26.0-36.0) Seconds Sample Site R Radial ABG pH 7.40 (7.32-7.45) pH Units ABG pCO2 45 (35-45) mmHg ABG pO2 77 L (85-104) mmHg ABG HCO3 28 H (21-27) mEq/L ABG Total CO2 29 H (20-26) mEq/L ABG O2 Saturation 95 (95-98) % ABG Base Excess 3 (-2 to 3) mEq/L O2 Delivery Device NRB Inspired O2 15.0 (1-15=lpm un21-847=%) Sodium (136-145) mEq/L Potassium (3.5-5.1) mEq/L Chloride (98-107) mEq/L Carbon Dioxide (23-29) mEq/L BUN (8-23) mg/dL Creatinine (0.70-1.30) mg/dL Est GFR ( Amer) (> 60) Est GFR (Non-Af Amer) (> 60) BUN/Creatinine Ratio (6-26) Glucose (70-105) mg/dL POC Glucose 220 H (58-89) Calculated Osmolality (280-300) Lactic Acid 1.5 (0.5-2.2) mmol/L Calcium (8.6-10.3) mg/dL Phosphorus (2.7-4.5) mg/dL Magnesium (1.6-2.6) mg/dL Troponin I (< 0.04) ng/mL TSH (0.340-5.600) mcIU/mL Random Cortisol mcg/dl Hep Bs Antigen (Nonreactive) Hep Bs Antibody mIU/mL Blood Type Antibody Screen Crossmatch 05/23/17 05/23/17 05/23/17 Range/Units 05:34 06:07 06:19 WBC (4.3-11.1) K/mcL RBC (4.19-5.50) M/mcL Hgb (12.9-16.9) g/dL Hct (37.5-50.1) % MCV (83.0-100.0) fL MCH (28.0-33.3) pg MCHC (31.6-35.5) g/dL RDW (11.5-14.5) % Plt Count (140-400) K/mcL MPV (9.4-12.4) fL Immature Gran % (0-4) % Seg Neutrophils % % Lymphocytes % % Monocytes % % Eosinophils % % Basophils % % Neutrophils # (1.6-8.9) K/mcL Lymphocytes # (0.6-4.6) K/mcL Monocytes # (0.0-1.3) K/mcL Eosinophils # (0.0-0.6) K/mcL Basophils # (0.0-0.2) K/mcL PT (9.4-12.1) Seconds INR APTT (26.0-36.0) Seconds Sample Site ABG pH (7.32-7.45) pH Units ABG pCO2 (35-45) mmHg ABG pO2 (85-104) mmHg ABG HCO3 (21-27) mEq/L ABG Total CO2 (20-26) mEq/L ABG O2 Saturation (95-98) % ABG Base Excess (-2 to 3) mEq/L O2 Delivery Device Inspired O2 (1-15=lpm dt63-186=%) Sodium (136-145) mEq/L Potassium (3.5-5.1) mEq/L Chloride (98-107) mEq/L Carbon Dioxide (23-29) mEq/L BUN (8-23) mg/dL Creatinine (0.70-1.30) mg/dL Est GFR ( Amer) (> 60) Est GFR (Non-Af Amer) (> 60) BUN/Creatinine Ratio (6-26) Glucose (70-105) mg/dL POC Glucose 103 H 62 125 H (58-89) Calculated Osmolality (280-300) Lactic Acid (0.5-2.2) mmol/L Calcium (8.6-10.3) mg/dL Phosphorus (2.7-4.5) mg/dL Magnesium (1.6-2.6) mg/dL Troponin I (< 0.04) ng/mL TSH (0.340-5.600) mcIU/mL Random Cortisol mcg/dl Hep Bs Antigen (Nonreactive) Hep Bs Antibody mIU/mL Blood Type Antibody Screen Crossmatch 05/23/17 05/23/17 05/23/17 Range/Units 06:56 07:56 09:12 WBC (4.3-11.1) K/mcL RBC (4.19-5.50) M/mcL Hgb (12.9-16.9) g/dL Hct (37.5-50.1) % MCV (83.0-100.0) fL MCH (28.0-33.3) pg MCHC (31.6-35.5) g/dL RDW (11.5-14.5) % Plt Count (140-400) K/mcL MPV (9.4-12.4) fL Immature Gran % (0-4) % Seg Neutrophils % % Lymphocytes % % Monocytes % % Eosinophils % % Basophils % % Neutrophils # (1.6-8.9) K/mcL Lymphocytes # (0.6-4.6) K/mcL Monocytes # (0.0-1.3) K/mcL Eosinophils # (0.0-0.6) K/mcL Basophils # (0.0-0.2) K/mcL PT (9.4-12.1) Seconds INR APTT (26.0-36.0) Seconds Sample Site ABG pH (7.32-7.45) pH Units ABG pCO2 (35-45) mmHg ABG pO2 (85-104) mmHg ABG HCO3 (21-27) mEq/L ABG Total CO2 (20-26) mEq/L ABG O2 Saturation (95-98) % ABG Base Excess (-2 to 3) mEq/L O2 Delivery Device Inspired O2 (1-15=lpm ob97-785=%) Sodium (136-145) mEq/L Potassium (3.5-5.1) mEq/L Chloride (98-107) mEq/L Carbon Dioxide (23-29) mEq/L BUN (8-23) mg/dL Creatinine (0.70-1.30) mg/dL Est GFR ( Amer) (> 60) Est GFR (Non-Af Amer) (> 60) BUN/Creatinine Ratio (6-26) Glucose (70-105) mg/dL POC Glucose 95 H 90 H 61 (58-89) Calculated Osmolality (280-300) Lactic Acid (0.5-2.2) mmol/L Calcium (8.6-10.3) mg/dL Phosphorus (2.7-4.5) mg/dL Magnesium (1.6-2.6) mg/dL Troponin I (< 0.04) ng/mL TSH (0.340-5.600) mcIU/mL Random Cortisol mcg/dl Hep Bs Antigen (Nonreactive) Hep Bs Antibody mIU/mL Blood Type Antibody Screen Crossmatch 05/23/17 05/23/17 05/23/17 Range/Units 10:27 10:45 10:45 WBC (4.3-11.1) K/mcL RBC (4.19-5.50) M/mcL Hgb (12.9-16.9) g/dL Hct (37.5-50.1) % MCV (83.0-100.0) fL MCH (28.0-33.3) pg MCHC (31.6-35.5) g/dL RDW (11.5-14.5) % Plt Count (140-400) K/mcL MPV (9.4-12.4) fL Immature Gran % (0-4) % Seg Neutrophils % % Lymphocytes % % Monocytes % % Eosinophils % % Basophils % % Neutrophils # (1.6-8.9) K/mcL Lymphocytes # (0.6-4.6) K/mcL Monocytes # (0.0-1.3) K/mcL Eosinophils # (0.0-0.6) K/mcL Basophils # (0.0-0.2) K/mcL PT (9.4-12.1) Seconds INR APTT (26.0-36.0) Seconds Sample Site ABG pH (7.32-7.45) pH Units ABG pCO2 (35-45) mmHg ABG pO2 (85-104) mmHg ABG HCO3 (21-27) mEq/L ABG Total CO2 (20-26) mEq/L ABG O2 Saturation (95-98) % ABG Base Excess (-2 to 3) mEq/L O2 Delivery Device Inspired O2 (1-15=lpm qe50-581=%) Sodium (136-145) mEq/L Potassium (3.5-5.1) mEq/L Chloride (98-107) mEq/L Carbon Dioxide (23-29) mEq/L BUN (8-23) mg/dL Creatinine (0.70-1.30) mg/dL Est GFR ( Amer) (> 60) Est GFR (Non-Af Amer) (> 60) BUN/Creatinine Ratio (6-26) Glucose (70-105) mg/dL POC Glucose 131 H (58-89) Calculated Osmolality (280-300) Lactic Acid (0.5-2.2) mmol/L Calcium (8.6-10.3) mg/dL Phosphorus (2.7-4.5) mg/dL Magnesium (1.6-2.6) mg/dL Troponin I (< 0.04) ng/mL TSH 8.091 H (0.340-5.600) mcIU/mL Random Cortisol 37.8 mcg/dl Hep Bs Antigen Nonreactive (Nonreactive) Hep Bs Antibody 83.92 mIU/mL Blood Type Antibody Screen Crossmatch 05/23/17 05/23/17 05/23/17 Range/Units 10:51 11:40 12:33 WBC (4.3-11.1) K/mcL RBC (4.19-5.50) M/mcL Hgb (12.9-16.9) g/dL Hct (37.5-50.1) % MCV (83.0-100.0) fL MCH (28.0-33.3) pg MCHC (31.6-35.5) g/dL RDW (11.5-14.5) % Plt Count (140-400) K/mcL MPV (9.4-12.4) fL Immature Gran % (0-4) % Seg Neutrophils % % Lymphocytes % % Monocytes % % Eosinophils % % Basophils % % Neutrophils # (1.6-8.9) K/mcL Lymphocytes # (0.6-4.6) K/mcL Monocytes # (0.0-1.3) K/mcL Eosinophils # (0.0-0.6) K/mcL Basophils # (0.0-0.2) K/mcL PT (9.4-12.1) Seconds INR APTT (26.0-36.0) Seconds Sample Site ABG pH (7.32-7.45) pH Units ABG pCO2 (35-45) mmHg ABG pO2 (85-104) mmHg ABG HCO3 (21-27) mEq/L ABG Total CO2 (20-26) mEq/L ABG O2 Saturation (95-98) % ABG Base Excess (-2 to 3) mEq/L O2 Delivery Device Inspired O2 (1-15=lpm [id number]=%) Sodium (136-145) mEq/L Potassium (3.5-5.1) mEq/L Chloride (98-107) mEq/L Carbon Dioxide (23-29) mEq/L BUN (8-23) mg/dL Creatinine (0.70-1.30) mg/dL Est GFR ( Amer) (> 60) Est GFR (Non-Af Amer) (> 60) BUN/Creatinine Ratio (6-26) Glucose (70-105) mg/dL POC Glucose 132 H 139 H 131 H (58-89) Calculated Osmolality (280-300) Lactic Acid (0.5-2.2) mmol/L Calcium (8.6-10.3) mg/dL Phosphorus (2.7-4.5) mg/dL Magnesium (1.6-2.6) mg/dL Troponin I (< 0.04) ng/mL TSH (0.340-5.600) mcIU/mL Random Cortisol mcg/dl Hep Bs Antigen (Nonreactive) Hep Bs Antibody mIU/mL Blood Type Antibody Screen Crossmatch 05/23/17 05/23/17 05/23/17 Range/Units 14:33 15:44 18:27 WBC (4.3-11.1) K/mcL RBC (4.19-5.50) M/mcL Hgb (12.9-16.9) g/dL Hct (37.5-50.1) % MCV (83.0-100.0) fL MCH (28.0-33.3) pg MCHC (31.6-35.5) g/dL RDW (11.5-14.5) % Plt Count (140-400) K/mcL MPV (9.4-12.4) fL Immature Gran % (0-4) % Seg Neutrophils % % Lymphocytes % % Monocytes % % Eosinophils % % Basophils % % Neutrophils # (1.6-8.9) K/mcL Lymphocytes # (0.6-4.6) K/mcL Monocytes # (0.0-1.3) K/mcL Eosinophils # (0.0-0.6) K/mcL Basophils # (0.0-0.2) K/mcL PT (9.4-12.1) Seconds INR APTT (26.0-36.0) Seconds Sample Site ABG pH (7.32-7.45) pH Units ABG pCO2 (35-45) mmHg ABG pO2 (85-104) mmHg ABG HCO3 (21-27) mEq/L ABG Total CO2 (20-26) mEq/L ABG O2 Saturation (95-98) % ABG Base Excess (-2 to 3) mEq/L O2 Delivery Device Inspired O2 (1-15=lpm [id number]=%) Sodium (136-145) mEq/L Potassium (3.5-5.1) mEq/L Chloride (98-107) mEq/L Carbon Dioxide (23-29) mEq/L BUN (8-23) mg/dL Creatinine (0.70-1.30) mg/dL Est GFR ( Amer) (> 60) Est GFR (Non-Af Amer) (> 60) BUN/Creatinine Ratio (6-26) Glucose (70-105) mg/dL POC Glucose 142 H 162 H 196 H (58-89) Calculated Osmolality (280-300) Lactic Acid (0.5-2.2) mmol/L Calcium (8.6-10.3) mg/dL Phosphorus (2.7-4.5) mg/dL Magnesium (1.6-2.6) mg/dL Troponin I (< 0.04) ng/mL TSH (0.340-5.600) mcIU/mL Random Cortisol mcg/dl Hep Bs Antigen (Nonreactive) Hep Bs Antibody mIU/mL Blood Type Antibody Screen Crossmatch Critical Care Time Critical Care Time: Yes Total Critical Care Time: 25 Attestation: The high probability of a clinically significant, sudden or life threatening deterioration of the [cardiovascular] system(s) required my full and direct attention, intervention and personal management. The aggregate critical care time was [25] minutes. This time is in addition to time spent performing reported procedures but includes the following: [x] Data Review and interpretation [x] Patient assessment and monitoring of vital signs [x] Documentation [x] Medication orders and management Attestation Statement - Attestation Attestation: I examined this patient and my medical decision-making was reviewed with the Resident Physician. I agree with the documented findings, disposition and treatment plan as described except to the extent set forth below. 71 yo male presents with concerns of anemia and SOB. Pt has hx of dialysis and is on ASA and plavix. Pt received Abx within the past few weeks, developed epistaxis. Now has hgb <7 and is symptomatic. Pt has elevated trop which is likely secondary to ischemic demand. Blood ordered in ED. Pt will be admitted for further care and eval.
[2017-05-22 11:16] LABS: Basophils % 0.4 %; Eosinophils # 0.1 K/mcL (0.0-0.6); Eosinophils % 1.4 %; Hematocrit 20.7 % (37.5-50.1); Immature Granulocytes % 0.5 % (0-4); Lymphocytes # 0.8 K/mcL (0.6-4.6); Lymphocytes % 8.4 %; Mean Corpuscular HGB Conc 30.9 g/dL (31.6-35.5); Mean Corpuscular Hemoglobin 32.2 pg (28.0-33.3); Mean Platelet Volume 10.2 fL (9.4-12.4); Monocytes # 0.8 K/mcL (0.0-1.3); Neutrophils # 7.9 K/mcL (1.6-8.9); Platelet Count 268 K/mcL (140-400); Red Blood Count 1.99 M/mcL (4.19-5.50); Red Cell Distribution Width 18.6 % (11.5-14.5); Segmented Neutrophils % 81.3 %
[2017-05-22] MEDS ORDERED: 0.9 % Sodium Chloride 250 ML ONE ×2 (11:16→17:07)
[2017-05-22 11:17] LABS: INR 1.1; Prothrombin Time 11.3 Seconds (9.4-12.1)
[2017-05-22 11:20] LABS: Activated Partial Thrombo Time 50.7 Seconds (26.0-36.0)
[2017-05-22 11:23] LABS: Hemoglobin 6.4 g/dL (12.9-16.9)
[2017-05-22 11:31] LABS: Potassium 3.8 mEq/L (3.5-5.1)
--- NOTE | 2017-05-22 14:11 | Internal Med History&Physical ---
Date of Encounter: 05/22/17 Time of Encounter: 13:50 Assessment and Plan (1) Anemia Current visit: Yes Status: Acute Baseline anemia of chronic kidney disease with acute blood loss anemia from epistaxis Patient has baseline hemoglobin around 9.5 Patient reports in the same duration of time he has had upper respiratory infection, he is been having epistaxis She also reports blood running down his throat and melena He does report progressive weakness that has gotten worse in the last week Found to have hemoglobin of 5.8 at dialysis ENT was spoken to by the emergency room for advice regarding his epistaxis 2 units PRBCs ordered We will recheck hemoglobin after transfusions CBC in a.m. Nasal Bactroban twice a day Nasal saline 3 times a day We will continue patient aspirin or Plavix as he received a BAHMAN 3 months ago Qualifiers: Anemia type: due to chronic kidney disease Chronic kidney disease stage: on chronic dialysis Qualified Code(s): N18.6 - End stage renal disease; D63.1 - Anemia in chronic kidney disease; D63.1 - Anemia in chronic kidney disease; Z99.2 - Dependence on renal dialysis; Z99.2 - Dependence on renal dialysis; Z99.2 - Dependence on renal dialysis; Z99.2 - Dependence on renal dialysis (2) Cough Current visit: Yes Status: Acute Patient reports having cough productive of some sputum beginning before Valerie He had 10 day course of amoxicillin to which he reports improvement in his cough and sputum production He still reports having a cough, sitting is mostly dry currently Bibasilar crackles present We will start patient on course of Augmentin, day 1 Breathing treatments as needed Supplemental oxygen as the, wean as tolerated Cough suppression with Robitussin or Tessalon (3) Elevated troponin Current visit: Yes Status: Acute Patient found to have mild troponin elevation of 0.87 in the emergency room Elevation of troponin likely due to demand ischemia given symptomatic anemia Patient does have history of coronary artery disease with recent stent as well as CHF Patient end-stage renal disease on dialysis and has some degree of baseline troponin elevation We will trend patient troponins (4) ESRD (end stage renal disease) Current visit: No Status: Chronic Patient has end-stage renal disease on hemodialysis with AV fistula in his left arm Receives dialysis Monday, having had dialysis today His bridal sales consultant is Dr. Diana Pelayo at this time We will consult nephrology for assistance with his continued HD Renally dose medications (5) CHF (congestive heart failure) Current visit: No Status: Chronic Patient has history of CHF with last echo in 01/29 showing ejection fraction of 40-45% Not currently an exacerbation Patient received dialysis today Run blood transfusions slowly We will monitor fluid status daily Qualifiers: Congestive heart failure type: systolic Congestive heart failure chronicity : acute Qualified Code(s): I50.21 - Acute systolic (congestive) heart failure (6) IDDM (insulin dependent diabetes mellitus) Current visit: No Status: Chronic Patient has history of diabetes and takes 15 units Lantus at home daily as well as sliding scale Continue 15 units long-acting insulin Start low-dose insulin sliding scale (7) CAD (coronary artery disease) Current visit: Yes Status: Chronic Patient has history of coronary artery disease with catheterization in 01/29 Patient seen drug-eluting stent in the LAD Continue aspirin and Plavix Continue cardiac telemetry Qualifiers: Coronary Disease-Associated Artery/Lesion type: [place] artery [place] vs. transplanted heart: [place] heart Associated angina: without angina Qualified Code(s): I25.10 - Atherosclerotic heart disease of [place] coronary artery without angina pectoris (8) DVT prophylaxis Current visit: No Status: Acute We will hold chemical prophylaxis due to patient's recent epistaxis Start EPCDs Encourage ambulation Internal Medicine - H&P: HPI Chief complaint: Anemia and cough Admitted From: Home Plans for Post Hospital Care: Home History of present illness: Mr. Gallo is a 71 year old male with prior medical history of CHF (last echo showed EF 40-45%), ESRD on HD (sees Dr. Ortiz has dialysis Monday), hypertension, and CAD (with BAHMAN placed 01/29) presented to [facility] from his dialysis unit because of the finding of anemia. He was found to have hemoglobin of 5.8 dialysis today and was sent to [facility]. This is following 2 weeks of periodic epistaxis that began with a sinus/upper respiratory infection that he had been fighting. He had been given amoxicillin shortly before and taken a 10 day course, during which time all blowing his nose he would get occasional epistaxis in both naris. He reports that he was blowing out handfuls of blood over time as well as feeling blood go down the back of his throat. He denies having any nausea/vomiting, but does report melena since the epistaxis began. He states he is still coughing, since receiving the course of amoxicillin he has had much less sputum production and is breathing easier now. Past Med Surg Social Fam HX - Past Medical History Medical history: CHF, diabetes, dialysis, hypertension, myocardial infarction, renal disease Psychiatric history: no psych history - Past Surgical History Surgical History: other (LHC, AV fistula) - Social History Smoking Status: Light tobacco smoker Smokeless Tobacco Status: No Alcohol use: none Drug use: none - Family History Mother Living Status: Hx Family Cardiac Disorders: Yes Hx Family Respiratory Disorders: No Father Living Status: Hx Family Cardiac Disorders: No Hx Family Respiratory Disorders: No Brother Hx Family Cardiac Disorders: Yes Hx Family Neuromuscular Disorders: Yes Internal Medicine - H&P: Meds Aspirin [Lo-Dose Aspirin EC] 81 mg PO DAILY 01/29/17 [History] Cinacalcet HCl [Sensipar] 60 mg PO DAILY 01/29/17 [History] Insulin Glargine,Hum.rec.anlog [Lantus Solostar] 15 - 18 unit SQ HS 01/29/17 [ History] Renal Vitamin [Renal Caps Softgel] 1 mg PO DAILY 01/29/17 [History] Sevelamer [Renvela] 2,400 mg PO TIDWM 01/29/17 [History] amLODIPine [Norvasc] 5 mg PO BID 01/29/17 [History] hydrALAZINE [HydrALAZINE] 25 mg PO QID 01/29/17 [History] Dextrose Gel [Gluctose] 15 gm PO ONCE PRN 01/30/17 [History] Glucagon,Human Recombinant [Glucagon Emergency Kit] 1 mg IJ AD PRN 01/30/17 [ History] Atorvastatin [Lipitor] 40 mg PO HS #30 tablet 02/01/17 [Rx] Clopidogrel [Plavix] 75 mg PO DAILY #30 tablet 02/01/17 [Rx] Lisinopril [Zestril] 10 mg PO DAILY #30 tablet 02/02/17 [Rx] Carvedilol 12.5 mg PO BID 05/22/17 [History] Insulin ASPART [Novolog Flexpen] 2 - 4 unit SQ TIDWM 05/22/17 [History] Lactobacillus Combination No.8 [Adult Probiotic] 1 cap PO DAILY 05/22/17 [ History] Ranitidine HCl [Zantac] 150 mg PO DAILY 05/22/17 [History] 3 Allergy/AdvReac Type Severity Reaction Status Date / Time No Known Allergies Allergy Verified 05/22/17 13:43 Review of systems: Gen: Denies fever, denies chills, reports progressive worsening weakness CV: Denies chest pain, denies palpitations Resp: Reports mild shortness of breath, reports dry cough (improved overall since outpatient antibiotics) GI: Denies nausea, denies vomiting, denies abdominal pain, denies constipation, denies diarrhea, denies hematochezia, reports melena Neuro: Denies headache, denies confusion : Denies flank pain - Constitutional Vitals: Temp Pulse Resp BP Pulse Ox 98.0 F 90 20 160/77 94 05/22/17 12:34 05/22/17 13:22 05/22/17 13:22 05/22/17 13:22 05/22/17 13:22 Exam: General: Cooperative, pleasant, no acute distress, alert and oriented 4, answers questions appropriately HEENT: Normocephalic, atraumatic, Conjunctiva pink, sclera anicteric, oral mucosa moist Respiratory: No accessory muscle usage, bibasilar rales present Cardiovascular: Regular rate and rhythm, S1 and S2 present, no murmurs/rubs/ gallops/clicks appreciated GI/abdominal: Nondistended, nontender, soft, normal bowel sounds, no peritoneal signs Extremities: No calf tenderness, no pedal edema appreciated, warm, lower extremity pulses palpable and symmetrical Neurological: Alert and oriented 4, no facial droop, no focal deficits Skin: Dry, intact, normal color Internal Med - H&P Results - Labs CBC & Chem 7: 05/22/17 11:02 05/22/17 11:02
[2017-05-22] MEDS ORDERED: Ondansetron 4 MG/2 ML VIAL IVP PRN (14:12)
[2017-05-22] MEDS ORDERED: Naloxone 0.4 MG/ML INJ IVP PRN (14:12)
[2017-05-22] MEDS ORDERED: Acetaminophen 325 MG TABLET PO PRN (14:12)
[2017-05-22] MEDS ORDERED: *HR* Dextrose 50 % in Water (Syg) 50 ML SYRINGE IVP PRN (14:16)
[2017-05-22] MEDS ORDERED: D5% in Water 1,000 ML IVC PRN (14:16)
[2017-05-22] MEDS ORDERED: Dextrose Gel 15 GM/37.5 ML TUBE PO PRN ×2 (14:16)
--- NOTE | 2017-05-22 14:16 | Event Note ---
Date of Encounter: 05/22/17 Time of Encounter: 14:14 Patient seen and examined with medical chemist. Patient presents with hemoptysis that has been going on since Valerie about 2 weeks ago. He is an aspirin Plavix. 4 g hemoglobin drop. He is receiving one unit of blood. He dialyzed today. watch for signs of overload since he is getting blood off dialysis. He is not actively bleeding now. Appreciate ENT input. Give the patient Augmentin and saline nasal spray
[2017-05-22] MEDS ORDERED: Benzonatate 100 MG CAPSULE PO PRN (15:06)
[2017-05-22] MEDS ORDERED: GuaiFENesin Liq 200 MG/10 ML UDC PO PRN (15:06)
[2017-05-22] MEDS ORDERED: Ipratropium/Albuterol Neb 3 ML IH PRN (15:44)
[2017-05-22] MEDS: Insulin LISPRO 300 UNITS/3 ML VIAL SQ SCH (17:43)
[2017-05-22] MEDS: Saline Nasal Spray 44 ML BOTTLE NS SCH ×2 (17:44→20:58)
[2017-05-22] MEDS: hydrALAZINE 25 MG TABLET PO SCH ×2 (17:44→20:58)
[2017-05-22] MEDS ORDERED: Insulin DETEMIR 100 UNIT/ML X5UNITS SQ SCH (21:00)
[2017-05-22] MEDS ORDERED: Insulin LISPRO 300 UNITS/3 ML VIAL SQ SCH (21:00)
[2017-05-22] MEDS ORDERED: amLODIPine 5 MG TABLET PO SCH (21:00)
[2017-05-22 22:07] LABS: Hematocrit 25.4 % (37.5-50.1)
[2017-05-22 22:14] LABS: Hemoglobin 8.3 g/dL (12.9-16.9)
[2017-05-23] MEDS ORDERED: *HR* Dextrose 50 % in Water (Syg) 50 ML SYRINGE ONE (04:23)
[2017-05-23] MEDS ORDERED: D10% in Water 500 ML IVC ONE (04:24)
[2017-05-23] MEDS ORDERED: 0.9 % Sodium Chloride 1,000 ML ONE (04:28)
[2017-05-23] MEDS ORDERED: *HR* Dextrose 50 % in Water (Syg) 50 ML SYRINGE IVP ONE (04:32)
--- NOTE | 2017-05-23 04:46 | Event Note ---
Date of Encounter: 05/23/17 Time of Encounter: 04:42 The patient became unresponsive in the hot shot, glucose was less than 10, the patient did not regain consciousness even after administering 2 Amps of D50 , glucose was above 300 afterwards. Admitted for low hemoglobin, was transfused. Chest x-ray showed bilateral pleural effusions, pneumonia could not be ruled out Send for CT scan of the head and chest, recheck troponins is the first troponin was 0.8 and the second one was 1. Order lactic acid, ABG, consider BiPAP May start antibiotic therapy if pneumonia is confirmed on the CT scan of the chest End-stage renal disease on hemodialysis We will sent to the ICU and consider intubation for airway protection EKGs shows more pronounced ST depressions in the caitlin-lateral leads Consider starting heparin
[2017-05-23 04:51] LABS: ABG Base Excess 3 mEq/L (-2 to 3); ABG HCO3 28 mEq/L (21-27); ABG Oxygen Saturation 95 % (95-98); ABG PCO2 45 mmHg (35-45); ABG PO2 77 mmHg (85-104); ABG TCO2 29 mEq/L (20-26)
[2017-05-23 04:52] LABS: Basophils # 0.1 K/mcL (0.0-0.2); Basophils % 0.7 %; Eosinophils # 0.1 K/mcL (0.0-0.6); Eosinophils % 0.5 %; Hematocrit 28.8 % (37.5-50.1); Hemoglobin 9.2 g/dL (12.9-16.9); Immature Granulocytes % 0.4 % (0-4); Lymphocytes # 0.8 K/mcL (0.6-4.6); Lymphocytes % 6.4 %; Mean Corpuscular HGB Conc 31.9 g/dL (31.6-35.5); Mean Corpuscular Hemoglobin 31.9 pg (28.0-33.3); Mean Platelet Volume 10.7 fL (9.4-12.4); Monocytes # 0.6 K/mcL (0.0-1.3); Monocytes % 4.8 %; Neutrophils # 10.6 K/mcL (1.6-8.9); Platelet Count 285 K/mcL (140-400); Red Blood Count 2.88 M/mcL (4.19-5.50); Red Cell Distribution Width 19.3 % (11.5-14.5); Segmented Neutrophils % 87.2 %
[2017-05-23 05:17] LABS: Calcium 9.3 mg/dL (8.6-10.3); Magnesium 2.6 mg/dL (1.6-2.6); Phosphorous 6.5 mg/dL (2.7-4.5); Potassium 4.6 mEq/L (3.5-5.1)
[2017-05-23] MEDS ORDERED: Cefepime HCl 1,000 MG in D5% in Water (Mini-Bag+) 100 ML IVPB SCH (06:00)
[2017-05-23] MEDS ORDERED: Vancomycin 750 MG in D5% in Water 250 ML IVPB SCH (06:00)
[2017-05-23] MEDS ORDERED: Cefepime HCl 1,000 MG in Water for inj. (sterile) 10 ML IVP SCH (06:00)
[2017-05-23] MEDS ORDERED: Vancomycin 1,000 MG in D5% in Water 250 ML IVPB ONE (06:01)
[2017-05-23] MEDS ORDERED: Cefepime HCl 1,000 MG in Water for inj. (sterile) 20 ML 10 ML IVP SCH (07:00)
[2017-05-23] MEDS ORDERED: Cefepime HCl 1,000 MG in Water for inj. (sterile) 20 ML 10 ML IVP ONE (07:52)
--- NOTE | 2017-05-23 08:12 | Nephrology Consult Note ---
Date of Encounter: 05/23/17 Time of Encounter: 08:10 Assessment and Plan (1) ESRD (end stage renal disease) Current Visit: No Status: Chronic The patient has incisional disease in the setting of type 2 diabetes and hypertension. His last dialysis was yesterday. He was admitted with acute decrease in his hemoglobin likely representing some type of acute blood loss anemia possible GI bleeding. Apparently according to medical record the patient had been having some nosebleeds as well he did not complain of this in the outpatient dialysis unit. Currently the patient seems to have suffered an acute neurologic event following severe hypoglycemia while here in the hospital. The patient will continue to be maintained on hemodialysis every Monday. He would be prudent to obtain a neurologic consult for further evaluation of the patient's acute neurologic event. The patient's glucose will need to be monitored closely. (2) Anemia Current Visit: Yes Status: Acute Qualifiers: Anemia type: due to chronic kidney disease Chronic kidney disease stage: on chronic dialysis Qualified Code(s): N18.6 - End stage renal disease; D63.1 - Anemia in chronic kidney disease; D63.1 - Anemia in chronic kidney disease; Z99.2 - Dependence on renal dialysis; Z99.2 - Dependence on renal dialysis; Z99.2 - Dependence on renal dialysis; Z99.2 - Dependence on renal dialysis (3) Type 2 diabetes mellitus with diabetic chronic kidney disease Current Visit: Yes Status: Acute Qualifiers: Diabetes mellitus continuous churn buttermaker insulin use: with care home use Chronic kidney disease stage: on chronic dialysis Qualified Code(s): E11.22 - Type 2 diabetes mellitus with diabetic chronic kidney disease; N18.6 - End stage renal disease; N18.6 - End stage renal disease; N18.6 - End stage renal disease; N18.6 - End stage renal disease; Z79.4 - half-way (current) use of insulin; Z79.4 - half-way (current) use of insulin; Z79.4 - half-way (current) use of insulin; Z79.4 - half-way (current) use of insulin; Z99.2 - Dependence on renal dialysis; Z99.2 - Dependence on renal dialysis; Z99.2 - Dependence on renal dialysis; Z99.2 - Dependence on renal dialysis (4) Benign hypertension with end-stage renal disease Current Visit: Yes Status: Acute History of Present Illness - History of Present Illness This is a 71-year-old male who is followed as an outpatient for end-stage renal disease related to diabetes and hypertension. Patient receives dialysis every Monday in [place]. He had dialysis yesterday. Patient was sent from the dialysis unit to the emergency room because outpatient dialysis lab had come back with a hemoglobin below 7. On recheck hemoglobin was 6.4. Patient did receive blood transfusion yesterday after being admitted to the hospital. Hemoglobin is 9.2 today. Apparently the patient was found on the floor in his room at around 4 AM this morning. He was found to have a glucose level of 10. He had abnormal neurologic posturing. He has been treated with glucose replacement. He was also noted to be hypotensive as well as hypothermic. He currently has a warming blanket on. After he was found he was noted to have poor neurologic response. When I examined him this morning he is restless in bed. He is moving spontaneously but he does not respond to any verbal stimuli and he does not follow any simple commands. BiPAP mask is in place and he currently is on a D5W maintenance IV. His blood sugar is being monitored. Past Med Surg Social Fam HX - Past Medical History Medical history: CHF, diabetes, dialysis, hypertension, myocardial infarction, renal disease Psychiatric history: no psych history - Past Surgical History Surgical History: other (LHC, AV fistula) - Social History Smoking Status: Light tobacco smoker Packs per day: 1/ Smokeless Tobacco Status: No Alcohol use: none Drug use: none - Family History Mother Living Status: Hx Family Cardiac Disorders: Yes Hx Family Respiratory Disorders: No Father Living Status: Hx Family Cardiac Disorders: No Hx Family Respiratory Disorders: No Brother Hx Family Cardiac Disorders: Yes Hx Family Neuromuscular Disorders: Yes Medications and Allergies Aspirin [Lo-Dose Aspirin EC] 81 mg PO DAILY 01/29/17 [History] Cinacalcet HCl [Sensipar] 60 mg PO DAILY 01/29/17 [History] Insulin Glargine,Hum.rec.anlog [Lantus Solostar] 15 - 18 unit SQ HS 01/29/17 [ History] Renal Vitamin [Renal Caps Softgel] 1 mg PO DAILY 01/29/17 [History] Sevelamer [Renvela] 2,400 mg PO TIDWM 01/29/17 [History] amLODIPine [Norvasc] 5 mg PO BID 01/29/17 [History] hydrALAZINE [HydrALAZINE] 25 mg PO QID 01/29/17 [History] Dextrose Gel [Gluctose] 15 gm PO ONCE PRN 01/30/17 [History] Glucagon,Human Recombinant [Glucagon Emergency Kit] 1 mg IJ AD PRN 01/30/17 [ History] Atorvastatin [Lipitor] 40 mg PO HS #30 tablet 02/01/17 [Rx] Clopidogrel [Plavix] 75 mg PO DAILY #30 tablet 02/01/17 [Rx] Lisinopril [Zestril] 10 mg PO DAILY #30 tablet 02/02/17 [Rx] Carvedilol 12.5 mg PO BID 05/22/17 [History] Insulin ASPART [Novolog Flexpen] 2 - 4 unit SQ TIDWM 05/22/17 [History] Lactobacillus Combination No.8 [Adult Probiotic] 1 cap PO DAILY 05/22/17 [ History] Ranitidine HCl [Zantac] 150 mg PO DAILY 05/22/17 [History] 3 Allergy/AdvReac Type Severity Reaction Status Date / Time No Known Allergies Allergy Verified 05/22/17 13:43 Review of Systems ROS unobtainable: due to mental status Exam - Vital Signs Vital signs: Initial Vital Signs Temp Pulse Resp BP Pulse Ox 97.5 F L 96 22 148/72 97 05/22/17 10:35 05/22/17 10:35 05/22/17 10:35 05/22/17 10:35 05/22/17 10:35 Vital Signs - Last 8 Hours Temp Pulse Resp BP Pulse Ox 05/23/17 08:02 95.2 F L 05/23/17 07:11 96.5 F L 98 20 163/91 100 05/23/17 06:20 93.2 F L 91 25 140/87 100 05/23/17 06:12 22 100 05/23/17 05:14 91.5 F L 90 21 73/57 100 05/23/17 05:06 88 05/23/17 04:55 24 100 Intake and Output 05/22/17 05/23/17 05/23/17 23:59 07:59 15:59 Intake Total 668 / 668 120 / 120 Balance 120 / 120 Intake: Oral 0 / 0 120 / 120 Blood Product / Rbcs Leuko Poor As-1 Unit 350 / 350 [id number] Rbcs Leuko Poor As-1 Unit 318 / 318 [id number] Other: Meal turkey sandwich, nathanael cracker bears, goldfish Blood Glucose* 108 90 - General Appearance Exam: Patient is on BiPAP. He is on a warming blanket. Temperature is 96.5. Blood pressure 163/91. Patient is moving around in bed spontaneously. He does not follow commands nor does she respond to any verbal stimuli. Lungs coarse breath sounds. Heart regular rate and rhythm with a 2/6 talk ejection murmur. Abdomen shows normal bowel sounds. She is no guarding or rigidity. There is no lower extremity swelling. There is a functioning AV fistula in the left upper extremity. Results - Lab Results 05/23/17 04:40 05/23/17 04:42 Most recent lab results ABG pH 7.40 pH Units (7.32-7.45) 05/23/17 04:48 ABG pCO2 45 mmHg (35-45) 05/23/17 04:48 ABG pO2 77 mmHg (85-104) L 05/23/17 04:48 ABG HCO3 28 mEq/L (21-27) H 05/23/17 04:48 ABG O2 Saturation 95 % (95-98) 05/23/17 04:48 Calcium 9.3 mg/dL (8.6-10.3) 05/23/17 04:42 Phosphorus 6.5 mg/dL (2.7-4.5) H 05/23/17 04:42 Magnesium 2.6 mg/dL (1.6-2.6) 05/23/17 04:42 Consult Discharge Plan - Plan [facility]errals: [facility]Primary Care Provider[facility] -
[2017-05-23] MEDS: Insulin LISPRO 300 UNITS/3 ML VIAL SQ SCH (08:39)
[2017-05-23] MEDS ORDERED: Levofloxacin 500 MG/100 ML 500 MG/100 ML BAG IVPB SCH (09:00)
[2017-05-23] MEDS ORDERED: Famotidine 20 MG TABLET PO SCH (09:00)
--- NOTE | 2017-05-23 09:02 | Cardiology Consult Note ---
<DominicHumza smith Maricruz - Last Filed: 05/23/17 09:27> Date of Encounter: 05/23/17 Time of Encounter: 09:00 Assessment and Plan (1) Elevated troponin Current Visit: Yes Status: Acute Troponins 0.87, 1.00, 1.26 in setting of acute blood loss anemia with HGB as low as 5.8 (baseline 9.5), ESRD on dialysis, suspected neurologic event this AM , known [employer] mRCA. Demand ischemia vs. NSTEMI. Pt currently has abnormal neurologic posturing, pinpoint pupils that are nonreactive, prognosis is guarded. Palliative care consulted. Code status is DNR-CCA-DNI. Known CAD hx with NSTEMI 01/2017. LHC at that time double vessel CAD--[employer] mRCA, successful PTCA/BAHMAN to mLAD. Echo 01/2017 EF 40-45%. No heparin gtt due to blood loss anemia. Given current state/prognosis, I do not anticipate any further cardiac work-up, but will discuss with Dr. Silva. Anticipate sign off. No cardiac rehab warranted. (2) Anemia Current Visit: Yes Status: Acute Baseline ~9.5. Presented with HGB as low a 5.8, now s/p 2 unites PRBCs and HGB 9.2. Reported epistaxis over recent weeks, per . Management per primary team. Qualifiers: Anemia type: due to chronic kidney disease Chronic kidney disease stage: on chronic dialysis Qualified Code(s): N18.6 - End stage renal disease; D63.1 - Anemia in chronic kidney disease; D63.1 - Anemia in chronic kidney disease; Z99.2 - Dependence on renal dialysis; Z99.2 - Dependence on renal dialysis; Z99.2 - Dependence on renal dialysis; Z99.2 - Dependence on renal dialysis (3) CAD (coronary artery disease) Current Visit: Yes Status: Chronic S/P LHC and PCI 01/2017. Recommend continuing ASA and Plavix to prevent stent thrombosis. HGB has improved s/p transfusions. BB as BP allows. Continue Statin. Qualifiers: Coronary Disease-Associated Artery/Lesion type: cantwell artery [place] vs. transplanted heart: cantwell heart Associated angina: without angina Qualified Code(s): I25.10 - Atherosclerotic heart disease of cantwell coronary artery without angina pectoris (4) CHF (congestive heart failure) Current Visit: No Status: Chronic Known EF 40-45% 01/2017. Continue BB as BP allows. Appears euvolemic on exam, but pleural effusions on chest CT. Dialysis for fluid removal. Qualifiers: Congestive heart failure type: systolic Congestive heart failure chronicity : chronic Qualified Code(s): I50.22 - Chronic systolic (congestive) heart failure (5) ESRD (end stage renal disease) Current Visit: No Status: Chronic On dialysis. Nephrology following. Discussion w patient/family: The assessment and plan as outlined above was discussed with the patient and/or family members who expressed understanding and agreement. All questions were answered. Thank you for involving us in the care of your patient. Please call with any questions. I will discuss all the above with Dr. Silva and make changes as necessary. History of Present Illness Consult date: 05/23/17 Requesting physician: Jose Antonio Sanchez Consult reason: Elevated troponin Chief complaint: low HGB History of present illness: Mr. Gallo is a 71 year old male with PMHx significant for ESRD on HD, HTN, DMII, CAD s/p PCI 01/2017, tobacco abuse, systolic CHF EF 40-45%, that presented to [facility] yesterday after having a HGB of 5.8 at dialysis yesterday. Baseline HGB ~9.5. Since admission, pt was transfused, then pt was found unresponsive at 4AM , noted to have a glucose of 10. He had abnormal neurologic posturing. He has been treated with glucose replacement. He was also noted to be hypotensive as well as hypothermic, currently has a warming blanket on. Noted to have poor neurologic response. He is restless in bed. He is moving spontaneously but he does not respond to any verbal stimuli and he does not follow any simple commands. BiPAP mask on currently. Troponin 0.87, 1.00, 1.26. Cardiology consulted for further recommendations. Upon further questioning with , she reports the week prior to he developed a sinus infection, was put on antibiotics, and had epistaxis, but only upon blowing his nose. Reports he had been compliant with ASA and Plavix, did not complain of any chest pain recently. Pupils currently on pinpoint. Primary team explained to that prognosis is poor. Palliative care has been consulted and code status is DNR-CCA -DNI. Recent CV testing: [facility] 01/29/17: Double vessel CAD. [employer] of mRCA. Mild-moderate LV dysfunction EF 40% . Successful PTCA/BAHMAN to mLAD. Echo 01/30/17: LVEF 40-45%. Normal LV chamber size and wall thickness. Segmental left ventricular systolic dysfunction. Mild left ventricular diastolic dysfunction. Moderately dilated left atrium. Normal right ventricular structure and function. Unable to estimate RVSP due to lack of TR jet. No significant valvular dysfunction identified. Past Med Surg Social Fam HX - Past Medical History Medical history: cardiomyopathy, CHF, coronary artery disease, diabetes, dialysis, hypertension, myocardial infarction, renal disease Psychiatric history: no psych history - Past Surgical History Surgical History: angioplasty/stent, other ([facility], AV fistula) - Social History Smoking Status: Light tobacco smoker Packs per day: 05/18 Smokeless Tobacco Status: No Alcohol use: none Drug use: none - Family History Mother Living Status: Hx Family Cardiac Disorders: Yes Hx Family Respiratory Disorders: No Father Living Status: Hx Family Cardiac Disorders: No Hx Family Respiratory Disorders: No Brother Hx Family Cardiac Disorders: Yes Hx Family Neuromuscular Disorders: Yes Medications and Allergies Aspirin [Lo-Dose Aspirin EC] 81 mg PO DAILY 01/29/17 [History] Cinacalcet HCl [Sensipar] 60 mg PO DAILY 01/29/17 [History] Insulin Glargine,Hum.rec.anlog [Lantus Solostar] 15 - 18 unit SQ HS 01/29/17 [ History] Renal Vitamin [Renal Caps Softgel] 1 mg PO DAILY 01/29/17 [History] Sevelamer [Renvela] 2,400 mg PO TIDWM 01/29/17 [History] amLODIPine [Norvasc] 5 mg PO BID 01/29/17 [History] hydrALAZINE [HydrALAZINE] 25 mg PO QID 01/29/17 [History] Dextrose Gel [Gluctose] 15 gm PO ONCE PRN 01/30/17 [History] Glucagon,Human Recombinant [Glucagon Emergency Kit] 1 mg IJ AD PRN 01/30/17 [ History] Atorvastatin [Lipitor] 40 mg PO HS #30 tablet 02/01/17 [Rx] Clopidogrel [Plavix] 75 mg PO DAILY #30 tablet 02/01/17 [Rx] Lisinopril [Zestril] 10 mg PO DAILY #30 tablet 02/02/17 [Rx] Carvedilol 12.5 mg PO BID 05/22/17 [History] Insulin ASPART [Novolog Flexpen] 2 - 4 unit SQ TIDWM 05/22/17 [History] Lactobacillus Combination No.8 [Adult Probiotic] 1 cap PO DAILY 05/22/17 [ History] Ranitidine HCl [Zantac] 150 mg PO DAILY 05/22/17 [History] 3 Allergy/AdvReac Type Severity Reaction Status Date / Time No Known Allergies Allergy Verified 05/22/17 13:43 ROS unobtainable: due to mental status All Systems Review: A 10-system review of systems was performed and is negative for pertinent findings except as documented above in the HPI. Physical Examination Vital Signs, Last 4 Hours Temp Pulse Resp BP Pulse Ox 05/23/17 08:02 95.2 F L 05/23/17 07:11 96.5 F L 98 20 163/91 100 05/23/17 06:20 93.2 F L 91 25 140/87 100 05/23/17 06:12 22 100 05/23/17 05:14 91.5 F L 90 21 73/57 100 05/23/17 05:06 88 Vital Signs Temp Pulse Resp BP Pulse Ox 05/23/17 08:02 95.2 F L 05/23/17 07:11 96.5 F L 98 20 163/91 100 05/23/17 06:20 93.2 F L 91 25 140/87 100 05/23/17 06:12 22 100 05/23/17 05:14 91.5 F L 90 21 73/57 100 05/23/17 05:06 88 05/23/17 04:55 24 100 05/22/17 23:48 98.1 F 83 18 147/88 92 05/22/17 21:55 98.2 F 94 18 149/79 95 05/22/17 20:44 98.4 F 97 16 180/82 94 05/22/17 17:42 98.4 F 100 16 152/69 90 05/22/17 17:38 98.5 F 93 16 171/81 90 05/22/17 16:50 97.8 F 100 18 131/67 88 05/22/17 14:19 98.2 F 92 18 149/65 90 05/22/17 13:22 90 20 160/77 94 05/22/17 12:34 98.0 F 88 13 148/71 95 05/22/17 12:19 97.6 F 90 15 145/71 96 05/22/17 10:35 97.5 F L 96 22 148/72 97 Intake and Output 05/22/17 05/23/17 05/23/17 23:59 07:59 15:59 Intake Total 668 / 668 120 / 120 0 / 0 Output Total 0 / 0 Balance 668 / 668 120 / 120 0 / 0 Intake: Oral 0 / 0 120 / 120 0 / 0 Blood Product 668 / 668 Rbcs Leuko Poor As-1 Unit 350 / 350 [id number] Rbcs Leuko Poor As-1 Unit 318 / 318 [id number] Output: Urine 0 / 0 Urine/Stool Mix 0 / 0 Other: Meal turkey sandwich, nathanael cracker bears, goldfish Blood Glucose* 108 90 General: No Apparent Distress HEENT: Atraumatic, Normocephaly, Mucus Membranes Moist Neck: No JVD, Normal carotid pulses Cardiac: Reg Rate and Rhythm, Normal S1 and S2, No Murmur Lungs: Other (diminished) Neuro: Other (involuntary jerking movements) Abdomen: Soft, Non-Tender Skin: No rashes noted on visualized skin Musculoskeletal: No Chest Wall Tenderness Extremities: No Clubbing, No Cyanosis, No Edema, Normal Pulses Results 05/23/17 04:40 05/23/17 04:42 Lab Results 05/22/17 05/22/17 05/23/17 21:59 21:59 04:40 WBC 12.2 H Hgb 8.3 L D 9.2 L Hct 25.4 L 28.8 L Plt Count 285 Sodium Potassium Chloride Carbon Dioxide BUN Creatinine Glucose Calcium Magnesium Troponin I 1.00 H* 05/23/17 05/23/17 04:40 04:42 WBC Hgb Hct Plt Count Sodium 140 Potassium 4.6 Chloride 101 Carbon Dioxide 28 BUN 56 H Creatinine 6.05 H Glucose 227 H Calcium 9.3 Magnesium 2.6 Troponin I 1.26 H* Short CBC 05/23/17 05/23/17 05/23/17 Range/Units 04:48 04:42 04:42 WBC (4.3-11.1) K/mcL RBC (4.19-5.50) M/mcL Hgb (12.9-16.9) g/dL Hct (37.5-50.1) % MCV (83.0-100.0) fL MCH (28.0-33.3) pg MCHC (31.6-35.5) g/dL RDW (11.5-14.5) % Plt Count (140-400) K/mcL MPV (9.4-12.4) fL Immature Gran % (0-4) % Seg Neutrophils % % Lymphocytes % % Monocytes % % Eosinophils % % Basophils % % Neutrophils # (1.6-8.9) K/mcL Lymphocytes # (0.6-4.6) K/mcL Monocytes # (0.0-1.3) K/mcL Eosinophils # (0.0-0.6) K/mcL Basophils # (0.0-0.2) K/mcL PT (9.4-12.1) Seconds INR APTT (26.0-36.0) Seconds Sample Site R Radial ABG pH 7.40 (7.32-7.45) pH Units ABG pCO2 45 (35-45) mmHg ABG pO2 77 L (85-104) mmHg ABG HCO3 28 H (21-27) mEq/L ABG Total CO2 29 H (20-26) mEq/L ABG O2 Saturation 95 (95-98) % ABG Base Excess 3 (-2 to 3) mEq/L O2 Delivery Device NRB Inspired O2 15.0 (1-15=lpm nu37-120=%) Sodium 140 (136-145) mEq/L Potassium 4.6 (3.5-5.1) mEq/L Chloride 101 (98-107) mEq/L Carbon Dioxide 28 (23-29) mEq/L BUN 56 H (8-23) mg/dL Creatinine 6.05 H (0.70-1.30) mg/dL Est GFR ( Amer) 11 L (> 60) Est GFR (Non-Af Amer) 9 L (> 60) BUN/Creatinine Ratio 9 (6-26) Glucose 227 H (70-105) mg/dL POC Glucose (58-89) Calculated Osmolality 313 H (280-300) Lactic Acid 1.5 (0.5-2.2) mmol/L Calcium 9.3 (8.6-10.3) mg/dL Phosphorus 6.5 H (2.7-4.5) mg/dL Magnesium 2.6 (1.6-2.6) mg/dL Troponin I (< 0.04) ng/mL 05/23/17 05/23/17 05/22/17 Range/Units 04:40 04:40 21:59 WBC 12.2 H (4.3-11.1) K/mcL RBC 2.88 L (4.19-5.50) M/mcL Hgb 9.2 L 8.3 L D (12.9-16.9) g/dL Hct 28.8 L 25.4 L (37.5-50.1) % MCV 100.0 (83.0-100.0) fL MCH 31.9 (28.0-33.3) pg MCHC 31.9 (31.6-35.5) g/dL RDW 19.3 H (11.5-14.5) % Plt Count 285 (140-400) K/mcL MPV 10.7 (9.4-12.4) fL Immature Gran % 0.4 (0-4) % Seg Neutrophils % 87.2 % Lymphocytes % 6.4 % Monocytes % 4.8 % Eosinophils % 0.5 % Basophils % 0.7 % Neutrophils # 10.6 H (1.6-8.9) K/mcL Lymphocytes # 0.8 (0.6-4.6) K/mcL Monocytes # 0.6 (0.0-1.3) K/mcL Eosinophils # 0.1 (0.0-0.6) K/mcL Basophils # 0.1 (0.0-0.2) K/mcL PT (9.4-12.1) Seconds INR APTT (26.0-36.0) Seconds Sample Site ABG pH (7.32-7.45) pH Units ABG pCO2 (35-45) mmHg ABG pO2 (85-104) mmHg ABG HCO3 (21-27) mEq/L ABG Total CO2 (20-26) mEq/L ABG O2 Saturation (95-98) % ABG Base Excess (-2 to 3) mEq/L O2 Delivery Device Inspired O2 (1-15=lpm el37-375=%) Sodium (136-145) mEq/L Potassium (3.5-5.1) mEq/L Chloride (98-107) mEq/L Carbon Dioxide (23-29) mEq/L BUN (8-23) mg/dL Creatinine (0.70-1.30) mg/dL Est GFR ( Amer) (> 60) Est GFR (Non-Af Amer) (> 60) BUN/Creatinine Ratio (6-26) Glucose (70-105) mg/dL POC Glucose (58-89) Calculated Osmolality (280-300) Lactic Acid (0.5-2.2) mmol/L Calcium (8.6-10.3) mg/dL Phosphorus (2.7-4.5) mg/dL Magnesium (1.6-2.6) mg/dL Troponin I 1.26 H* (< 0.04) ng/mL 05/22/17 05/22/17 05/22/17 Range/Units 21:59 16:54 14:17 WBC (4.3-11.1) K/mcL RBC (4.19-5.50) M/mcL Hgb (12.9-16.9) g/dL Hct (37.5-50.1) % MCV (83.0-100.0) fL MCH (28.0-33.3) pg MCHC (31.6-35.5) g/dL RDW (11.5-14.5) % Plt Count (140-400) K/mcL MPV (9.4-12.4) fL Immature Gran % (0-4) % Seg Neutrophils % % Lymphocytes % % Monocytes % % Eosinophils % % Basophils % % Neutrophils # (1.6-8.9) K/mcL Lymphocytes # (0.6-4.6) K/mcL Monocytes # (0.0-1.3) K/mcL Eosinophils # (0.0-0.6) K/mcL Basophils # (0.0-0.2) K/mcL PT (9.4-12.1) Seconds INR APTT (26.0-36.0) Seconds Sample Site ABG pH (7.32-7.45) pH Units ABG pCO2 (35-45) mmHg ABG pO2 (85-104) mmHg ABG HCO3 (21-27) mEq/L ABG Total CO2 (20-26) mEq/L ABG O2 Saturation (95-98) % ABG Base Excess (-2 to 3) mEq/L O2 Delivery Device Inspired O2 (1-15=lpm dl56-686=%) Sodium (136-145) mEq/L Potassium (3.5-5.1) mEq/L Chloride (98-107) mEq/L Carbon Dioxide (23-29) mEq/L BUN (8-23) mg/dL Creatinine (0.70-1.30) mg/dL Est GFR ( Amer) (> 60) Est GFR (Non-Af Amer) (> 60) BUN/Creatinine Ratio (6-26) Glucose (70-105) mg/dL POC Glucose 253 H 230 H (58-89) Calculated Osmolality (280-300) Lactic Acid (0.5-2.2) mmol/L Calcium (8.6-10.3) mg/dL Phosphorus (2.7-4.5) mg/dL Magnesium (1.6-2.6) mg/dL Troponin I 1.00 H* (< 0.04) ng/mL 05/22/17 05/22/17 05/22/17 Range/Units 11:02 11:02 11:02 WBC (4.3-11.1) K/mcL RBC (4.19-5.50) M/mcL Hgb (12.9-16.9) g/dL Hct (37.5-50.1) % MCV (83.0-100.0) fL MCH (28.0-33.3) pg MCHC (31.6-35.5) g/dL RDW (11.5-14.5) % Plt Count (140-400) K/mcL MPV (9.4-12.4) fL Immature Gran % (0-4) % Seg Neutrophils % % Lymphocytes % % Monocytes % % Eosinophils % % Basophils % % Neutrophils # (1.6-8.9) K/mcL Lymphocytes # (0.6-4.6) K/mcL Monocytes # (0.0-1.3) K/mcL Eosinophils # (0.0-0.6) K/mcL Basophils # (0.0-0.2) K/mcL PT 11.3 (9.4-12.1) Seconds INR 1.1 APTT 50.7 H (26.0-36.0) Seconds Sample Site ABG pH (7.32-7.45) pH Units ABG pCO2 (35-45) mmHg ABG pO2 (85-104) mmHg ABG HCO3 (21-27) mEq/L ABG Total CO2 (20-26) mEq/L ABG O2 Saturation (95-98) % ABG Base Excess (-2 to 3) mEq/L O2 Delivery Device Inspired O2 (1-15=lpm kf19-269=%) Sodium 139 (136-145) mEq/L Potassium 3.8 (3.5-5.1) mEq/L Chloride 99 (98-107) mEq/L Carbon Dioxide 28 (23-29) mEq/L BUN 39 H (8-23) mg/dL Creatinine 4.50 H (0.70-1.30) mg/dL Est GFR ( Amer) 16 L (> 60) Est GFR (Non-Af Amer) 13 L (> 60) BUN/Creatinine Ratio 9 (6-26) Glucose 119 H (70-105) mg/dL POC Glucose (58-89) Calculated Osmolality 299 (280-300) Lactic Acid (0.5-2.2) mmol/L Calcium 9.0 (8.6-10.3) mg/dL Phosphorus (2.7-4.5) mg/dL Magnesium (1.6-2.6) mg/dL Troponin I 0.87 H* (< 0.04) ng/mL 05/22/17 Range/Units 11:02 WBC 9.7 (4.3-11.1) K/mcL RBC 1.99 L (4.19-5.50) M/mcL Hgb 6.4 L (12.9-16.9) g/dL Hct 20.7 L (37.5-50.1) % MCV 104.0 H (83.0-100.0) fL MCH 32.2 (28.0-33.3) pg MCHC 30.9 L (31.6-35.5) g/dL RDW 18.6 H (11.5-14.5) % Plt Count 268 (140-400) K/mcL MPV 10.2 (9.4-12.4) fL Immature Gran % 0.5 (0-4) % Seg Neutrophils % 81.3 % Lymphocytes % 8.4 % Monocytes % 8.0 % Eosinophils % 1.4 % Basophils % 0.4 % Neutrophils # 7.9 (1.6-8.9) K/mcL Lymphocytes # 0.8 (0.6-4.6) K/mcL Monocytes # 0.8 (0.0-1.3) K/mcL Eosinophils # 0.1 (0.0-0.6) K/mcL Basophils # 0.0 (0.0-0.2) K/mcL PT (9.4-12.1) Seconds INR APTT (26.0-36.0) Seconds Sample Site ABG pH (7.32-7.45) pH Units ABG pCO2 (35-45) mmHg ABG pO2 (85-104) mmHg ABG HCO3 (21-27) mEq/L ABG Total CO2 (20-26) mEq/L ABG O2 Saturation (95-98) % ABG Base Excess (-2 to 3) mEq/L O2 Delivery Device Inspired O2 (1-15=lpm fi84-899=%) Sodium (136-145) mEq/L Potassium (3.5-5.1) mEq/L Chloride (98-107) mEq/L Carbon Dioxide (23-29) mEq/L BUN (8-23) mg/dL Creatinine (0.70-1.30) mg/dL Est GFR ( Amer) (> 60) Est GFR (Non-Af Amer) (> 60) BUN/Creatinine Ratio (6-26) Glucose (70-105) mg/dL POC Glucose (58-89) Calculated Osmolality (280-300) Lactic Acid (0.5-2.2) mmol/L Calcium (8.6-10.3) mg/dL Phosphorus (2.7-4.5) mg/dL Magnesium (1.6-2.6) mg/dL Troponin I (< 0.04) ng/mL BMP 05/23/17 05/22/17 Range/Units 04:42 11:02 Sodium 140 139 (136-145) mEq/L Potassium 4.6 3.8 (3.5-5.1) mEq/L Chloride 101 99 (98-107) mEq/L Carbon Dioxide 28 28 (23-29) mEq/L BUN 56 H 39 H (8-23) mg/dL Creatinine 6.05 H 4.50 H (0.70-1.30) mg/dL Glucose 227 H 119 H (70-105) mg/dL Calcium 9.3 9.0 (8.6-10.3) mg/dL Cardiac Enzymes 05/23/17 05/22/17 05/22/17 Range/Units 04:40 21:59 11:02 Troponin I 1.26 H* 1.00 H* 0.87 H* (< 0.04) ng/mL Impressions Chest X-Ray 05/22/17 10:57 IMPRESSION: Small bilateral pleural effusions, right worse than left, along with mild bibasilar atelectasis or infiltrates. Mild degree of pulmonary vascular congestion without overt pulmonary edema. D/ / 05/22/2017 11:12:29 Ankit Ellison MD / [facility] Interpreting Provider: Ankit Ellison MD Head CT 05/23/17 04:30 IMPRESSION: Patient motion artifact limited exam without definite evidence for acute intracranial pathology. Paranasal sinus disease as above. D/ / 05/23/2017 07:06:59 [facility]: Ankit Ellison MD Chest CT 05/23/17 04:41 IMPRESSION: 1. Moderate bilateral pleural effusions of unclear etiology with compressive atelectasis of both lungs. 2. No convincing CT scan evidence of pneumonia. 3. Mild emphysema at the lung apices. 4. Multiple small mediastinal lymph nodes are identified, likely reactive in nature and not clearly pathologic. D/ / Portillo Duarte MD / Portillo Duarte MD Interpreting Provider: Portillo Duarte MD Active Medications Acetaminophen (Tylenol) 650 mg PO Q6HR PRN PRN Reason: Mild Pain or fever>100.4 Stop: 11/21/17 14:13 Albuterol/Ipratropium (Duoneb) 3 ml IH [id number] PRN; Protocol PRN Reason: Shortness Of Breath/Wheezing Stop: 11/21/17 15:45 Aspirin (Aspirin Ec) 81 mg PO DAILY ROSAMARIA Stop: 11/22/17 09:01 Atorvastatin Calcium (Lipitor) 40 mg PO HS ROSAMARIA Stop: 11/21/17 21:01 Last Admin: 05/22/17 20:57 Dose: 40 mg Benzonatate (Tessalon) 200 mg PO TID PRN PRN Reason: Cough Stop: 11/21/17 15:07 Carvedilol (Coreg) 12.5 mg PO BIDWM ROSAMARIA Stop: 11/21/17 21:01 Last Admin: 05/22/17 20:57 Dose: 12.5 mg Cinacalcet (Sensipar) 60 mg PO DAILY [facility] Stop: 11/22/17 09:01 Clopidogrel Bisulfate (Plavix) 75 mg PO DAILY [facility] Stop: 11/22/17 09:01 Dextrose/Water (Dextrose 50% (Syg)) 25 ml IVP AD PRN PRN Reason: Hypoglycemia Stop: 11/21/17 14:17 Docusate Sodium (Colace) 100 mg PO BID PRN PRN Reason: Constipation Stop: 11/21/17 14:13 Famotidine (Pepcid) 10 mg PO DAILY ROSAMARIA Stop: 11/22/17 09:01 Glucagon (Glucagen) 1 mg IM ONCE PRN PRN Reason: Hypoglycemia Stop: 11/21/17 14:17 Glucose (Gluctose) 15 gm PO ONCE PRN PRN Reason: Hypoglycemia Stop: 11/21/17 14:17 Glucose (Gluctose) 30 gm PO ONCE PRN PRN Reason: Hypoglycemia Stop: 11/21/17 14:17 Guaifenesin (Robitussin Liq) 200 mg PO Q6HR PRN PRN Reason: Cough Stop: 11/21/17 15:07 Hydralazine HCl (Hydralazine) 25 mg PO QID ROSAMARIA Stop: 11/21/17 17:01 Last Admin: 05/22/17 20:58 Dose: 25 mg Dextrose (Dextrose 5%) 1,000 mls @ 100 mls/hr IVC .Q10H PRN PRN Reason: HYPOGLYCEMIA Stop: 11/21/17 14:17 Last Admin: 05/23/17 05:57 Dose: 100 mls/hr Levofloxacin/Dextrose (Levaquin Premix 500mg/100ml) 500 mg in 100 mls @ 100 mls /hr IVPB Q48H ROSAMARIA PRN Reason: Protocol Stop: 11/22/17 09:01 Cefepime HCl 1,000 mg/ Sterile (Water) 10 mls @ 150 mls/hr IVP Q24H ROSAMARIA Stop: 11/23/17 18:01 Insulin Detemir (Levemir) 15 unit SQ HS [facility] Stop: 11/21/17 21:01 Last Admin: 05/22/17 21:47 Dose: 15 unit Insulin Human Lispro (Humalog) 0 units SQ HS ROSAMARIA PRN Reason: Protocol Stop: 11/21/17 21:01 Last Admin: 05/22/17 21:46 Dose: Not Given Insulin Human Lispro (Humalog) 0 units SQ TIDAC ROSAMARIA PRN Reason: Protocol Stop: 11/21/17 16:31 Last Admin: 05/23/17 08:39 Dose: Not Given Lactobacillus Acidophilus/Rhamnosus (Culturelle) 1 each PO DAILY [facility] Stop: 11/22/17 09:01 Mupirocin (Bactroban Oint) 1 appl NS BID [facility] Stop: 11/21/17 14:31 Last Admin: 05/22/17 20:58 Dose: 1 appl Naloxone HCl (Narcan) 0.4 mg IVP Q2MIN PRN PRN Reason: Opioid Reversal Stop: 11/21/17 14:13 Ondansetron HCl (Zofran) 4 mg IVP Q8HR PRN PRN Reason: Nausea And Vomiting Stop: 11/21/17 14:13 Sodium Chloride ([place] Nasal [place]) 2 spray NS TID [facility] Stop: 11/21/17 15:01 Last Admin: 05/22/17 20:58 Dose: 2 spray Vancomycin HCl (Vancocin) 0 each IVPB RPHPROT PRN PRN Reason: PULSE DOSE Stop: 11/22/17 06:04 Vitamin B Complex/Vit C/Folic Acid (Renal Caps Softgel) 1 mg PO DAILY [facility] Stop: 11/22/17 09:01 - Imaging and Cardiology Echo: report reviewed Cardiac cath: report reviewed - EKG Interpretation EKG results cardiology: personally reviewed, other (12 hr tele AVG HR 87, 3 beat run NSVT, SR with no significant pauses.) Consult Discharge Plan - Plan [facility] Provider[facility] - <ShiraLilianadelaide - Last Filed: 05/23/17 15:21> Date of Encounter: 05/23/17 - Attending Attestation I have personally performed a face to face evaluation on this patient. I have reviewed and agree with the care plan. History and Exam by me shows: 71 YOM with h/o PCI to the LAD and collaterals to an occluded RCA presents Presents with SOB and anemia post dialysis Patient found unresponsive day after with posturing and critically low glucose Will continue to follow however no plans for cardiac intervention unless troponin elevated significantly Patient does have collaterals and CKD which along with seizure activity can lead to CE release Patient would likely benefit from continuing ASA and PLavix unless contraindicated Assessment and Plan Discussion w patient/family: The assessment and plan as outlined above was discussed with the patient and/or family members who expressed understanding and agreement. All questions were answered. Thank you for involving us in the care of your patient. Please call with any questions. History of Present Illness History of present illness: Mr. Gallo is a 71 year old male All Systems Review: A 10-system review of systems was performed and is negative for pertinent findings except as documented above in the HPI. Physical Examination Vital Signs, Last 4 Hours Temp 05/23/17 14:46 98.6 F 05/23/17 12:36 97.3 F L 05/23/17 11:44 97.0 F L Results 05/23/17 04:40 05/23/17 04:42 Lab Results 05/22/17 05/22/17 05/23/17 21:59 21:59 04:40 WBC 12.2 H Hgb 8.3 L D 9.2 L Hct 25.4 L 28.8 L Plt Count 285 Sodium Potassium Chloride Carbon Dioxide BUN Creatinine Glucose Calcium Magnesium Troponin I 1.00 H* TSH 05/23/17 05/23/17 05/23/17 04:40 04:42 10:45 WBC Hgb Hct Plt Count Sodium 140 Potassium 4.6 Chloride 101 Carbon Dioxide 28 BUN 56 H Creatinine 6.05 H Glucose 227 H Calcium 9.3 Magnesium 2.6 Troponin I 1.26 H* TSH 8.091 H
[2017-05-23] MEDS: Lactobacillus 1 EACH CAP.SPRINK PO SCH (10:36)
[2017-05-23] MEDS: Aspirin Enteric Coated 81 MG Tablet PO SCH (10:36)
[2017-05-23] MEDS: Renal Vitamin 1 MG CAPSULE PO SCH (10:37)
[2017-05-23] MEDS: D10% in Water 500 ML IVC SCH ×2 (10:37→21:25)
[2017-05-23] MEDS: hydrALAZINE 25 MG TABLET PO SCH ×4 (10:37→21:27)
[2017-05-23] MEDS: Saline Nasal Spray 44 ML BOTTLE NS SCH ×3 (10:37→21:27)
--- NOTE | 2017-05-23 10:37 | Internal Med Progress Note ---
Date of Encounter: 05/23/17 Time of Encounter: 10:27 - Assessment and plan (1) Acute bronchitis Current Visit: Yes Status: Ruled-out Assessment and plan: less likely acute bronchitis; patient was recently treated for acute sinusitis, completed 7 days of oral amoxicillin. Qualifiers: Bronchitis organism: unspecified organism Qualified Code(s): J20.9 - Acute bronchitis, unspecified (2) Hypoglycemia Current Visit: Yes Status: Acute Assessment and plan: Patient has metabolic encephalopathy due to hypoglycemia. Rapid response was called last night due to finding patient on the floor, unresponsive for unknown amount of time. CT head done at that time showed no acute pathology but had motion artifacts. Patient has been on 5% dextrose drip with no significant improvement in blood sugars. Change to 10% dextrose drip to avoid volume overload due to underlying end-stage renal disease. Continue every hourly Accu- Cheks, blood sugars currently improving. Hold insulin at this time. (3) Acute encephalopathy Current Visit: Yes Status: Acute Assessment and plan: Likely metabolic due to hypoglycemia. Initial CT head as above. As the day progressed, patient became more lethargic with decreased responsiveness. CT head was repeated with no evidence of acute bleed or infarct. Neurology was consulted, most likely related to hypoglycemia. Recommend EEG. Continue telemetry monitoring, requiring supplemental oxygen via Oxymizer mask at this time. Palliative care has been consulted due to poor prognosis and decreased responsiveness. CODE STATUS has been confirmed-DNR/DNI. Continue to monitor. Plan of care discussed with patient's at bedside. (4) Acute respiratory failure with hypoxemia Current Visit: Yes Status: Acute (5) ESRD (end stage renal disease) Current Visit: Yes Status: Chronic Assessment and plan: Nephrology is on board for hemodialysis needs. Scheduled for dialysis tomorrow. (6) IDDM (insulin dependent diabetes mellitus) Current Visit: Yes Status: Chronic Assessment and plan: Plan as above. (7) Anemia Current Visit: Yes Status: Acute Assessment and plan: Presented with acute on chronic anemia related to acute blood loss secondary to epistaxis. Case has been discussed with ENT by emergency room physician, patient has been started on nasal saline spray along with mupirocin ointment. No further episodes of epistaxis. Received 2 units PRBC transfusion, hemoglobin improved and is currently stable at 9.2. Continue to monitor closely. Qualifiers: Anemia type: other cause Other causes of anemia: acute posthemorrhagic Qualified Code(s): D62 - Acute posthemorrhagic anemia (8) Elevated troponin Current Visit: Yes Status: Acute Assessment and plan: Presented with troponin leak with peak troponin at 1.26. Likely due to demand ischemia from anemia. Cardiology has been consulted, acute with current management. Hold off on anticoagulation due to current anemia. Continue aspirin and Plavix due to recent stents. (9) CAD (coronary artery disease) Current Visit: Yes Status: Chronic Assessment and plan: Received stents in January 2017. Continue aspirin, Plavix. Antihypertensives have been held initially; will use PRN IV Hydralazine for appropriate BP control; Qualifiers: Coronary Disease-Associated Artery/Lesion type: [place] artery [place] vs. transplanted heart: [place] heart Associated angina: without angina Qualified Code(s): I25.10 - Atherosclerotic heart disease of [place] coronary artery without angina pectoris - Subjective Interval history: Awake but not alert, no meaningful communication; has involuntary nonpurposeful movements in both arms; blood sugars continue to be low, recent one being 60; plan of care d/w at bedside; noted to be well until last night and then found unresponsive, noted to have hypothermia and hypoglycemia; - Constitutional Vitals: Temp Pulse Resp BP Pulse Ox 91.5 F L 90 24 139/68 95 05/23/17 09:01 05/23/17 09:01 05/23/17 09:01 05/23/17 09:01 05/23/17 09:01 General appearance: Present: A&O X 0 (uncooperative, confused). Absent: answers questions appropriately - Respiratory Respiratory exam: Present: CTAB (anterolaterally). Absent: accessory muscle use , rales, rhonchi, wheezes - Cardiovascular Cardiovascular exam: Present: RRR, +S1, +S2. Absent: diastolic murmur, gallop, rubs, systolic murmur - GI/Abdominal GI/Abdominal exam: Present: normal bowel sounds, soft, no peritoneal signs. Absent: distended, tenderness - Extremities Exam Extremities exam: Present: full ROM (involuntary movements B/L UE, arms and head ), warm, radial pulses palpable and symmetrical. Absent: calf tenderness, cyanotic, pedal edema - Neurological Exam Neurological exam: Present: altered, no focal deficits (cannot complete further exam; cannot follow commands). Absent: pronater drift, facial droop, speech deficit Internal Medicine: Result - Labs CBC & Chem 7: 05/24/17 04:30 05/24/17 04:30 Labs: Short CBC 05/22/17 05/23/17 Range/Units 21:59 04:40 WBC 12.2 H (4.3-11.1) K/mcL Hgb 8.3 L D 9.2 L (12.9-16.9) g/dL Hct 25.4 L 28.8 L (37.5-50.1) % Plt Count 285 (140-400) K/mcL Neutrophils # 10.6 H (1.6-8.9) K/mcL BMP 05/23/17 04:42 Sodium 140 Potassium 4.6 Chloride 101 Carbon Dioxide 28 BUN 56 H Creatinine 6.05 H Glucose 227 H Calcium 9.3 Cardiac Enzymes 05/22/17 05/23/17 Range/Units 21:59 04:40 Troponin I 1.00 H* 1.26 H* (< 0.04) ng/mL - ABG Interpretation ABG results: ABG ABG pH 7.40 pH Units (7.32-7.45) 05/23/17 04:48 ABG pCO2 45 mmHg (35-45) 05/23/17 04:48 ABG pO2 77 mmHg (85-104) L 05/23/17 04:48 ABG O2 Saturation 95 % (95-98) 05/23/17 04:48 PT/INR, D-dimer PT 11.3 Seconds (9.4-12.1) 05/22/17 11:02 - Impressions Impressions Head CT 05/23/17 04:30 IMPRESSION: Patient motion artifact limited exam without definite evidence for acute intracranial pathology. Paranasal sinus disease as above. D/ / 05/23/2017 07:06:59 Ankit Ellison MD / [email or web address] Interpreting Provider: Ankit Ellison MD Chest CT 05/23/17 04:41 IMPRESSION: 1. Moderate bilateral pleural effusions of unclear etiology with compressive atelectasis of both lungs. 2. No convincing CT scan evidence of pneumonia. 3. Mild emphysema at the lung apices. 4. Multiple small mediastinal lymph nodes are identified, likely reactive in nature and not clearly pathologic. D/ / Portillo Duarte MD / Portillo Duarte MD Interpreting Provider: Portillo Duarte MD Consult Discharge Plan - Plan Instructions: Anemia (GEN) Additional Instructions: F/up with PCP in 1-2 weeks F/up with HD 3 times/week- MWF F/up in ENT clinic in 1 week [facility]: [facility]Primary Care Provider[facility] - Prescriptions: Levothyroxine [Synthroid] 25 mcg PO 0630 #30 tablet Mupirocin [Bactroban Oint] 1 appl NS BID 10 Days tube Saline Nasal [place] [[place] Nasal [place]] 2 spray NS TID 10 Days bottle
--- NOTE | 2017-05-23 10:59 | Palliative - Consult Note ---
Date of Encounter: 05/23/17 Time of Encounter: 09:55 - Assessment and Plan (1) Goals of care, counseling/discussion Current Visit: Yes Status: Acute Assessment and plan: A should not already DNR CCA DNI per discussions that he has had his . On discussing with his he would absolutely not want any artificial feeding. We will await neurology's consultation. (2) Acute respiratory failure with hypoxemia Current Visit: No Status: Resolved Assessment and plan: Troponin trending upward. She has a 40-45% ejection fraction known coronary artery disease. However the patient's current neurologic status may preclude any further workup from cardiology. Patient is at least somewhat tolerating BiPAP at this time. Continue to watch. (3) ESRD (end stage renal disease) Current Visit: No Status: Chronic Assessment and plan: As of yesterday the patient was doing quite well with dialysis and would never have wanted to stop it. Events of last night will require further evaluation, and neurology has already been consulted. As of right now the plan is to continue dialysis until the neurologic problem is sorted out. (4) IDDM (insulin dependent diabetes mellitus) Current Visit: No Status: Chronic Assessment and plan: Internal medicine is watching closely as the patient has now had 2 episodes of going hypoglycemic 1 severe was noted at 4:22 this morning. (5) Acute encephalopathy Current Visit: Yes Status: Acute Assessment and plan: In all likelihood this is due to extreme hypoglycemia. Neurology has been consulted and we are awaiting results of the neurology consultation. Palliative-CN HPI - Data of Consult Patient: new to practice Requesting Physician: Ana Rosa Kay MD Primary Care Provider: [facility] - Consult Narrative Palliative Care/Comfort Measures: Palliative care Reason for consult: goals of caare History of present illness: Mr. Gallo is a 71 year old male The patient is a history of severe diabetes, and stage renal disease on dialysis Monday and Monday documented as a recent history of a nosebleed which was noticeable last Monday on blood work done for dialysis, more noticeable yesterday. The patient was sent over to the hospital after dialysis for blood transfusion. Was doing quite well at that time really not having any significant symptoms he was able to drive himself and felt that dialysis was working quite well for him. He was hospitalized yesterday to work up the bleed, was doing well at the time his left last evening. During the night the patient was found on the floor severely hypoglycemic sugar as low as 10 per fingerstick report from 0 [phone] this morning. Since that time the patient has not been communicating, doing any purposeful movement. Open his eyes to voice, however unclear if they are opening to voice or they are just opening. Her his he is clearly not himself this morning. CT scan done last night showed a great deal of artifact but otherwise was negative. Palliative care was consulted regarding options for end-of-life care if the patient does not survive this. Please see the assessment and plan CC: Ana Rosa Kay MD anemia Past Med Surg Social Fam HX - Past Medical History Medical history: cardiomyopathy, CHF, coronary artery disease, diabetes, dialysis, hypertension, myocardial infarction, renal disease Psychiatric history: no psych history - Past Surgical History Surgical History: angioplasty/stent, other (LHC, AV fistula) - Social History Smoking Status: Light tobacco smoker Packs per day: 1/ Smokeless Tobacco Status: No Alcohol use: none Drug use: none - Family History Mother Living Status: Hx Family Cardiac Disorders: Yes Hx Family Respiratory Disorders: No Father Living Status: Hx Family Cardiac Disorders: No Hx Family Respiratory Disorders: No Brother Hx Family Cardiac Disorders: Yes Hx Family Neuromuscular Disorders: Yes Medications and Allergies Aspirin [Lo-Dose Aspirin EC] 81 mg PO DAILY 01/29/17 [History] Cinacalcet HCl [Sensipar] 60 mg PO DAILY 01/29/17 [History] Insulin Glargine,Hum.rec.anlog [Lantus Solostar] 15 - 18 unit SQ HS 01/29/17 [ History] Renal Vitamin [Renal Caps Softgel] 1 mg PO DAILY 01/29/17 [History] Sevelamer [Renvela] 2,400 mg PO TIDWM 01/29/17 [History] amLODIPine [Norvasc] 5 mg PO BID 01/29/17 [History] hydrALAZINE [HydrALAZINE] 25 mg PO QID 01/29/17 [History] Dextrose Gel [Gluctose] 15 gm PO ONCE PRN 01/30/17 [History] Glucagon,Human Recombinant [Glucagon Emergency Kit] 1 mg IJ AD PRN 01/30/17 [ History] Atorvastatin [Lipitor] 40 mg PO HS #30 tablet 02/01/17 [Rx] Clopidogrel [Plavix] 75 mg PO DAILY #30 tablet 02/01/17 [Rx] Lisinopril [Zestril] 10 mg PO DAILY #30 tablet 02/02/17 [Rx] Carvedilol 12.5 mg PO BID 05/22/17 [History] Insulin ASPART [Novolog Flexpen] 2 - 4 unit SQ TIDWM 05/22/17 [History] Lactobacillus Combination No.8 [Adult Probiotic] 1 cap PO DAILY 05/22/17 [ History] Ranitidine HCl [Zantac] 150 mg PO DAILY 05/22/17 [History] 3 Allergy/AdvReac Type Severity Reaction Status Date / Time No Known Allergies Allergy Verified 05/22/17 13:43 ROS unobtainable: due to mental status Palliative Care-Exam - Constitutional Vitals: Temp Pulse Resp BP Pulse Ox 91.5 F L 90 24 139/68 95 05/23/17 09:01 05/23/17 09:01 05/23/17 09:01 05/23/17 09:01 05/23/17 09:01 General appearance: Present: no acute distress - Head Head Exam: Present: atraumatic, normal inspection - Eye Eye exam: Present: normal appearance - Neck Neck exam: Present: normal inspection - Respiratory Respiratory exam: Present: decreased breath sounds - Cardiovascular Cardiovascular exam: Present: RRR - GI/Abdominal Exam GI/Abdominal exam: Present: normal bowel sounds, soft. Absent: tenderness - Extremities Exam Extremities exam: Present: normal inspection. Absent: pedal edema, tenderness - Neurological Exam Neurological exam: Present: alert, altered, no focal deficits (The patient has no purposeful movement however he does move all extremities.). Absent: oriented X3 - Psychiatric Psychiatric exam: Present: agitated, anxious (He appears to be agitated,) - Skin Skin exam: Present: dry, warm Internal Medicine - CN: Reslt - Labs CBC & Chem 7: 05/23/17 04:40 05/23/17 04:42 Labs: Short CBC 05/22/17 05/23/17 Range/Units 21:59 04:40 WBC 12.2 H (4.3-11.1) K/mcL Hgb 8.3 L D 9.2 L (12.9-16.9) g/dL Hct 25.4 L 28.8 L (37.5-50.1) % Plt Count 285 (140-400) K/mcL Neutrophils # 10.6 H (1.6-8.9) K/mcL BMP 05/23/17 04:42 Sodium 140 Potassium 4.6 Chloride 101 Carbon Dioxide 28 BUN 56 H Creatinine 6.05 H Glucose 227 H Calcium 9.3 Cardiac Enzymes 05/22/17 05/23/17 Range/Units 21:59 04:40 Troponin I 1.00 H* 1.26 H* (< 0.04) ng/mL - ABG Interpretation ABG results: ABG ABG pH 7.40 pH Units (7.32-7.45) 05/23/17 04:48 ABG pCO2 45 mmHg (35-45) 05/23/17 04:48 ABG pO2 77 mmHg (85-104) L 05/23/17 04:48 ABG O2 Saturation 95 % (95-98) 05/23/17 04:48 PT/INR, D-dimer PT 11.3 Seconds (9.4-12.1) 05/22/17 11:02 - Impressions Impressions Head CT 05/23/17 04:30 IMPRESSION: Patient motion artifact limited exam without definite evidence for acute intracranial pathology. Paranasal sinus disease as above. D/ / 05/23/2017 07:06:59 Ankit Ellison MD / ryanne Interpreting Provider: Ankit Ellison MD Chest CT 05/23/17 04:41 IMPRESSION: 1. Moderate bilateral pleural effusions of unclear etiology with compressive atelectasis of both lungs. 2. No convincing CT scan evidence of pneumonia. 3. Mild emphysema at the lung apices. 4. Multiple small mediastinal lymph nodes are identified, likely reactive in nature and not clearly pathologic. D/ / Portillo Duarte MD / Portillo Duarte MD Interpreting Provider: Portillo Duarte MD Consult Discharge Plan - Plan [facility]errals: [facility] [Primary Care Provider] - Palliative Quality Palliative Quality: Screen for Code Status: Yes, Screen for Goals of Care: Yes, Screen for Pain: Yes, If Pain Regimen Started, Initiate Bowel Regimen: Yes, Screen for Nausea/Vomitting: Yes Code Status: 05/22/17 14:12 Resuscitation Status: Active [RES] Routine Comment: Resuscitation Status: [id number]
[2017-05-23 11:39] LABS: Thyroid Stimulating Hormone 8.091 mcIU/mL (0.340-5.600)
--- NOTE | 2017-05-23 13:15 | Neurology - Consult Note ---
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 Patient's reports that prior to this episode this morning, patient was fully functional, was able to drive and take care of himself. CT head: poor study due to motion, but no evidence of acute process. patient was found unresponsive this morning for an unknown duration of time. unsure at this time whether this is reversible or not. However, given his multiple co-morbidities, full recovery is unlikely. Plan: appreciate palliative consult repeat CT head pending EEG pending Further recs pending EEG Qualifiers: Encounter type: initial encounter Loss of consciousness presence/duration: without LOC Qualified Code(s): S06.9X0A - Unspecified intracranial injury without loss of consciousness, initial encounter History of Present Illness Chief complaint: hypoglycemic brain injury HPI: Mr. Gallo is a 71 year old male with PMHx of CHF, ESRD on HD MWF, HTN, CAD with last BAHMAN placed in January. Patient was sent to [facility] from dialysis due to anemia with Hg of 5.8. He was transfused two units of blood. Patient also complained of epistaxis and melena as well. Earlier this morning, patient was found unresponsive. It was unknown how long he was unresponsive for. His blood glucose was less than 10. Ever since then, patient has had altered mental status. He has periods of time when he has random unprovoked movements, and occasionally responds to voice. was at bedside. palliative care team has been consulted and is on board. Patient is unable to give history due to altered mental status, and ROS was unobtainable. Past Med Surg Social Fam HX - Past Medical History Medical history: cardiomyopathy, CHF, coronary artery disease, diabetes, dialysis, hypertension, myocardial infarction, renal disease Psychiatric history: no psych history - Past Surgical History Surgical History: angioplasty/stent, other (LHC, AV fistula) - Social History Smoking Status: Light tobacco smoker Packs per day: 1/4 Smokeless Tobacco Status: No Alcohol use: none Drug use: none - Family History Mother Living Status: Hx Family Cardiac Disorders: Yes Hx Family Respiratory Disorders: No Father Living Status: Hx Family Cardiac Disorders: No Hx Family Respiratory Disorders: No Brother Hx Family Cardiac Disorders: Yes Hx Family Neuromuscular Disorders: Yes Medications and Allergies Aspirin [Lo-Dose Aspirin EC] 81 mg PO DAILY 01/29/17 [History] Cinacalcet HCl [Sensipar] 60 mg PO DAILY 01/29/17 [History] Insulin Glargine,Hum.rec.anlog [Lantus Solostar] 15 - 18 unit SQ HS 01/29/17 [ History] Renal Vitamin [Renal Caps Softgel] 1 mg PO DAILY 01/29/17 [History] Sevelamer [Renvela] 2,400 mg PO TIDWM 01/29/17 [History] amLODIPine [Norvasc] 5 mg PO BID 01/29/17 [History] hydrALAZINE [HydrALAZINE] 25 mg PO QID 01/29/17 [History] Dextrose Gel [Gluctose] 15 gm PO ONCE PRN 01/30/17 [History] Glucagon,Human Recombinant [Glucagon Emergency Kit] 1 mg IJ AD PRN 01/30/17 [ History] Atorvastatin [Lipitor] 40 mg PO HS #30 tablet 02/01/17 [Rx] Clopidogrel [Plavix] 75 mg PO DAILY #30 tablet 02/01/17 [Rx] Lisinopril [Zestril] 10 mg PO DAILY #30 tablet 02/02/17 [Rx] Carvedilol 12.5 mg PO BID 05/22/17 [History] Insulin ASPART [Novolog Flexpen] 2 - 4 unit SQ TIDWM 05/22/17 [History] Lactobacillus Combination No.8 [Adult Probiotic] 1 cap PO DAILY 05/22/17 [ History] Ranitidine HCl [Zantac] 150 mg PO DAILY 05/22/17 [History] 3 Allergy/AdvReac Type Severity Reaction Status Date / Time No Known Allergies Allergy Verified 05/22/17 13:43 ROS unobtainable: due to mental status All Systems: A 10-system review of systems was performed and is negative for pertinent findings except as documented above in the HPI. Physical Examination - Vital Signs Vital Signs: Initial Vital Signs Temp Pulse Resp BP Pulse Ox 97.5 F L 96 22 148/72 97 05/22/17 10:35 05/22/17 10:35 05/22/17 10:35 05/22/17 10:35 05/22/17 10:35 - Constitutional General appearance: other (patient is intermittently alert, occasionally responds to commands, has unprvoked, random movements of all four extremities. He does not answer questions. Pupils are unreactive to light. +2 brachioradialis , patellar, achilles reflexes present. No response to painful stimuli. Was not elida to assess strenth and gait.) - Neurologic Reflexes: Brachioradialis: 2+, Patella: 2+, Achilles: 2+ Mental Status Examination: awake, alert (intermittently alert) Results - Laboratory Findings CBC and BMP: 05/23/17 04:40 05/23/17 04:42 Abnormal lab findings: Abnormal lab results WBC 12.2 K/mcL (4.3-11.1) H 05/23/17 04:40 RBC 2.88 M/mcL (4.19-5.50) L 05/23/17 04:40 Hgb 9.2 g/dL (12.9-16.9) L 05/23/17 04:40 Hct 28.8 % (37.5-50.1) L 05/23/17 04:40 RDW 19.3 % (11.5-14.5) H 05/23/17 04:40 Neutrophils # 10.6 K/mcL (1.6-8.9) H 05/23/17 04:40 APTT 50.7 Seconds (26.0-36.0) H 05/22/17 11:02 ABG pO2 77 mmHg (85-104) L 05/23/17 04:48 ABG HCO3 28 mEq/L (21-27) H 05/23/17 04:48 ABG Total CO2 29 mEq/L (20-26) H 05/23/17 04:48 BUN 56 mg/dL (8-23) H 05/23/17 04:42 Creatinine 6.05 mg/dL (0.70-1.30) H 05/23/17 04:42 Est GFR ( Amer) 11 (> 60) L 05/23/17 04:42 Est GFR (Non-Af Amer) 9 (> 60) L 05/23/17 04:42 Glucose 227 mg/dL (70-105) H 05/23/17 04:42 POC Glucose 90 (58-89) H 05/23/17 07:56 Calculated Osmolality 313 (280-300) H 05/23/17 04:42 Phosphorus 6.5 mg/dL (2.7-4.5) H 05/23/17 04:42 Troponin I 1.26 ng/mL (< 0.04) H* 05/23/17 04:40 TSH 8.091 mcIU/mL (0.340-5.600) H 05/23/17 10:45 Consult Discharge Plan - Plan [facility]errals: [facility]Primary Care Provider[facility] - <Albert Chino - Last Filed: 05/23/17 15:20> Date of Encounter: 05/23/17 Time of Encounter: 15:10 Assessment and Plan (1) Acute metabolic encephalopathy due to hypoglycemia Current Visit: Yes Status: Acute My primary suspicion is that we have a case year of acute metabolic encephalopathy secondary to profound hypoglycemia. The outcome depends primarily on the time frame for which the individual was hypoglycemic. He had a serum glucose level of 10 dL which is profoundly low. However I am encouraged that he is already beginning to show signs of improvement. Upon my entering the room he aroused to voice and light tactile stimulation, made eye contact, attempted to multiple verbal responses to my questions. He also follow several simple commands. He was not doing any of that earlier today apparently he was moving about perhaps choreiform movements not making any eye contact not following commands. Since his motor vehicle is been given glucagon as well as D10. Initial CT scan of the brain was distorted by motion artifact. Another CAT scan of the brain is pending, EEG is pending. Further assessment and prognostication following the morning. At this point additional orders from neurology and necessary. I will defer medical management to the hospitalist team. History of Present Illness HPI: Mr. Gallo is a 71 year old male is seen for neurologic consultation secondary to decreased levels of consciousness. The chart was reviewed, case was discussed with the neurology resident. The patient was seen and examined independently I concur with her assessment and historical content as transcribed above. All Systems: A 10-system review of systems was performed and is negative for pertinent findings except as documented above in the HPI. Physical Examination - Vital Signs Vital Signs: Initial Vital Signs Temp Pulse Resp BP Pulse Ox 97.5 F L 96 22 148/72 97 05/22/17 10:35 05/22/17 10:35 05/22/17 10:35 05/22/17 10:35 05/22/17 10:35 - Exam Exam: Neurologic examination was performed and finds the following. Cerebral functions-patient was sleeping soundly upon my entering the room. He aroused to voice and light tactile stimulation. He did not fully awake and however he did make eye contact he did attempt to multiple verbal responses. He was able to follow several simple commands; such as wiggling the toes and gripping bilaterally. However he remained somnolent and did not fully arouse. Motor exam-there are no involuntary movements identified at this time. Again he does not seem to have any focal or lateralized deficits. I am unable to complete a full traditional neurologic strength assessment. DTRs-triple flexion responses were present bilaterally. No posturing is present. Results - Laboratory Findings CBC and BMP: 05/23/17 04:40 05/23/17 04:42 Abnormal lab findings: Abnormal lab results WBC 12.2 K/mcL (4.3-11.1) H 05/23/17 04:40 RBC 2.88 M/mcL (4.19-5.50) L 05/23/17 04:40 Hgb 9.2 g/dL (12.9-16.9) L 05/23/17 04:40 Hct 28.8 % (37.5-50.1) L 05/23/17 04:40 RDW 19.3 % (11.5-14.5) H 05/23/17 04:40 Neutrophils # 10.6 K/mcL (1.6-8.9) H 05/23/17 04:40 APTT 50.7 Seconds (26.0-36.0) H 05/22/17 11:02 ABG pO2 77 mmHg (85-104) L 05/23/17 04:48 ABG HCO3 28 mEq/L (21-27) H 05/23/17 04:48 ABG Total CO2 29 mEq/L (20-26) H 05/23/17 04:48 BUN 56 mg/dL (8-23) H 05/23/17 04:42 Creatinine 6.05 mg/dL (0.70-1.30) H 05/23/17 04:42 Est GFR ( Amer) 11 (> 60) L 05/23/17 04:42 Est GFR (Non-Af Amer) 9 (> 60) L 05/23/17 04:42 Glucose 227 mg/dL (70-105) H 05/23/17 04:42 POC Glucose 90 (58-89) H 05/23/17 07:56 Calculated Osmolality 313 (280-300) H 05/23/17 04:42 Phosphorus 6.5 mg/dL (2.7-4.5) H 05/23/17 04:42 Troponin I 1.26 ng/mL (< 0.04) H* 05/23/17 04:40 TSH 8.091 mcIU/mL (0.340-5.600) H 05/23/17 10:45
[2017-05-23 16:36] LABS: Hepatitis B Surface Antigen Nonreactive (Nonreactive)
--- NOTE | 2017-05-23 20:06 | Electrocardiograph Report ---
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
--- NOTE | 2017-05-23 20:21 | Electrocardiograph Report ---
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
[2017-05-24] MEDS: D10% in Water 500 ML IVC SCH (04:35)
[2017-05-24 05:39] LABS: Basophils # 0.1 K/mcL (0.0-0.2); Basophils % 0.5 %; Eosinophils % 0.2 %; Hematocrit 24.7 % (37.5-50.1); Hemoglobin 7.8 g/dL (12.9-16.9); Immature Granulocytes % 0.4 % (0-4); Lymphocytes # 0.9 K/mcL (0.6-4.6); Lymphocytes % 8.8 %; Mean Corpuscular HGB Conc 31.6 g/dL (31.6-35.5); Mean Corpuscular Hemoglobin 31.7 pg (28.0-33.3); Mean Corpuscular Volume 100.4 fL (83.0-100.0); Mean Platelet Volume 11.2 fL (9.4-12.4); Monocytes # 0.9 K/mcL (0.0-1.3); Monocytes % 8.8 %; Neutrophils # 7.9 K/mcL (1.6-8.9); Platelet Count 216 K/mcL (140-400); Red Blood Count 2.46 M/mcL (4.19-5.50); Red Cell Distribution Width 19.9 % (11.5-14.5); Segmented Neutrophils % 81.3 %
[2017-05-24 06:07] LABS: Albumin 3.1 g/dL (3.5-5.7); Albumin/Globulin Ratio 1.2 (1.1-2.2); Bilirubin,Total 0.4 mg/dL (0.3-1.0); Calcium 9.3 mg/dL (8.6-10.3); Globulin 2.5 g/dL (2.4-3.5); Potassium 5.2 mEq/L (3.5-5.1); Total Protein 5.6 g/dL (6.4-8.9)
--- NOTE | 2017-05-24 07:49 | Palliative Progress Note ---
Date of Encounter: 05/24/17 Time of Encounter: 07:15 - Assessment and plan (1) Goals of care, counseling/discussion Current Visit: Yes Status: Acute Assessment and plan: Patient DNR CCA DNI by prior discussions with . Patient's goals of care to return home. The patient is doing so well, is clear that he will continue current therapies and there is no need for any further discussion of for care only as the patient would not want to continue aggressive care. Palliative we will sign off (2) Acute respiratory failure with hypoxemia Current Visit: No Status: Resolved Assessment and plan: This has resolved patient is doing fine on just 2 L of oxygen, even when he takes it off his oxygen saturations stay 91-93%. (3) ESRD (end stage renal disease) Current Visit: No Status: Chronic Assessment and plan: The patient should be due for dialysis today. (4) IDDM (insulin dependent diabetes mellitus) Current Visit: No Status: Chronic Assessment and plan: Per discussion with hospitalist, apparently his blood sugars live around 200. Any dropping of them below 200 will result in the patient having a precipitous drop. Recommend the patient wears a medic alert bracelet to that effect. (5) Acute encephalopathy Current Visit: Yes Status: Acute Assessment and plan: Secondary to acute glycemia. The patient appears to have completely recovered. Await further evaluation from neurology. - Time Spent With Patient Total time spent is greater than 50% in coordination of care (as documented) at patient's floor/unit and/or counseling patient: - Subjective Interval history: The patient is awake and alert this morning while extremities eating and drinking normally speaking normally and full sentences and answering questions appropriately. She was doing all this on just 2 L of oxygen after taking the oxygen off continues to sat 91-93%. Patient has absolutely no recollection of yesterday. - Constitutional Vitals: Abnormal lab results RBC 2.46 M/mcL (4.19-5.50) L 05/24/17 04:30 Hgb 7.8 g/dL (12.9-16.9) L 05/24/17 04:30 Hct 24.7 % (37.5-50.1) L 05/24/17 04:30 MCV 100.4 fL (83.0-100.0) H 05/24/17 04:30 RDW 19.9 % (11.5-14.5) H 05/24/17 04:30 APTT 50.7 Seconds (26.0-36.0) H 05/22/17 11:02 ABG pO2 77 mmHg (85-104) L 05/23/17 04:48 ABG HCO3 28 mEq/L (21-27) H 05/23/17 04:48 ABG Total CO2 29 mEq/L (20-26) H 05/23/17 04:48 Potassium 5.2 mEq/L (3.5-5.1) H 05/24/17 04:30 Chloride 97 mEq/L (98-107) L 05/24/17 04:30 Carbon Dioxide 17 mEq/L (23-29) L 05/24/17 04:30 BUN 72 mg/dL (8-23) H 05/24/17 04:30 Creatinine 7.52 mg/dL (0.70-1.30) H 05/24/17 04:30 Est GFR ( Amer) 9 (> 60) L 05/24/17 04:30 Est GFR (Non-Af Amer) 7 (> 60) L 05/24/17 04:30 Glucose 349 mg/dL (70-105) H 05/24/17 04:30 POC Glucose 238 (58-89) H 05/24/17 00:08 Calculated Osmolality 317 (280-300) H 05/24/17 04:30 Phosphorus 6.5 mg/dL (2.7-4.5) H 05/23/17 04:42 Troponin I 1.26 ng/mL (< 0.04) H* 05/23/17 04:40 Serum Total Protein 5.6 g/dL (6.4-8.9) L 05/24/17 04:30 Albumin 3.1 g/dL (3.5-5.7) L 05/24/17 04:30 TSH 8.091 mcIU/mL (0.340-5.600) H 05/23/17 10:45 General appearance: Present: no acute distress - Head Head exam: Present: atraumatic, normal inspection - Eye Eye exam: Present: normal appearance - ENT ENT exam: Present: mucous membranes moist - Respiratory Respiratory exam: Present: CTAB - Cardiovascular Cardiovascular exam: Present: RRR - GI/Abdominal GI/Abdominal exam: Present: normal bowel sounds, soft. Absent: tenderness - Extremities Exam Extremities exam: Present: normal inspection. Absent: pedal edema, tenderness - Neurological Exam Neurological exam: Present: alert, oriented X3, no focal deficits, strengths equal and symetr throughout. Absent: facial droop, speech deficit - Psychiatric Psychiatric exam: Absent: agitated, anxious - Skin Skin exam: Present: dry, warm Palliative Quality Palliative Quality: Screen for Code Status: Yes, Screen for Goals of Care: Yes, Screen for Pain: Yes, If Pain Regimen Started, Initiate Bowel Regimen: Yes, Screen for Nausea/Vomitting: Yes - Labs CBC & Chem 7: 05/24/17 04:30 05/24/17 04:30 Labs: Laboratory Results - last 24 hr 05/23/17 05/24/17 05/24/17 21:23 00:08 04:30 WBC RBC Hgb Hct MCV MCH MCHC RDW Plt Count MPV Immature Gran % Seg Neutrophils % Lymphocytes % Monocytes % Eosinophils % Basophils % Neutrophils # Lymphocytes # Monocytes # Eosinophils # Basophils # Sodium Potassium Chloride Carbon Dioxide BUN Creatinine Est GFR ( Amer) Est GFR (Non-Af Amer) BUN/Creatinine Ratio Glucose POC Glucose 221 H 238 H Calculated Osmolality Calcium Magnesium Total Bilirubin AST ALT Alkaline Phosphatase Serum Total Protein Albumin Globulin Albumin/Globulin Ratio Vancomycin Trough 19.1 05/24/17 05/24/17 05/24/17 04:30 04:30 04:30 WBC 9.7 RBC 2.46 L Hgb 7.8 L Hct 24.7 L MCV 100.4 H MCH 31.7 MCHC 31.6 RDW 19.9 H Plt Count 216 MPV 11.2 Immature Gran % 0.4 Seg Neutrophils % 81.3 Lymphocytes % 8.8 Monocytes % 8.8 Eosinophils % 0.2 Basophils % 0.5 Neutrophils # 7.9 Lymphocytes # 0.9 Monocytes # 0.9 Eosinophils # 0.0 Basophils # 0.1 Sodium 136 Potassium 5.2 H Chloride 97 L Carbon Dioxide 17 L BUN 72 H Creatinine 7.52 H Est GFR ( Amer) 9 L Est GFR (Non-Af Amer) 7 L BUN/Creatinine Ratio 10 Glucose 349 H POC Glucose Calculated Osmolality 317 H Calcium 9.3 Magnesium 2.4 Total Bilirubin 0.4 AST 35 ALT 23 Alkaline Phosphatase 97 Serum Total Protein 5.6 L Albumin 3.1 L Globulin 2.5 Albumin/Globulin Ratio 1.2 Vancomycin Trough - ABG Interpretation ABG results: ABG ABG pH 7.40 pH Units (7.32-7.45) 05/23/17 04:48 ABG pCO2 45 mmHg (35-45) 05/23/17 04:48 ABG pO2 77 mmHg (85-104) L 05/23/17 04:48 ABG O2 Saturation 95 % (95-98) 05/23/17 04:48 PT/INR, D-dimer PT 11.3 Seconds (9.4-12.1) 05/22/17 11:02 Consult Discharge Plan - Plan [facility]errals: [facility] [Primary Care Provider] -
[2017-05-24] MEDS ORDERED: 0.9 % Sodium Chloride 250 ML IVC PRN (08:34)
--- NOTE | 2017-05-24 08:34 | Nephrology Progress Note ---
Date of Encounter: 05/24/17 Time of Encounter: 08:32 - Assessment and Plan (1) ESRD (end stage renal disease) Current Visit: No Status: Chronic The patient will undergo dialysis today on a 2K bath without any heparin. His hemoglobin is decreased and will require further monitoring. He will need a GI evaluation. He appears to be debilitated and likely will require ECF admission following hospital discharge. 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: with fpc use Chronic kidney disease stage: on chronic dialysis Qualified Code(s): E11.22 - Type 2 diabetes mellitus with diabetic chronic kidney disease; N18.6 - End stage renal disease; Z99.2 - Dependence on renal dialysis; Z99.2 - Dependence on renal dialysis; Z99.2 - Dependence on renal dialysis; N18.6 - End stage renal disease ; N18.6 - End stage renal disease; N18.6 - End stage renal disease; Z79.4 - termite control servicer (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 He is able to answer questions and follow simple commands and appears to be alert and oriented. He will undergo his usual dialysis today. His hemoglobin is gone from 9.2 back down to 7.8. Objective - Vital Signs Vital signs: Vital Signs Temp Pulse Resp BP Pulse Ox 05/24/17 07:34 98.8 F 89 18 140/64 91 05/24/17 04:55 98.3 F 90 15 120/66 95 05/24/17 03:55 18 93 05/24/17 00:06 98.6 F 89 16 134/78 94 05/23/17 20:16 23 99 05/23/17 19:46 98 F 94 18 119/69 Intake and Output 05/23/17 05/24/17 05/24/17 23:59 07:59 15:59 Output Total 0 / 0 0 / 0 Balance 0 / 0 0 / 0 Output: Urine 0 / 0 0 / 0 Other: Stool Size Moderate Stool Consistency formed Stool Color Brown # Voids 1 Weight 60.8 kg Blood Glucose* 221 419 Patient Weight 05/24/17 23:59 Weight 60.8 kg - General Appearance Exam: Patient appears to be alert. He is able to answer questions. His mental status is much improved compared to yesterday. Lungs coarse breath sounds. Heart regular rate and rhythm with a 2/6 systolic ejection murmur. Abdomen is benign. There is no lower extremity swelling. There is a functioning AV fistula in the left upper extremity. - Lab 05/24/17 04:30 05/24/17 04:30 Most recent lab results ABG pH 7.40 pH Units (7.32-7.45) 05/23/17 04:48 ABG pCO2 45 mmHg (35-45) 05/23/17 04:48 ABG pO2 77 mmHg (85-104) L 05/23/17 04:48 ABG HCO3 28 mEq/L (21-27) H 05/23/17 04:48 ABG O2 Saturation 95 % (95-98) 05/23/17 04:48 Calcium 9.3 mg/dL (8.6-10.3) 05/24/17 04:30 Phosphorus 6.5 mg/dL (2.7-4.5) H 05/23/17 04:42 Magnesium 2.4 mg/dL (1.6-2.6) 05/24/17 04:30 Consult Discharge Plan - Plan Referrals: [facility] [Primary Care Provider] -
--- NOTE | 2017-05-24 09:31 | Cardiology Progress Note ---
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 Demand ischemia vs. NSTEMI. Neurologic sx appears to have resolved. Palliative care consulted. Code status is [id number]. Known CAD hx with NSTEMI 01/2017. 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 Echo 01/2017 EF 40-45%. No heparin gtt due to blood loss anemia. No cardiac rehab warranted. Discussed with patient, who declines any further invasive evaluation. Will sign- off. (2) CHF (congestive heart failure) Current Visit: No Status: Chronic Known EF 40-45% 01/2017. Continue BB as BP allows. Appears euvolemic on exam, but pleural effusions on chest CT. Dialysis for fluid removal. Qualifiers: Congestive heart failure type: systolic Congestive heart failure chronicity : chronic Qualified Code(s): I50.22 - Chronic systolic (congestive) heart failure (3) ESRD (end stage renal disease) Current Visit: No Status: Chronic On dialysis. Nephrology following. (4) CAD (coronary artery disease) Current Visit: Yes Status: Chronic S/P LHC and PCI 01/2017. Recommend continuing ASA and Plavix to prevent stent thrombosis. HGB has improved s/p transfusions. BB as BP allows. Continue Statin. Qualifiers: Coronary Disease-Associated Artery/Lesion type: [place] artery [place] vs. transplanted heart: [place] heart Associated angina: without angina Qualified Code(s): I25.10 - Atherosclerotic heart disease of [place] coronary artery without angina pectoris (5) Anemia Current Visit: Yes Status: Acute Baseline ~9.5. Presented with HGB as low a 5.8, now s/p 2 unites PRBCs and HGB 9.2. Reported epistaxis over recent weeks, per . Management per primary team. Qualifiers: Anemia type: due to chronic kidney disease Chronic kidney disease stage: on chronic dialysis Qualified Code(s): N18.6 - End stage renal disease; D63.1 - Anemia in chronic kidney disease; D63.1 - Anemia in chronic kidney disease; Z99.2 - Dependence on renal dialysis; Z99.2 - Dependence on renal dialysis; Z99.2 - Dependence on renal dialysis; Z99.2 - Dependence on renal dialysis Discussion w patient/family: The assessment and plan as outlined above was discussed with the patient and/or family members who expressed understanding and agreement. All questions were answered. Thank you for involving us in the care of your patient. Please call with any questions. The patient was discussed and reviewed with Dr. Silva. Cardiology will sign- off. Subjective Principal diagnosis: Elevated troponin, anemia, ESRD Interval history: Seen and examined. Patient is alert and oriented x3, follows simple commands and responds appropriately. MILLS x4. No chest pain or discomfort. Objective Vital Signs, Last 4 Hours Temp Pulse Resp BP Pulse Ox 05/24/17 07:34 98.8 F 89 18 140/64 91 General: Conversant, Other (appears chronically ill; thin. ) HEENT: Atraumatic, Normocephaly Cardiac: Reg Rate and Rhythm, Normal S1 and S2 Lungs: Other (diminished bases) Neuro: Alert and responsive Abdomen: Soft Skin: No rashes noted on visualized skin Musculoskeletal: No Chest Wall Tenderness Extremities: No Edema, Normal Pulses Results 05/24/17 04:30 05/24/17 04:30 Lab Results 05/24/17 05/24/17 05/24/17 04:30 04:30 04:30 WBC 9.7 Hgb 7.8 L Hct 24.7 L Plt Count 216 Sodium 136 Potassium 5.2 H Chloride 97 L Carbon Dioxide 17 L BUN 72 H Creatinine 7.52 H Glucose 349 H Calcium 9.3 Magnesium 2.4 Total Bilirubin 0.4 AST 35 ALT 23 Alkaline Phosphatase 97 Active Medications Acetaminophen (Tylenol) 650 mg PO Q6HR PRN PRN Reason: Mild Pain or fever>100.4 Stop: 11/21/17 14:13 Albuterol/Ipratropium (Duoneb) 3 ml IH [id number] PRN; Protocol PRN Reason: Shortness Of Breath/Wheezing Stop: 11/21/17 15:45 Aspirin (Aspirin Ec) 81 mg PO DAILY [facility] Stop: 11/22/17 09:01 Last Admin: 05/24/17 09:52 Dose: 81 mg Atorvastatin Calcium (Lipitor) 40 mg PO HS [facility] Stop: 11/21/17 21:01 Last Admin: 05/23/17 21:27 Dose: Not Given Benzonatate (Tessalon) 200 mg PO TID PRN PRN Reason: Cough Stop: 11/21/17 15:07 Carvedilol (Coreg) 12.5 mg PO BIDWM [facility] Stop: 11/21/17 21:01 Last Admin: 05/23/17 17:04 Dose: Not Given Cinacalcet (Sensipar) 60 mg PO DAILY [facility] Stop: 11/22/17 09:01 Last Admin: 05/24/17 09:52 Dose: 60 mg Clopidogrel Bisulfate (Plavix) 75 mg PO DAILY [facility] Stop: 11/22/17 09:01 Last Admin: 05/24/17 09:53 Dose: 75 mg Dextrose/Water (Dextrose 50% (Syg)) 25 ml IVP AD PRN PRN Reason: Hypoglycemia Stop: 11/21/17 14:17 Docusate Sodium (Colace) 100 mg PO BID PRN PRN Reason: Constipation Stop: 11/21/17 14:13 Glucagon (Glucagen) 1 mg IM ONCE PRN PRN Reason: Hypoglycemia Stop: 11/21/17 14:17 Glucose (Gluctose) 15 gm PO ONCE PRN PRN Reason: Hypoglycemia Stop: 11/21/17 14:17 Glucose (Gluctose) 30 gm PO ONCE PRN PRN Reason: Hypoglycemia Stop: 11/21/17 14:17 Guaifenesin (Robitussin Liq) 200 mg PO Q6HR PRN PRN Reason: Cough Stop: 11/21/17 15:07 Hydralazine HCl (Hydralazine) 25 mg PO QID [facility] Stop: 11/21/17 17:01 Last Admin: 05/23/17 21:27 Dose: Not Given Hydralazine HCl (Hydralazine) 10 mg IVP Q6HR PRN PRN Reason: Hypertension Stop: 11/22/17 12:11 Last Admin: 05/23/17 12:41 Dose: 10 mg Levofloxacin/Dextrose (Levaquin Premix 500mg/100ml) 500 mg in 100 mls @ 100 mls /hr IVPB Q48H [facility]IA PRN Reason: Protocol Stop: 11/22/17 09:01 Last Admin: 05/23/17 10:37 Dose: 100 mls/hr Cefepime HCl 1,000 mg/ Sterile (Water) 10 mls @ 150 mls/hr IVP Q24H [facility] Stop: 11/23/17 18:01 Dextrose (Dextrose 10% Water 500 Ml Ivbag) 500 mls @ 50 mls/hr IVC .Q10H [facility] Stop: 11/22/17 10:31 Last Admin: 05/24/17 04:35 Dose: Not Given Sodium Chloride (0.9 % Sodium Chloride) 250 mls @ 937.5 mls/hr IVC .Q16M PRN PRN Reason: Hypotension Stop: 11/23/17 08:35 Lactobacillus Acidophilus/Rhamnosus (Culturelle) 1 each PO DAILY [facility] Stop: 11/22/17 09:01 Last Admin: 05/24/17 09:53 Dose: 1 each Mupirocin (Bactroban Oint) 1 appl NS BID [facility] Stop: 11/21/17 14:31 Last Admin: 05/24/17 09:53 Dose: Not Given Naloxone HCl (Narcan) 0.4 mg IVP Q2MIN PRN PRN Reason: Opioid Reversal Stop: 11/21/17 14:13 Ondansetron HCl (Zofran) 4 mg IVP Q8HR PRN PRN Reason: Nausea And Vomiting Stop: 11/21/17 14:13 Pantoprazole Sodium (Protonix) 40 mg IVP Q12HR [facility] Stop: 11/23/17 18:01 Sodium Chloride ([place] Nasal [place]) 2 spray NS TID [facility] Stop: 11/21/17 15:01 Last Admin: 05/24/17 09:53 Dose: 2 spray Vancomycin HCl (Vancocin) 1 each IVPB RPHPROT PRN PRN Reason: Placeholder Stop: 11/22/17 06:04 Vitamin B Complex/Vit C/Folic Acid (Renal Caps Softgel) 1 mg PO DAILY [facility] Stop: 11/22/17 09:01 Last Admin: 05/24/17 09:52 Dose: 1 mg - Imaging and Cardiology Echo: report reviewed Cardiac cath: report reviewed - EKG Interpretation EKG results cardiology: personally reviewed Consult Discharge Plan - Plan [facility]: [facility] [Primary Care Provider[facility] -
--- NOTE | 2017-05-24 09:50 | Neurology Progress Note ---
<Harrison Harding - Last Filed: 05/24/17 09:47> Date of Encounter: 05/24/17 Time of Encounter: 09:48 Assessment and Plan (1) Acute metabolic encephalopathy due to hypoglycemia Current Visit: Yes Status: Acute EEG was done this morning. Patient appears back to baseline. He is alert, oriented x3, mentating well, follows commands, and is able to carry on a normal conversation. gait is intact. repeat Head CT from yesterday shows no acute abnormality, hypodense material within left maxillary sinus. Plan: EEG read pending Subjective Principal diagnosis: acute metabolic encephalopathy due to hypoglycemia Interval history: 71M evaluated at bedside. patient denies nausea, vomiting, diarrhea, fever, chills, chest pain, shortness of breath. he is alert, mentating properly, and following commands. he is eager to go home and denies any further complaints today. Objective - Constitutional Vitals: Temp Pulse Resp BP Pulse Ox 98.8 F 89 18 140/64 91 05/24/17 07:34 05/24/17 07:34 05/24/17 07:34 05/24/17 07:34 05/24/17 07:34 General appearance: Present: A&O X 3, pleasant, no acute distress, answers questions appropriately - Head Head exam: Present: atraumatic, normocephalic - Extremities Exam Extremities exam: Absent: cyanotic, pedal edema - Neurological Exam Sensorimotor examination: Present: intact Motor Examination: Present: grossly full strength in all extremities Motor examination - right side: 5/5: deltoids, biceps, triceps, wrist flexion, wrist extension, [place], hip flexors, tibialis Anterior, quadriceps, toe extension (EHL), plantarflexion Motor examination - left side: 5/5: deltoids, biceps, triceps, wrist flexion, wrist extension, hip flexors, [place], quadriceps, tibialis Anterior, toe extension (EHL), plantarflexion Sensation intact: Present: intact Reflex and gait examination: intact Reflexes: Brachioradialis: 2+, Patella: 2+, Achilles: 2+ Mental Status Examination: Present: awake, alert (intermittently alert), oriented to person, oriented to place, oriented to time, follows commands appropriately, answers questions appropriately, no aphasia Cranial nerve examination: Present: PERRL, EOMI, visual burgos intact Results - Laboratory Findings CBC and BMP: 05/24/17 04:30 05/24/17 04:30 Abnormal lab findings: Abnormal lab results RBC 2.46 M/mcL (4.19-5.50) L 05/24/17 04:30 Hgb 7.8 g/dL (12.9-16.9) L 05/24/17 04:30 Hct 24.7 % (37.5-50.1) L 05/24/17 04:30 MCV 100.4 fL (83.0-100.0) H 05/24/17 04:30 RDW 19.9 % (11.5-14.5) H 05/24/17 04:30 APTT 50.7 Seconds (26.0-36.0) H 05/22/17 11:02 ABG pO2 77 mmHg (85-104) L 05/23/17 04:48 ABG HCO3 28 mEq/L (21-27) H 05/23/17 04:48 ABG Total CO2 29 mEq/L (20-26) H 05/23/17 04:48 Potassium 5.2 mEq/L (3.5-5.1) H 05/24/17 04:30 Chloride 97 mEq/L (98-107) L 05/24/17 04:30 Carbon Dioxide 17 mEq/L (23-29) L 05/24/17 04:30 BUN 72 mg/dL (8-23) H 05/24/17 04:30 Creatinine 7.52 mg/dL (0.70-1.30) H 05/24/17 04:30 Est GFR ( Amer) 9 (> 60) L 05/24/17 04:30 Est GFR (Non-Af Amer) 7 (> 60) L 05/24/17 04:30 Glucose 349 mg/dL (70-105) H 05/24/17 04:30 POC Glucose 253 (58-89) H 05/24/17 02:26 Calculated Osmolality 317 (280-300) H 05/24/17 04:30 Phosphorus 6.5 mg/dL (2.7-4.5) H 05/23/17 04:42 Troponin I 1.26 ng/mL (< 0.04) H* 05/23/17 04:40 Serum Total Protein 5.6 g/dL (6.4-8.9) L 05/24/17 04:30 Albumin 3.1 g/dL (3.5-5.7) L 05/24/17 04:30 TSH 8.091 mcIU/mL (0.340-5.600) H 05/23/17 10:45 Consult Discharge Plan - Plan Additional Instructions: F/up with PCP in 1-2 weeks F/up with HD 3 times/week- MWF F/up in ENT clinic in 1 week [facility]errals: [facility] [Primary Care Provider[facility] - Prescriptions: Levothyroxine [Synthroid] 25 mcg PO 30 #30 tablet Mupirocin [Bactroban Oint] 1 appl NS BID 10 Days tube Saline Nasal [place] [[place] Nasal [place]] 2 spray NS TID 10 Days bottle <Albert Chino - Last Filed: 05/24/17 16:43> Date of Encounter: 05/24/17 Assessment and Plan (1) Acute metabolic encephalopathy due to hypoglycemia Current Visit: Yes Status: Acute As above. EEG revealed mild generalized encephalopathy. No evidence of seizure activity is identified. At this juncture I would expect this patient to make a full recovery. Neurology will sign off. Subjective Interval history: The chart was reviewed, patient was seen and examined independently. I agree with the neurology resident's assessment as above. Repeat CT scan of the head as was unremarkable. EEG revealed mild generalized encephalopathy. However clinically patient appears to be back to his normal baseline status. Objective - Constitutional Vitals: Temp Pulse Resp BP Pulse Ox 98.0 F 82 20 152/84 88 05/24/17 15:12 05/24/17 15:12 05/24/17 15:12 05/24/17 16:05 05/24/17 10:55 - Neurological Exam Cranial nerve examination: Present: sensory to face intact, mastication intact, no facial asymmetry is present, no dysarthria, hearing is intact symmetrically Results - Laboratory Findings CBC and BMP: 05/24/17 04:30 05/24/17 04:30 Abnormal lab findings: Abnormal lab results RBC 2.46 M/mcL (4.19-5.50) L 05/24/17 04:30 Hgb 7.8 g/dL (12.9-16.9) L 05/24/17 04:30 Hct 24.7 % (37.5-50.1) L 05/24/17 04:30 MCV 100.4 fL (83.0-100.0) H 05/24/17 04:30 RDW 19.9 % (11.5-14.5) H 05/24/17 04:30 APTT 50.7 Seconds (26.0-36.0) H 05/22/17 11:02 ABG pO2 77 mmHg (85-104) L 05/23/17 04:48 ABG HCO3 28 mEq/L (21-27) H 05/23/17 04:48 ABG Total CO2 29 mEq/L (20-26) H 05/23/17 04:48 Potassium 5.2 mEq/L (3.5-5.1) H 05/24/17 04:30 Chloride 97 mEq/L (98-107) L 05/24/17 04:30 Carbon Dioxide 17 mEq/L (23-29) L 05/24/17 04:30 BUN 72 mg/dL (8-23) H 05/24/17 04:30 Creatinine 7.52 mg/dL (0.70-1.30) H 05/24/17 04:30 Est GFR ( Amer) 9 (> 60) L 05/24/17 04:30 Est GFR (Non-Af Amer) 7 (> 60) L 05/24/17 04:30 Glucose 349 mg/dL (70-105) H 05/24/17 04:30 POC Glucose 253 (58-89) H 05/24/17 02:26 Calculated Osmolality 317 (280-300) H 05/24/17 04:30 Phosphorus 6.5 mg/dL (2.7-4.5) H 05/23/17 04:42 Troponin I 1.26 ng/mL (< 0.04) H* 05/23/17 04:40 Serum Total Protein 5.6 g/dL (6.4-8.9) L 05/24/17 04:30 Albumin 3.1 g/dL (3.5-5.7) L 05/24/17 04:30 TSH 8.091 mcIU/mL (0.340-5.600) H 05/23/17 10:45 Free T3 2.01 pg/mL (2.50-3.90) L 05/24/17 04:29
[2017-05-24] MEDS: Renal Vitamin 1 MG CAPSULE PO SCH (09:52)
[2017-05-24] MEDS: Aspirin Enteric Coated 81 MG Tablet PO SCH (09:52)
[2017-05-24] MEDS: Lactobacillus 1 EACH CAP.SPRINK PO SCH (09:53)
[2017-05-24] MEDS: Saline Nasal Spray 44 ML BOTTLE NS SCH ×2 (09:53→17:16)
--- NOTE | 2017-05-24 10:19 | Event Note ---
Date of Encounter: 05/24/17 Time of Encounter: 10:18 Discussed with patient and the need for a medical alert bracelet reflect his increased blood sugar needs. Specifically to say to keep blood sugars at or above 200. Patient and feel this is a good idea we will pursue that once he gets out of the hospital. As already noted since the patient has improved so much palliative we will sign off.
[2017-05-24 10:29] LABS: Hepatitis B Surface Antibody 83.92 mIU/mL
[2017-05-24] MEDS ORDERED: 0.9 % Sodium Chloride 2,000 ML ONE (10:39)
--- NOTE | 2017-05-24 10:51 | EEG/EMG/Oth Biometrics Report ---
EEG Procedure Report Date of procedure: 05/24/17 EEG Procedure: Routine EEG Procedure Note: This is a report of a 21 channel bipolar and referential montage EEG. The posterior dominant rhythm consists of 7 Hz moderate voltage theta frequency. This rhythm reacts symmetrically to eye opening. Hyperventilation is not performed during the recording. Occasional mixed delta and theta frequencies are identified anteriorly. Periods of drowsiness and stage II sleep were identified as referenced by dropout of the posterior dominant rhythm, and the emergence of vertex activity, K complexes and sleep spindles. Photic stimulation is performed and does not produce a driving response. The EKG rhythm strip reveals normal sinus rhythm at 96 bpm. Impressions: This EEG recording is mildly abnormal reflective of a mild generalized encephalopathy. There is no evidence of epileptiform activity identified during the study. Comment: Etiologies of this interpretation might include toxic, metabolic, postictal, degenerative. Please correlate clinically.
[2017-05-24] MEDS ORDERED: D5% in Water 1,000 ML IVC PRN (11:03)
[2017-05-24] MEDS: Insulin LISPRO 300 UNITS/3 ML VIAL SQ SCH ×2 (12:02→17:59)
--- NOTE | 2017-05-24 14:18 | Discharge Summary ---
Date of Encounter: 05/24/17 Time of Encounter: 10:00 - Discharge Diagnosis (1) Acute bronchitis Priority: Primary Status: Ruled-out Qualifiers: Bronchitis organism: unspecified organism Qualified Code(s): J20.9 - Acute bronchitis, unspecified (2) Hypoglycemia Priority: Primary Status: Acute (3) Acute encephalopathy Priority: Primary Status: Acute (4) Acute respiratory failure with hypoxemia Priority: Primary Status: Acute (5) ESRD (end stage renal disease) Priority: Secondary Status: Chronic (6) IDDM (insulin dependent diabetes mellitus) Priority: Secondary Status: Chronic (7) Anemia Priority: Primary Status: Acute Qualifiers: Anemia type: other cause Other causes of anemia: acute posthemorrhagic Qualified Code(s): D62 - Acute posthemorrhagic anemia (8) Elevated troponin Priority: Primary Status: Acute (9) CAD (coronary artery disease) Priority: Secondary Status: Chronic Qualifiers: Coronary Disease-Associated Artery/Lesion type: [place] artery [place] vs. transplanted heart: [place] heart Associated angina: without angina Qualified Code(s): I25.10 - Atherosclerotic heart disease of [place] coronary artery without angina pectoris - Discharge Medications Prescriptions: Levothyroxine [Synthroid] 25 mcg PO 0630 #30 tablet Mupirocin [Bactroban Oint] 1 appl NS BID 10 Days tube Saline Nasal [place] [[place] Nasal [place]] 2 spray NS TID 10 Days bottle Home Medications: Aspirin [Lo-Dose Aspirin EC] 81 mg PO DAILY 01/29/17 [History] Cinacalcet HCl [Sensipar] 60 mg PO DAILY 01/29/17 [History] Insulin Glargine,Hum.rec.anlog [Lantus Solostar] 15 - 18 unit SQ HS 01/29/17 [ History] Renal Vitamin [Renal Caps Softgel] 1 mg PO DAILY 01/29/17 [History] Sevelamer [Renvela] 2,400 mg PO TIDWM 01/29/17 [History] amLODIPine [Norvasc] 5 mg PO BID 01/29/17 [History] hydrALAZINE [HydrALAZINE] 25 mg PO QID 01/29/17 [History] Dextrose Gel [Gluctose] 15 gm PO ONCE PRN 01/30/17 [History] Glucagon,Human Recombinant [Glucagon Emergency Kit] 1 mg IJ AD PRN 01/30/17 [ History] Atorvastatin [Lipitor] 40 mg PO HS #30 tablet 02/01/17 [Rx] Clopidogrel [Plavix] 75 mg PO DAILY #30 tablet 02/01/17 [Rx] Lisinopril [Zestril] 10 mg PO DAILY #30 tablet 02/02/17 [Rx] Carvedilol 12.5 mg PO BID 05/22/17 [History] Insulin ASPART [Novolog Flexpen] 2 - 4 unit SQ TIDWM 05/22/17 [History] Lactobacillus Combination No.8 [Adult Probiotic] 1 cap PO DAILY 05/22/17 [ History] Ranitidine HCl [Zantac] 150 mg PO DAILY 05/22/17 [History] Levothyroxine [Synthroid] 25 mcg PO 0630 #30 tablet 05/24/17 [Rx] Mupirocin [Bactroban Oint] 1 appl NS BID 10 Days tube 05/24/17 [Rx] Saline Nasal [place] [[place] Nasal [place]] 2 spray NS TID 10 Days bottle 05/24/17 [ Rx] Allergies/Adverse Reactions: 3 Allergy/AdvReac Type Severity Reaction Status Date / Time No Known Allergies Allergy Verified 05/22/17 13:43 Date of admission: 05/23/17 18:58 [facility] care physician: [facility] Consults: 05/24/17 08:45 Consult to Dialysis [CONS] ONCE 05/24/17 10:56 Consult to Interpret Exam [CONS] Routine Consulting Provider: Albert Chino Consult to Interpret Exam: Interpret EEG Discharging clinician: Ana Rosa Kay Anticipated date of discharge: 05/24/17 - Patient Status Disposition: Home, Self-Care Condition: Good Functional capacity at discharge: independent ambulation Overall status at discharge: patient is progressing back to baseline - Discharge Instructions Instructions: Anemia (GEN) Follow Up With: [facility] [Primary Care Provider] - Additional Instructions: F/up with PCP in 1-2 weeks F/up with HD 3 times/week- MWF F/up in ENT clinic in 1 week - Diet and Activity Activity: resume usual activities as tolerated Diet: diabetic diet, low fat, low cholesterol, low salt diet, other (renal diet) Hospital course: Mr. Gallo is a 71 year old male with the above medical problems who was referred from hemodialysis unit for abnormally low hemoglobin of 5.6. Patient reported epistaxis, which is likely the etiology for acute blood loss anemia. His hemoglobin stabilized after receiving 2 units PRBC transfusion. ENT was consulted by emergency room physician and patient was started on saline nasal spray and mupirocin ointment, as he was recently treated for acute sinusitis. His epistaxis eventually resolved. Patient then developed acute metabolic encephalopathy and became unresponsive while on the floor. CT head showed no acute abnormality. He was noted to have persistently low blood sugars and was started on 10% dextrose fluids. Neurology was consulted and recommended EEG, which was noted to be low signals s /o encephalopathy, with no epileptiform activity. He gradually regained normal and baseline mental status. Nephrology was consulted and patient received regular hemodialysis sessions. He is noted to have a further drop in hemoglobin today and received 2 units PRBC transfusion. TSH was also noted to be elevated with low free T3 and given his hypoglycemia, patient is being started on levothyroxine, recommended to follow up with his PCP. - Time Spent with Patient Total time spent providing and/or coordinating discharge services: Greater than 30 minutes (45 min) - Constitutional Vitals: Temp Pulse Resp BP Pulse Ox 93 F L 93 19 142/91 88 05/24/17 10:55 05/24/17 10:55 05/24/17 10:55 05/24/17 10:55 05/24/17 10:55 General appearance: Present: A&O X 3, answers questions appropriately - Cardiovascular Cardiovascular exam: Present: RRR, +S1, +S2. Absent: diastolic murmur, gallop, rubs, systolic murmur
[2017-05-24 15:13] LABS: Triiodothyronine (T3) Free 2.01 pg/mL (2.50-3.90)
[2017-05-24] MEDS: hydrALAZINE 25 MG TABLET PO SCH ×2 (16:12→16:13)
[2017-05-24 17:41] VITALS: BP 163/87
[2017-05-24] MEDS ORDERED: Cefepime HCl 1,000 MG in Water for inj. (sterile) 20 ML 10 ML IVP SCH (18:00)
[2017-05-24] MEDS ORDERED: Pantoprazole 40 MG VIAL IVP SCH (18:00)
[2017-05-24] MEDS ORDERED: Aminoglycoside Consult 1 EACH MC ONE (18:13)
[2017-05-24] MEDS ORDERED: Insulin LISPRO 300 UNITS/3 ML VIAL SQ SCH (21:00)
== END 2017-05-24 18:14 | disposition home or self-care (01) | DRG 811 ==
LOC: 2ANU 10:34 → EMEROO 10:34 → SUATTDRO 13:34 → 2ANU 14:04
PROVIDERS: ADMIT Internal Medicine; ATTEND Internal Medicine

== ENCOUNTER 2017-10-16 13:55 | Inpatient (IN) ==
--- NOTE | 2017-10-16 14:24 | Emergency Department Note ---
Disposition Clinical Impression: End stage chronic kidney disease GI bleed Qualifiers: GI bleed type/associated pathology: melena Qualified Code(s): K92.1 - Melena Anemia Qualifiers: Anemia type: unspecified type Qualified Code(s): D64.9 - Anemia, unspecified Disposition: Admitted As Inpatient Condition: Fair [facility]Primary Care Provider[facility] - Forms: ED Satisfaction Letter Time of Disposition: 15:25 Recheck wound or abnormal lab - General Chief Complaint: ED Recheck/Abnormal Lab/Rx Stated Complaint: anemia Time Seen by Provider: 10/16/17 13:57 Source: patient, EMS Mode of arrival: EMS Limitations: no limitations Nursing Notes Reviewed: Yes Vital Signs Reviewed: Yes - History of Present Illness HPI Narrative: Patient sent from the [facility] due to anemia. 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 He states he feels a little weak but otherwise denies symptoms. He did have a dark-colored stool this morning during dialysis. He has not missed dialysis. His last transfusion was approximately 6 months ago. Pt Subjective Complaint: abnormal lab(s) - Related Data Home Medications Medication Instructions Recorded Confirmed Aspirin [Lo-Dose Aspirin EC] 81 mg PO DAILY 01/29/17 07/06/17 Cinacalcet HCl [Sensipar] 60 mg PO DAILY 01/29/17 07/06/17 Insulin Glargine,Hum.rec.anlog 8 unit SQ HS 01/29/17 07/06/17 [Lantus Solostar] Renal Vitamin [Renal Caps Softgel] 1 mg PO DAILY 01/29/17 07/06/17 Sevelamer [Renvela] 2,400 mg PO TIDWM 01/29/17 07/06/17 amLODIPine [Norvasc] 5 mg PO BID 01/29/17 07/06/17 hydrALAZINE [HydrALAZINE] 25 mg PO QID 01/29/17 07/06/17 Glucagon,Human Recombinant 1 mg IJ AD PRN 01/30/17 07/06/17 [Glucagon Emergency Kit] Carvedilol 12.5 mg PO BID 05/22/17 07/06/17 Insulin ASPART [Novolog Flexpen] 2 - 4 unit SQ TIDWM 05/22/17 07/06/17 Lactobacillus Combination No.8 1 cap PO DAILY 05/22/17 07/06/17 [Adult Probiotic] raNITIdine HCl [Zantac] 150 mg PO DAILY 05/22/17 07/06/17 Losartan [Cozaar] 50 mg PO BID 07/06/17 07/06/17 Previous Rx's Medication Instructions Recorded Atorvastatin [Lipitor] 40 mg PO HS #30 tablet 02/01/17 Clopidogrel [Plavix] 75 mg PO DAILY #30 tablet 02/01/17 Lisinopril [Zestril] 10 mg PO DAILY #30 tablet 02/02/17 Levothyroxine [Synthroid] 25 mcg PO 0630 #30 tablet 05/24/17 Allergies Allergy/AdvReac Type Severity Reaction Status Date / Time No Known Allergies Allergy Verified 07/06/17 10:22 All systems ED: reviewed and negative except as stated. Constitutional: Reports: weakness Eyes: Reports: as per HPI ENT ED: Reports: as per HPI Cardiovascular: Reports: as per HPI Respiratory: Reports: as per HPI Gastrointestinal: Reports: melena Genitourinary: Reports: as per HPI Musculoskeletal: Reports: as per HPI Integumentary: Reports: as per HPI Neurological: Reports: as per HPI Psychiatric: Reports: as per HPI Endocrine: Reports: fatigue Hematological/Lymphatic: Reports: as per HPI Allergic/Immunologic: Reports: as per HPI Past Medical History - Past Medical History Source: patient Medical history: Reports: CHF, diabetes, dialysis, hypertension, myocardial infarction, renal disease Surgical history: Reports: other (LHC, AV fistula) Psychiatric history: Reports: no psych history - Social History Smoking Status: Current every day smoker Smokeless Tobacco Status: No Alcohol use: Reports: none Drug use: Reports: none Physical Exam - General Limitations: no limitations General appearance: alert, in no apparent distress - Head Head exam: atraumatic - Eye Eye exam: Present: normal appearance - ENT ENT exam: normal exam - Neck Neck exam: Present: normal inspection, full ROM - Chest Chest inspection: Present: normal inspection, symmetric chest wall rise - Respiratory Respiratory exam: Present: normal lung sounds bilaterally - Cardiovascular Cardiovascular exam: Present: regular rate, normal rhythm, systolic murmur - Abdominal Exam Abdominal exam: Present: soft, Non-Tender - Rectal Exam Elevator Installer Apprentice present during exam: Yes Rectal exam: Present: normal rectal tone, heme (+) stool - Extremities Exam Extremities exam: Present: other (Left upper extremity AV fistula) - Neurological Exam Neurological exam: Present: alert, oriented X3, CN II-XII intact - Psychiatric Psychiatric exam: Present: normal affect, normal mood - Skin Skin exam: Present: warm, dry Course Course Narrative: Patient presents as a transfer from the [facility] due to a hemoglobin of 6. He has a history of chronic anemia secondary to kidney disease. EKG performed and reviewed by me. Patient consented after the risks benefits and alternatives were discussed for transfusion of packed red blood cells. I will determine the need for transfusion in conjunction with discussion with his closing machine operator. - Reevaluation(s) Reevaluation #1: Hemoccult-positive. Protonix ordered. Pending transfusion. Case discussed with the patient's closing machine operator. agreeable to admit - Consultations Consultation #1: Call placed to Dr. Ortiz, nephrology Vital Signs Temperature 97.6 F 10/16/17 14:12 Pulse Rate 96 10/16/17 14:12 Respiratory Rate 18 10/16/17 14:12 Blood Pressure 159/72 10/16/17 14:12 O2 Sat by Pulse Oximetry 96 10/16/17 14:12 Temperature 97.6 F 10/16/17 14:12 Pulse Rate 86 10/16/17 14:18 Respiratory Rate 18 10/16/17 14:18 Blood Pressure 159/72 10/16/17 14:12 O2 Sat by Pulse Oximetry 99 10/16/17 14:18 Oxygen Delivery Oxygen Delivery Room Air Recheck wound or abnormal lab - Medical Records Medical records reviewed: Yes I reviewed the patient's medical records. - Lab Data Lab results reviewed: Yes I reviewed the patient's lab results. Lab Results 10/16/17 10/16/17 Range/Units 14:10 14:19 Stool Occult Blood Positive A (Negative) Blood Type O POSITIVE Antibody Screen NEGATIVE Crossmatch See Detail - Radiology Data Radiology results reviewed: Yes I reviewed the patient's radiology results. - EKG Data EKG attestation: Yes I reviewed and interpreted this EKG. EKG results narrative: Normal sinus rhythm rate 76 P-R 125 QRS 102 QT/QTc 420/450. ST segment depression in the inferior and lateral leads. Study unchanged from previous compared 05/23/17
[2017-10-16] MEDS ORDERED: Pantoprazole 40 MG VIAL IVP ONE (15:24)
[2017-10-16] MEDS ORDERED: 0.9 % Sodium Chloride 250 ML ONE ×2 (15:47→18:52)
[2017-10-16] MEDS ORDERED: Naloxone 0.4 MG/ML INJ IVP PRN (16:21)
[2017-10-16] MEDS ORDERED: D5% in Water 1,000 ML IVC PRN (16:23)
[2017-10-16] MEDS ORDERED: *HR* Dextrose 50 % in Water (Syg) 50 ML SYRINGE IVP PRN (16:23)
[2017-10-16] MEDS ORDERED: Dextrose Gel 15 GM/37.5 ML TUBE PO PRN ×2 (16:23)
--- NOTE | 2017-10-16 16:28 | Internal Med History&Physical ---
Date of Encounter: 10/16/17 Time of Encounter: 16:25 Internal Medicine - H&P: HPI Chief complaint: neck pain History of present illness: Mr. Gallo is a 72 year old male who presents with melena and anemia suspicious for upper GI bleed. She is under the care of Dr. Levine and had received Monday hemodialysis prior to admission. After his dialysis he visited the OR for 1 week history of cervical neck pain that is worse on range of motion and positioning suspicious to be MSK related. Has been having difficulty sleeping. However a CBC checked found him to be anemic with hemoglobin 6.2. On review of symptoms he reported dark tarry stool of the duration associated with subjective lightheadedness. He denies any active chest pain or chest symptoms Of note he is on dual antiplatelet therapy for an STEMI status post coronary stenting in January 2017 EKG reported rate 76, nonspecific ST-T changes Past Med Surg Social Fam HX - Past Medical History Medical history: CHF, diabetes, dialysis, hypertension, myocardial infarction, renal disease Psychiatric history: no psych history - Past Surgical History Surgical History: other (LHC, AV fistula) Additional surgical history: Stent placement - Social History Smoking Status: Current every day smoker Smokeless Tobacco Status: No Alcohol use: none Drug use: none - Family History Mother Living Status: Hx Family Cardiac Disorders: Yes Hx Family Respiratory Disorders: No Father Living Status: Hx Family Cardiac Disorders: No Hx Family Respiratory Disorders: No Brother Hx Family Cardiac Disorders: Yes Hx Family Neuromuscular Disorders: Yes Internal Medicine - H&P: Meds Aspirin [Lo-Dose Aspirin EC] 81 mg PO DAILY 01/29/17 [History] Cinacalcet HCl [Sensipar] 60 mg PO DAILY 01/29/17 [History] Insulin Glargine,Hum.rec.anlog [Lantus Solostar] 16 - 18 unit SQ HS 01/29/17 [ History] Renal Vitamin [Renal Caps Softgel] 1 mg PO DAILY 01/29/17 [History] Sevelamer [Renvela] 2,400 mg PO TIDWM 01/29/17 [History] amLODIPine [Norvasc] 5 mg PO BID 01/29/17 [History] hydrALAZINE [HydrALAZINE] 25 mg PO QID 01/29/17 [History] Glucagon,Human Recombinant [Glucagon Emergency Kit] 1 mg IJ AD PRN 01/30/17 [ History] Atorvastatin [Lipitor] 40 mg PO HS #30 tablet 02/01/17 [Rx] Clopidogrel [Plavix] 75 mg PO DAILY #30 tablet 02/01/17 [Rx] Lisinopril [Zestril] 10 mg PO DAILY #30 tablet 02/02/17 [Rx] Carvedilol 12.5 mg PO BID 05/22/17 [History] Insulin ASPART [Novolog Flexpen] 2 - 4 unit SQ TIDWM 05/22/17 [History] Lactobacillus Combination No.8 [Adult Probiotic] 1 cap PO DAILY 05/22/17 [ History] Levothyroxine [Synthroid] 25 mcg PO 0630 #30 tablet 05/24/17 [Rx] Losartan [Cozaar] 50 mg PO BID 07/06/17 [History] raNITIdine HCl [Zantac] 150 mg PO DAILY 10/16/17 [History] 3 Allergy/AdvReac Type Severity Reaction Status Date / Time No Known Allergies Allergy Verified 10/16/17 16:04 All Systems PM: A 10-system review of systems was performed and is negative for pertinent findings except as documented above in the HPI. Review of systems: ROS 14 point review of systems reviewed as best as possible given presentation. Pertinent positive or negative as per HPI or otherwise reviewed as negative - Constitutional Vitals: Temp Pulse Resp BP Pulse Ox 97.7 F 74 18 156/75 99 10/16/17 16:18 10/16/17 16:18 10/16/17 16:18 10/16/17 16:18 10/16/17 14:18 Exam: General - AAO x 3 Psych - Appropriate affect/speech. No agitation Eyes - IZZY. Eye lids intact. No scleral icterus Neuro - No gross peripheral or central neuro deficits on inspection Heart - Sinus. RRR. S1 and S2 present. No added HS/murmurs appreciated. No elevated JVD appreciated. Lung - Adequate air entry b/l, No crackles/wheezes appreciated GI - Soft, non-tender. No hepatosplenomegaly/ascites. BS+ - No CVA/suprapubic tenderness or palpable bladder distension Skin - Intact. No rash/petechiae/ecchymosis. Warm extremities MSK - Neck pain on ROM - Assessment and plan (1) Melena Current Visit: Yes Status: Acute Assessment and plan: 2 pRBC ordered in the ED q6 H&H trend protonix gtt d/w surgery - Dr Rodriguez who will assist, request NPO after MN unable to stop DAPT due to BAHMAN placement jan 2017 Hold IVF due to ESRD on HD and getting 2 pRBC - to avoid vol overload (2) Anemia Current Visit: Yes Status: Acute Assessment and plan: suspect 2/2 to GIB above Qualifiers: Anemia type: other cause Qualified Code(s): D62 - Acute posthemorrhagic anemia (3) Type 2 diabetes mellitus with diabetic chronic kidney disease Current Visit: No Status: Acute Assessment and plan: ISS for now Qualifiers: Diabetes mellitus skilled nursing insulin use: with intermission coordinator use Chronic kidney disease stage: on chronic dialysis Qualified Code(s): E11.22 - Type 2 diabetes mellitus with diabetic chronic kidney disease; N18.6 - End stage renal disease; Z79.4 - jail (current) use of insulin; Z99.2 - Dependence on renal dialysis (4) CAD (coronary artery disease) Current Visit: No Status: Chronic Assessment and plan: NSTEMI s/p stent 01/2017 Qualifiers: Coronary Disease-Associated Artery/Lesion type: [place] artery [place] vs. transplanted heart: [place] heart Associated angina: without angina Qualified Code(s): I25.10 - Atherosclerotic heart disease of [place] coronary artery without angina pectoris (5) Neck pain Current Visit: Yes Status: Acute Assessment and plan: suspect MSK neck strain trial of anti spasmodic zanaflex (6) ESRD (end stage renal disease) Current Visit: No Status: Chronic Assessment and plan: MWF HD with Dr Levine - Time Spent With Patient Total time spent is greater than 50% in coordination of care (as documented) at patient's floor/unit and/or counseling patient:
--- NOTE | 2017-10-16 16:59 | Electrocardiograph Report ---
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
--- NOTE | 2017-10-16 17:39 | General Surgery Consult Note ---
<Dano Mustafa Maricruz - Last Filed: 10/16/17 17:50> Date of Encounter: 10/16/17 Time of Encounter: 17:30 Assessment and Plan (1) GI bleed Current Visit: Yes Status: Acute One episode of melena, hemoccult positive in ED. Hgb 6.2 (prior 7.8 in May). No prior EGD or Colonscopy Likely secondary to taking large amounts of aspirin Vital signs are stable Other labs reviewed from [place] are unremarkable Will wait on EGD at this time Hold ASA Continue Protonix Add Carafate 1gm QID NPO except medications Transfuse 2U RBCs per primary team and monitor Hgb Qualifiers: GI bleed type/associated pathology: melena Qualified Code(s): K92.1 - Melena (2) Anemia Current Visit: Yes Status: Acute Acute on Chronic Anemia of CKD - worsened by aspirin use Plan as above Qualifiers: Anemia type: other cause Other causes of anemia: other cause, not classified Qualified Code(s): D64.89 - Other specified anemias (3) ESRD (end stage renal disease) Current Visit: Yes Status: Chronic (4) CAD (coronary artery disease) Current Visit: Yes Status: Chronic s/p stent placement in Jan 2017 - on ASA and Plavix. Hold ASA Qualifiers: Coronary Disease-Associated Artery/Lesion type: [place] artery [place] vs. transplanted heart: [place] heart Associated angina: without angina Qualified Code(s): I25.10 - Atherosclerotic heart disease of [place] coronary artery without angina pectoris History of Present Illness Consult date: 10/16/17 Reason for consult: other (Melena) Requesting physician: Shayan Garcia History of present illness: 72-year-old male with PMH of ESRD, chronic anemia of renal disease, CHF, diabetes, hypertension, CAD with stent placement January 2017. PSH includes LHC and AV fistula placement. Admitted for anemia (hgb 6.2) found on blood work at the [place] urgent care when he was being evaluated for neck pain. He does report that while at dialysis morning he had one dark black stool, none prior and none since. Denies other symptoms. Denies weight loss, lightheadedness, dizziness, chest pain, dyspnea, abdominal pain, change in appetite, N/V, hemoptysis, hematochezia, diarrhea, constipation, change in stool caliber, dysuria, or hematuria. He is on Plavix and aspirin status post stent placement. He has never had a colonoscopy, but had one scheduled in January because that would be a year after his stent was placed. No FH of colon cancer. He also reports that he has been having neck pain, and has been taking excessive amounts of aspirin over the past 3 days. He thinks he took about 70 tablets of 325 mg aspirin over 3 days. He was also give a naproxen injection at the urgent care this morning. Follows with [facility] for dialysis on [facility] and has not missed any treatments. Past Med Surg Social Fam HX - Past Medical History Medical history: CHF, diabetes, dialysis, hypertension, myocardial infarction, renal disease Psychiatric history: no psych history - Past Surgical History Surgical History: other (LHC, AV fistula) Additional surgical history: Stent placement - Social History Smoking Status: Current every day smoker Smokeless Tobacco Status: No Alcohol use: none Drug use: none - Family History Mother Living Status: Hx Family Cardiac Disorders: Yes Hx Family Respiratory Disorders: No Father Living Status: Hx Family Cardiac Disorders: No Hx Family Respiratory Disorders: No Brother Hx Family Cardiac Disorders: Yes Hx Family Neuromuscular Disorders: Yes Medications and Allergies Aspirin [Lo-Dose Aspirin EC] 81 mg PO DAILY 01/29/17 [History] Cinacalcet HCl [Sensipar] 60 mg PO DAILY 01/29/17 [History] Insulin Glargine,Hum.rec.anlog [Lantus Solostar] 16 - 18 unit SQ HS 01/29/17 [ History] Renal Vitamin [Renal Caps Softgel] 1 mg PO DAILY 01/29/17 [History] Sevelamer [Renvela] 2,400 mg PO TIDWM 01/29/17 [History] amLODIPine [Norvasc] 5 mg PO BID 01/29/17 [History] hydrALAZINE [HydrALAZINE] 25 mg PO QID 01/29/17 [History] Glucagon,Human Recombinant [Glucagon Emergency Kit] 1 mg IJ AD PRN 01/30/17 [ History] Atorvastatin [Lipitor] 40 mg PO HS #30 tablet 02/01/17 [Rx] Clopidogrel [Plavix] 75 mg PO DAILY #30 tablet 02/01/17 [Rx] Lisinopril [Zestril] 10 mg PO DAILY #30 tablet 02/02/17 [Rx] Carvedilol 12.5 mg PO BID 05/22/17 [History] Insulin ASPART [Novolog Flexpen] 2 - 4 unit SQ TIDWM 05/22/17 [History] Lactobacillus Combination No.8 [Adult Probiotic] 1 cap PO DAILY 05/22/17 [ History] Levothyroxine [Synthroid] 25 mcg PO 0630 #30 tablet 05/24/17 [Rx] Losartan [Cozaar] 50 mg PO BID 07/06/17 [History] raNITIdine HCl [Zantac] 150 mg PO DAILY 10/16/17 [History] 3 Allergy/AdvReac Type Severity Reaction Status Date / Time No Known Allergies Allergy Verified 10/16/17 16:04 Review of Systems All systems PM: reviewed and no additional remarkable complaints except as stated All systems PM: The remainder of the systems were reviewed and are negative General Surgery Exam Initial Vital Signs Temp Pulse Resp BP Pulse Ox 97.6 F 96 18 159/72 96 10/16/17 14:12 10/16/17 14:12 10/16/17 14:12 10/16/17 14:12 10/16/17 14:12 - General physical appearance no distress, cachectic - Eyes PERRL, normal ocular movement - Neck no masses, trachea midline, no lymphadectomy, no venous distension - Respiratory normal expansion, normal respiratory effort, clear to percussion, clear to auscultation - Cardiovascular Cardiovascular exam: Present: RRR. Absent: murmurs, clicks, rubs - Abdomen Abdomen general surgery: Present: bowel sounds present, soft, non tender. Absent: organomegaly, guarding, rebound, rigid, surgical scars - Integumentary Integumentary general surgery: Present: warm and dry, no abnormal pigmentation - Neurologic Present: CN 2-12 grossly intact, normal coordination, normal sensation - Psychiatric Psychiatric general surgery: Present: A&Ox3, appropriate, speech is normal, memory intact Exam Initial Vital Signs Temp Pulse Resp BP Pulse Ox 97.6 F 96 18 159/72 96 10/16/17 14:12 10/16/17 14:12 10/16/17 14:12 10/16/17 14:12 10/16/17 14:12 Results - Labs Abnormal lab results Stool Occult Blood Positive (Negative) A 10/16/17 14:10 All other labs normal. Consult Discharge Plan - Plan [facility]errals: [facility]Primary Care Provider[facility] - <Tania Rodriguez - Last Filed: 10/18/17 08:26> Date of Encounter: 10/17/17 Time of Encounter: 12:00 Assessment and Plan (1) Anemia Current Visit: Yes Status: Acute chronic anemia due to CKD4 with acute blood loss likely due to UGI source due to aspirin intake Qualifiers: Anemia type: other cause Other causes of anemia: other cause, not classified Qualified Code(s): D64.89 - Other specified anemias (2) Melena Current Visit: Yes Status: Acute discussed with patient that he cannot take aspirin like that, it is more of a blood thinner versus pain reliever we will plan an egd and colonoscopy with anesthesia, risks and benefits discussed and he wishes to proceed he will do clears today bowel prep today npo midnight medical management per hospitalist (3) ESRD (end stage renal disease) Current Visit: Yes Status: Chronic spoke with Dr Ortiz, he is ok with us doing egd/colonoscopy first thing wed am and patient getting his dialysis afterwards History of Present Illness History of present illness: Patient is a 72 yo female with multiple comorbidities. He has been having neck pain and over the course of three days reports that he took "a bottle of aspirin ", likely 325 mgs. The day of presentation, yesterday, he started passing black stools. Denies abdominal pain, no nausea or emesis. Denies heartburn or reflux symptoms. No constipation or diarrhea. No recent change in bowel habits. No recent weight loss. No [facility] colorectal cancer. He has never had a colonoscopy. Past Med Surg Social Fam HX - Past Medical History Source: patient Medical history: coronary artery disease, diabetes, dialysis, hypertension, myocardial infarction, renal disease (CKD4) Psychiatric history: no psych history - Past Surgical History Surgical History: other Review of Systems All systems PM: reviewed and no additional remarkable complaints except as stated All systems PM: The remainder of the systems were reviewed and are negative General Surgery Exam Initial Vital Signs Temp Pulse Resp BP Pulse Ox 97.6 F 96 18 159/72 96 10/16/17 14:12 10/16/17 14:12 10/16/17 14:12 10/16/17 14:12 06/04/18 14:12 - General physical appearance no distress, cachectic, chronically ill - Eyes PERRL, normal ocular movement - ENT normal mucosa, normocephalic - Neck trachea midline - Respiratory normal expansion, normal respiratory effort - Cardiovascular Cardiovascular exam: Present: RRR - Abdomen Abdomen general surgery: Present: bowel sounds present, soft, non tender. Absent: tender, guarding, rebound - Integumentary Integumentary general surgery: Present: warm and dry, no abnormal pigmentation - Neurologic Present: CN 2-12 grossly intact - Musculoskeletal Present: normal gait, normal posture - Psychiatric Psychiatric general surgery: Present: A&Ox3 Exam Initial Vital Signs Temp Pulse Resp BP Pulse Ox 97.6 F 96 18 159/72 96 10/16/17 14:12 10/16/17 14:12 10/16/17 14:12 10/16/17 14:12 10/16/17 14:12 Results - Labs 10/18/17 06:20 10/18/17 00:43 Abnormal lab results RBC 2.63 M/mcL (4.19-5.50) L 10/18/17 00:43 Hgb 8.2 g/dL (12.9-16.9) L 10/18/17 06:20 Hct 24.2 % (37.5-50.1) L 10/18/17 06:20 RDW 17.5 % (11.5-14.5) H 10/18/17 00:43 PT 13.7 Seconds (9.4-12.1) H 10/16/17 18:53 APTT 49.2 Seconds (26.0-36.0) H 10/16/17 18:53 Sodium 127 mEq/L (136-145) L 10/18/17 00:43 Potassium 5.6 mEq/L (3.5-5.1) H 10/18/17 00:43 Chloride 87 mEq/L (98-107) L 10/18/17 00:43 Carbon Dioxide 19 mEq/L (23-29) L 10/18/17 00:43 BUN 100 mg/dL (8-23) H 10/18/17 00:43 Creatinine 7.67 mg/dL (0.70-1.30) H 10/18/17 00:43 Est GFR ( Amer) 9 (> 60) L 10/18/17 00:43 Est GFR (Non-Af Amer) 7 (> 60) L 10/18/17 00:43 Glucose 310 mg/dL (70-105) H 10/18/17 00:43 POC Glucose 130 mg/dL (70-99) H 10/18/17 05:41 Calculated Osmolality 307 (280-300) H 10/18/17 00:43 Calcium 8.3 mg/dL (8.6-10.3) L 10/18/17 00:43 Iron 30 mcg/dL (65-175) L 10/17/17 06:17 % Saturation 14 % (20-55) L 10/17/17 06:17 Transferrin 154 mg/dL (203-362) L 10/17/17 06:17 Ferritin 1034 ng/mL (20-250) H 10/17/17 06:17 Alkaline Phosphatase 111 Units/L (34-104) H 10/18/17 00:43 Troponin I 0.42 ng/mL (< 0.04) H* 10/17/17 06:17 Serum Total Protein 5.6 g/dL (6.4-8.9) L 10/18/17 00:43 Albumin 3.1 g/dL (3.5-5.7) L 10/18/17 00:43 Stool Occult Blood Positive (Negative) A 10/16/17 14:10 Diabetes panel 10/18/17 10/18/17 Range/Units 00:43 00:43 Sodium 127 L D 127 L (136-145) mEq/L Potassium 5.6 H 5.6 H (3.5-5.1) mEq/L Chloride 88 L 87 L (98-107) mEq/L Carbon Dioxide 19 L 19 L (23-29) mEq/L BUN 99 H 100 H (8-23) mg/dL Creatinine 7.55 H 7.67 H (0.70-1.30) mg/dL Glucose 309 H 310 H (70-105) mg/dL Calcium 8.3 L 8.3 L (8.6-10.3) mg/dL AST 17 (13-39) Units/L ALT 15 (7-52) Units/L Alkaline Phosphatase 111 H (34-104) Units/L Albumin 3.1 L (3.5-5.7) g/dL Calcium panel 10/18/17 10/18/17 Range/Units 00:43 00:43 Calcium 8.3 L 8.3 L (8.6-10.3) mg/dL Albumin 3.1 L (3.5-5.7) g/dL Pituitary panel 10/18/17 10/18/17 Range/Units 00:43 00:43 Sodium 127 L D 127 L (136-145) mEq/L Potassium 5.6 H 5.6 H (3.5-5.1) mEq/L Chloride 88 L 87 L (98-107) mEq/L Carbon Dioxide 19 L 19 L (23-29) mEq/L BUN 99 H 100 H (8-23) mg/dL Creatinine 7.55 H 7.67 H (0.70-1.30) mg/dL Glucose 309 H 310 H (70-105) mg/dL Calcium 8.3 L 8.3 L (8.6-10.3) mg/dL Adrenal panel 10/18/17 10/18/17 Range/Units 00:43 00:43 Sodium 127 L D 127 L (136-145) mEq/L Potassium 5.6 H 5.6 H (3.5-5.1) mEq/L Chloride 88 L 87 L (98-107) mEq/L Carbon Dioxide 19 L 19 L (23-29) mEq/L BUN 99 H 100 H (8-23) mg/dL Creatinine 7.55 H 7.67 H (0.70-1.30) mg/dL Glucose 309 H 310 H (70-105) mg/dL Calcium 8.3 L 8.3 L (8.6-10.3) mg/dL Total Bilirubin 0.3 (0.3-1.0) mg/dL AST 17 (13-39) Units/L ALT 15 (7-52) Units/L Alkaline Phosphatase 111 H (34-104) Units/L Albumin 3.1 L (3.5-5.7) g/dL All other labs normal. - Attending Attestation I examined this patient and my medical decision-making was reviewed with the Resident Physician. I agree with the documented findings, disposition and treatment plan as described except to the extent set forth below.
[2017-10-16] MEDS ORDERED: Dextrose Gel 15 GM/37.5 ML TUBE PO ONE (18:48)
[2017-10-16 19:15] LABS: Hematocrit 22.6 % (37.5-50.1); Hemoglobin 7.5 g/dL (12.9-16.9)
[2017-10-16 19:22] LABS: INR 1.3; Prothrombin Time 13.7 Seconds (9.4-12.1)
[2017-10-16 19:25] LABS: Activated Partial Thrombo Time 49.2 Seconds (26.0-36.0)
[2017-10-16 19:34] LABS: Albumin 3.2 g/dL (3.5-5.7); Albumin/Globulin Ratio 1.2 (1.1-2.2); Bilirubin,Indirect 0.3 mg/dL (0.0-1.2); Bilirubin,Total 0.3 mg/dL (0.3-1.0); Globulin 2.6 g/dL (2.4-3.5); Total Protein 5.8 g/dL (6.4-8.9)
[2017-10-16 19:35] LABS: Calcium 8.8 mg/dL (8.6-10.3); Potassium 4.4 mEq/L (3.5-5.1)
[2017-10-16] MEDS: Pantoprazole 40 MG in 0.9 % Sodium Chloride Mini Bag 100 ML IVC SCH (19:56)
[2017-10-16] MEDS: amLODIPine 5 MG TABLET PO SCH (19:57)
[2017-10-16] MEDS: Insulin LISPRO 300 UNITS/3 ML VIAL SQ SCH (19:57)
[2017-10-16] MEDS: Sucralfate 1 GM TABLET PO SCH ×2 (19:57→23:02)
[2017-10-16] MEDS: tiZANidine 4 MG TABLET PO SCH ×2 (19:57→22:03)
--- NOTE | 2017-10-16 20:05 | Event Note ---
Date of Encounter: 10/16/17 Time of Encounter: 19:59 The patient trop is 0.45, hx of tropemia. The patient reportedly denies chest pain. Vitals are stable. EKG ordered at this time. Foot pumps continuously, hgb only 7.5 at this time. Discussed this case with Dr. De Anda.
[2017-10-17] MEDS: Insulin LISPRO 300 UNITS/3 ML VIAL SQ SCH ×4 (00:08→16:15)
[2017-10-17] MEDS: Pantoprazole 40 MG in 0.9 % Sodium Chloride Mini Bag 100 ML IVC SCH ×6 (00:09→22:27)
[2017-10-17 00:56] LABS: Hematocrit 25.2 % (37.5-50.1); Hemoglobin 8.3 g/dL (12.9-16.9)
[2017-10-17] MEDS: Levothyroxine 25 MCG TABLET PO SCH (05:37)
[2017-10-17 07:23] LABS: Basophils % 0.3 %; Eosinophils # 0.2 K/mcL (0.0-0.6); Eosinophils % 2.5 %; Hematocrit 25.6 % (37.5-50.1); Hemoglobin 8.6 g/dL (12.9-16.9); Immature Granulocytes % 0.6 % (0-4); Lymphocytes # 0.9 K/mcL (0.6-4.6); Lymphocytes % 12.6 %; Mean Corpuscular HGB Conc 33.6 g/dL (31.6-35.5); Mean Corpuscular Hemoglobin 31.3 pg (28.0-33.3); Mean Corpuscular Volume 93.1 fL (83.0-100.0); Mean Platelet Volume 10.5 fL (9.4-12.4); Monocytes # 0.7 K/mcL (0.0-1.3); Monocytes % 9.3 %; Neutrophils # 5.3 K/mcL (1.6-8.9); Platelet Count 203 K/mcL (140-400); Red Blood Count 2.75 M/mcL (4.19-5.50); Red Cell Distribution Width 17.6 % (11.5-14.5); Segmented Neutrophils % 74.7 %
[2017-10-17 07:38] LABS: Potassium 5.3 mEq/L (3.5-5.1)
[2017-10-17 07:43] LABS: Troponin I 0.42 ng/mL (< 0.04)
--- NOTE | 2017-10-17 08:01 | Nephrology Consult Note ---
Date of Encounter: 10/17/17 Time of Encounter: 07:58 Assessment and Plan (1) ESRD (end stage renal disease) Current Visit: Yes Status: Chronic Patient has end-stage renal disease related to diabetes and hypertension. He will continue to receive dialysis every Monday. He presents with a clinical picture of acute GI bleeding likely related to taking a large amount of aspirin because of neck pain. He will require an EGD and possible colonoscopy. His hemoglobin will be monitored. We will also check his iron studies and place him on [facility]. (2) NSTEMI (non-ST elevated myocardial infarction) Current Visit: No Status: Acute (3) Type 2 diabetes mellitus with diabetic chronic kidney disease Current Visit: No Status: Acute Qualifiers: Diabetes mellitus assisted insulin use: with terminal press operator use Chronic kidney disease stage: on chronic dialysis Qualified Code(s): E11.22 - Type 2 diabetes mellitus with diabetic chronic kidney disease; N18.6 - End stage renal disease; Z79.4 - roasterman (current) use of insulin; Z99.2 - Dependence on renal dialysis (4) GI bleed Current Visit: Yes Status: Acute Qualifiers: GI bleed type/associated pathology: melena Qualified Code(s): K92.1 - Melena History of Present Illness - History of Present Illness This is a 72-year-old male who is followed as an outpatient for end-stage renal disease related to hypertension and diabetes. Patient dialyzes in [place] every Monday. His last dialysis was yesterday. Patient reports a 2 week history of neck pain. Over the past few days he says he has taken a bottle of aspirin. He subsequently went to the [place] urgent care yesterday. They robert some blood and found his hemoglobin was 6.2. Patient states he did notice some melena yesterday for the first time. He denies any abdominal pain, heartburn, indigestion, nausea, diarrhea, or vomiting. Patient reports she still having neck pain. His troponin is elevated at 0.46. Stool guaiacs are positive. Hemoglobin is 8.6 following transfusion of 2 units of packed rib blood cells. Potassium is stable at 4.4. Vital signs are stable. Past Med Surg Social Fam HX - Past Medical History Medical history: CHF, COPD, diabetes, dialysis, hypertension, myocardial infarction, renal disease Psychiatric history: no psych history - Past Surgical History Surgical History: other Additional surgical history: Stent placement - Social History Smoking Status: Current every day smoker Packs per day: 1/2 Smokeless Tobacco Status: No Alcohol use: none Drug use: none - Family History Mother Living Status: Hx Family Cardiac Disorders: Yes Hx Family Respiratory Disorders: No Father Living Status: Hx Family Cardiac Disorders: No Hx Family Respiratory Disorders: No Brother Hx Family Cardiac Disorders: Yes Hx Family Neuromuscular Disorders: Yes Medications and Allergies Aspirin [Lo-Dose Aspirin EC] 81 mg PO DAILY 01/29/17 [History] Cinacalcet HCl [Sensipar] 60 mg PO DAILY 01/29/17 [History] Insulin Glargine,Hum.rec.anlog [Lantus Solostar] 16 - 18 unit SQ HS 01/29/17 [ History] Renal Vitamin [Renal Caps Softgel] 1 mg PO DAILY 01/29/17 [History] Sevelamer [Renvela] 2,400 mg PO TIDWM 01/29/17 [History] amLODIPine [Norvasc] 5 mg PO BID 01/29/17 [History] hydrALAZINE [HydrALAZINE] 25 mg PO QID 01/29/17 [History] Glucagon,Human Recombinant [Glucagon Emergency Kit] 1 mg IJ AD PRN 01/30/17 [ History] Atorvastatin [Lipitor] 40 mg PO HS #30 tablet 02/01/17 [Rx] Clopidogrel [Plavix] 75 mg PO DAILY #30 tablet 02/01/17 [Rx] Lisinopril [Zestril] 10 mg PO DAILY #30 tablet 02/02/17 [Rx] Carvedilol 12.5 mg PO BID 05/22/17 [History] Insulin ASPART [Novolog Flexpen] 2 - 4 unit SQ TIDWM 05/22/17 [History] Lactobacillus Combination No.8 [Adult Probiotic] 1 cap PO DAILY 05/22/17 [ History] Levothyroxine [Synthroid] 25 mcg PO 0630 #30 tablet 05/24/17 [Rx] Losartan [Cozaar] 50 mg PO BID 07/06/17 [History] raNITIdine HCl [Zantac] 150 mg PO DAILY 10/16/17 [History] 3 Allergy/AdvReac Type Severity Reaction Status Date / Time No Known Allergies Allergy Verified 10/16/17 16:04 Review of Systems Constitutional: as per HPI Eyes: bilateral: blurred vision (patient denies), diplopia (patient denies) Nose, mouth and throat: no dizziness, no headache(s) Cardiovascular: dyspnea on exertion, no chest pain, no palpitations Respiratory: dyspnea on exertion Gastrointestinal: melena, no abdominal pain, no change in bowel habits Musculoskeletal: as per HPI Integumentary: no hirsutism, no striae Neurological: as per HPI Psychiatric: no depression, no difficulty concentrating Endocrine: as per HPI Hematologic/Lymphatic: no easy bruising, no lymphadenopathy Exam - Vital Signs Vital signs: Initial Vital Signs Temp Pulse Resp BP Pulse Ox 97.6 F 96 18 159/72 96 10/16/17 14:12 10/16/17 14:12 10/16/17 14:12 10/16/17 14:12 10/16/17 14:12 Vital Signs - Last 8 Hours Temp Pulse Resp BP Pulse Ox 10/17/17 06:51 98.8 F 69 18 155/69 94 10/17/17 04:54 98.2 F 79 16 166/78 92 Intake and Output 10/16/17 10/16/17 10/17/17 15:59 23:59 07:59 Intake Total 700 / 700 200 / 200 Balance 700 / 700 200 / 200 Intake: IV Fluids 200 / 200 Protonix 40 MG In 0.9 % Sodium 200 / 200 Chloride (Mini-Bag +) 100 ML @ 20 mls/hr IVC .Q5H [facility] Rx#: [id number] Blood Product 700 / 700 Rbcs Leuko Poor As-1 Unit 350 / 350 [id number] Rbcs Leuko Poor As-1 Unit 350 / 350 [id number] Other: Blood Glucose* 67 97 - General Appearance Exam: Patient is alert and oriented. He is in no acute distress. Lungs managed breath sounds otherwise clear. Heart regular rate and rhythm with a 2/6 talk ejection murmur. Abdomen shows normal bowel sounds bruits messes him medically or tenderness. Extremities show no peripheral edema. There is a functioning AV fistula in the left upper extremity. Results - Lab Results 10/17/17 06:17 10/17/17 06:17 Most recent lab results Calcium 9.0 mg/dL (8.6-10.3) 10/17/17 06:17 Consult Discharge Plan - Plan [facility]errals: [facility] [Primary Care Provider] -
[2017-10-17] MEDS ORDERED: Darbepoetin 150 MCG/0.3 ML SYRINGE SQ SCH (08:15)
[2017-10-17] MEDS ORDERED: Polyethylene Glycol 3350 255 GM POWDER PO ONE (09:05)
[2017-10-17] MEDS: Aspirin Enteric Coated 81 MG Tablet PO SCH (09:24)
[2017-10-17] MEDS: amLODIPine 5 MG TABLET PO SCH ×2 (09:24→20:10)
[2017-10-17] MEDS: Sucralfate 1 GM TABLET PO SCH ×4 (09:24→20:09)
[2017-10-17] MEDS: tiZANidine 4 MG TABLET PO SCH ×2 (09:25→20:10)
--- NOTE | 2017-10-17 09:33 | General Surgery Progress Note ---
Date of Encounter: 10/17/17 Time of Encounter: 09:31 - Assessment and Plan (1) GI bleed Current Visit: Yes Status: Acute One episode of melena, hemoccult positive in ED. Hgb up to 8.6 (previous 6.2) after 2 U RBCs yesterday. No prior EGD or Colonscopy Likely secondary to taking large amounts of aspirin. Vital signs are stable PLAN: EGD/Colonoscopy tomorrow AM Hold ASA Continue Protonix and Carafate 1gm QID Clear liquid diet today - NPO except meds after midnight Qualifiers: GI bleed type/associated pathology: melena Qualified Code(s): K92.1 - Melena (2) Anemia Current Visit: Yes Status: Acute Acute on Chronic Anemia of CKD - worsened by aspirin use Plan as above Qualifiers: Anemia type: other cause Other causes of anemia: other cause, not classified Qualified Code(s): D64.89 - Other specified anemias (3) ESRD (end stage renal disease) Current Visit: Yes Status: Chronic (4) CAD (coronary artery disease) Current Visit: Yes Status: Chronic s/p stent placement in Jan 2017 - on ASA and Plavix. Hold ASA Qualifiers: Coronary Disease-Associated Artery/Lesion type: [place] artery [place] vs. transplanted heart: [place] heart Associated angina: without angina Qualified Code(s): I25.10 - Atherosclerotic heart disease of [place] coronary artery without angina pectoris Subjective Patient reports: no new complaints, afebrile Narrative: Patient reports he is doing well this AM. No new complaints. Still with neck pain. Denies abdominal pain, nausea, or vomiting. No BM overnight. No light- headedness or dizziness. Objective Vital Signs - Last 8 Hours Temp Pulse Resp BP Pulse Ox 10/17/17 06:51 98.8 F 69 18 155/69 94 10/17/17 04:54 98.2 F 79 16 166/78 92 Intake and Output 10/16/17 10/17/17 10/17/17 23:59 07:59 15:59 Intake Total 700 / 700 200 / 200 0 / 0 Balance 700 / 700 200 / 200 0 / 0 Intake: IV Fluids 200 / 200 Protonix 40 MG In 0.9 % Sodium 200 / 200 Chloride (Mini-Bag +) 100 ML @ 20 mls/hr IVC .Q5H [facility] Rx#: [id number] Oral 0 / 0 Blood Product 700 / 700 Rbcs Leuko Poor As-1 Unit 350 / 350 [id number] Rbcs Leuko Poor As-1 Unit 350 / 350 [id number] Other: Meal npo Percent of Meal Consumed 0% Blood Glucose* 67 97 - General physical appearance no distress, cachectic - Eyes normal ocular movement - Respiratory normal expansion, normal respiratory effort, clear to percussion, clear to auscultation - Cardiovascular Cardiovascular exam: Present: RRR - Abdomen Abdomen: Present: bowel sounds present, soft, non tender - Integumentary no rash, no growths, no abnormal pigmentation - Neurologic normal coordination, normal sensation - Musculoskeletal normal gait, normal posture - Psychiatric oriented to time, oriented to person, oriented to place, speech is normal, memory intact - Labs 10/17/17 06:17 10/17/17 06:17 Diabetes panel 10/16/17 10/16/17 10/17/17 Range/Units 18:53 18:53 06:17 Sodium 137 136 (136-145) mEq/L Potassium 4.4 5.3 H (3.5-5.1) mEq/L Chloride 93 L 94 L (98-107) mEq/L Carbon Dioxide 24 19 L (23-29) mEq/L BUN 88 H 90 H (8-23) mg/dL Creatinine 6.40 H 7.05 H (0.70-1.30) mg/dL Glucose 61 L 81 (70-105) mg/dL Calcium 8.8 9.0 (8.6-10.3) mg/dL AST 20 (13-39) Units/L ALT 16 (7-52) Units/L Alkaline Phosphatase 112 H (34-104) Units/L Albumin 3.2 L (3.5-5.7) g/dL Calcium panel 10/16/17 10/16/17 10/17/17 Range/Units 18:53 18:53 06:17 Calcium 8.8 9.0 (8.6-10.3) mg/dL Albumin 3.2 L (3.5-5.7) g/dL Pituitary panel 10/16/17 10/17/17 Range/Units 18:53 06:17 Sodium 137 136 (136-145) mEq/L Potassium 4.4 5.3 H (3.5-5.1) mEq/L Chloride 93 L 94 L (98-107) mEq/L Carbon Dioxide 24 19 L (23-29) mEq/L BUN 88 H 90 H (8-23) mg/dL Creatinine 6.40 H 7.05 H (0.70-1.30) mg/dL Glucose 61 L 81 (70-105) mg/dL Calcium 8.8 9.0 (8.6-10.3) mg/dL Adrenal panel 10/16/17 10/16/17 10/17/17 Range/Units 18:53 18:53 06:17 Sodium 137 136 (136-145) mEq/L Potassium 4.4 5.3 H (3.5-5.1) mEq/L Chloride 93 L 94 L (98-107) mEq/L Carbon Dioxide 24 19 L (23-29) mEq/L BUN 88 H 90 H (8-23) mg/dL Creatinine 6.40 H 7.05 H (0.70-1.30) mg/dL Glucose 61 L 81 (70-105) mg/dL Calcium 8.8 9.0 (8.6-10.3) mg/dL Total Bilirubin 0.3 (0.3-1.0) mg/dL AST 20 (13-39) Units/L ALT 16 (7-52) Units/L Alkaline Phosphatase 112 H (34-104) Units/L Albumin 3.2 L (3.5-5.7) g/dL Consult Discharge Plan - Plan [facility]errals: [facility] [Primary Care Provider] -
--- NOTE | 2017-10-17 09:37 | Internal Med Progress Note ---
Date of Encounter: 10/17/17 Time of Encounter: 09:35 - Assessment and plan (1) Melena Current Visit: Yes Status: Acute Assessment and plan: s/p 2 pRBC ordered in the ED. Continue protonix drip. Monitor hemoglobin. Plan for EGD in am (2) CAD (coronary artery disease) Current Visit: Yes Status: Chronic Assessment and plan: NSTEMI s/p stent 01/2017. Continue aspirin and plavix per cardiology recs Qualifiers: Coronary Disease-Associated Artery/Lesion type: [place] artery [place] vs. transplanted heart: [place] heart Associated angina: without angina Qualified Code(s): I25.10 - Atherosclerotic heart disease of [place] coronary artery without angina pectoris (3) ESRD (end stage renal disease) Current Visit: Yes Status: Chronic Assessment and plan: MWF HD with Dr Levine (4) Type 2 diabetes mellitus with diabetic chronic kidney disease Current Visit: No Status: Acute Assessment and plan: ISS for now Qualifiers: Diabetes mellitus senior living insulin use: with senior living use Chronic kidney disease stage: on chronic dialysis Qualified Code(s): E11.22 - Type 2 diabetes mellitus with diabetic chronic kidney disease; N18.6 - End stage renal disease; Z79.4 - long term care phlebotomist (current) use of insulin; Z99.2 - Dependence on renal dialysis (5) Anemia Current Visit: Yes Status: Acute Assessment and plan: suspect 2/2 to GIB above Qualifiers: Anemia type: other cause Other causes of anemia: other cause, not classified Qualified Code(s): D64.89 - Other specified anemias (6) Neck pain Current Visit: Yes Status: Acute Assessment and plan: suspect MSK neck strain trial of anti spasmodic zanaflex - Time Spent With Patient Total time spent is greater than 50% in coordination of care (as documented) at patient's floor/unit and/or counseling patient: - Subjective Interval history: No acute events overnight - Constitutional Vitals: Temp Pulse Resp BP Pulse Ox 98.8 F 69 18 155/69 94 10/17/17 06:51 10/17/17 06:51 10/17/17 06:51 10/17/17 06:51 10/17/17 06:51 - Head Head exam: Present: atraumatic, normocephalic - Eye Eye exam: Present: PERRL, conjuntiva pink, sclera anicteric Pupils: Present: PERRL - Neck Neck exam general surgery: Present: supple, trachea midline. Absent: lymphadenopathy - Respiratory Respiratory exam: Present: CTAB. Absent: accessory muscle use, rales, rhonchi, wheezes - Cardiovascular Cardiovascular exam: Present: RRR, +S1, +S2. Absent: diastolic murmur, gallop, rubs, systolic murmur - GI/Abdominal GI/Abdominal exam: Present: normal bowel sounds, soft, no peritoneal signs. Absent: distended, tenderness - Extremities Exam Extremities exam: Present: warm, radial pulses palpable and symmetrical. Absent : calf tenderness, cyanotic, pedal edema - Neurological Exam Neurological exam: Present: CN II-XII intact, oriented X3, no focal deficits. Absent: pronater drift, facial droop, speech deficit - Skin Skin exam: Present: dry, intact Internal Medicine: Result - Labs CBC & Chem 7: 10/17/17 12:01 10/17/17 06:17 Labs: Short CBC 10/16/17 10/17/17 10/17/17 Range/Units 18:53 00:36 06:17 WBC 7.1 (4.3-11.1) K/mcL Hgb 7.5 L 8.3 L 8.6 L (12.9-16.9) g/dL Hct 22.6 L 25.2 L 25.6 L (37.5-50.1) % Plt Count 203 (140-400) K/mcL Neutrophils # 5.3 (1.6-8.9) K/mcL BMP 10/16/17 10/17/17 18:53 06:17 Sodium 137 136 Potassium 4.4 5.3 H Chloride 93 L 94 L Carbon Dioxide 24 19 L BUN 88 H 90 H Creatinine 6.40 H 7.05 H Glucose 61 L 81 Calcium 8.8 9.0 Cardiac Enzymes 10/16/17 10/17/17 10/17/17 Range/Units 18:53 00:36 06:17 Troponin I 0.45 H* 0.46 H* 0.42 H* (< 0.04) ng/mL Liver Function 10/16/17 Range/Units 18:53 Total Bilirubin 0.3 (0.3-1.0) mg/dL Direct Bilirubin 0.0 (0.0-0.2) mg/dL AST 20 (13-39) Units/L ALT 16 (7-52) Units/L Alkaline Phosphatase 112 H (34-104) Units/L Albumin 3.2 L (3.5-5.7) g/dL - ABG Interpretation ABG results: PT/INR, D-dimer PT 13.7 Seconds (9.4-12.1) H 10/16/17 18:53 Consult Discharge Plan - Plan [facility]errals: [facility] [Primary Care Provider] -
--- NOTE | 2017-10-17 10:36 | Cardiology Consult Note ---
Date of Encounter: 10/17/17 Time of Encounter: 10:34 Assessment and Plan (1) Elevated troponin Current Visit: No Status: Acute Troponin elevation up to 0.45 and trending down in the setting of acute GI bleed and ESRD. EKG shows NSR with diffuse ST depression and T wave changes in the inferolateral leads that are not significantly changed from baseline EKG. Suspect demand ischemia. Denies chest pain or dyspnea. As of note his anginal equivalent is dyspnea. C/o muscle skeletal neck pain. Recommend checking TTE to re-evaluate LV function as you are doing. Continue asa , plavix, statin, and bb. Keep Hgb above 8.0 with known CAD. No heparin GTT with concern for GI bleed. (2) CAD (coronary artery disease) Current Visit: Yes Status: Chronic H/o IA and PCI to the mLAD 01/2017. INFORMATION OFFICER of the RCA and mild non-obstructive CAD remaining. TTE 01/2017- EF 40-45%. No significant valvular disease. Continue DAPT (asa, plavix) uninterrupted for one year post PCI. Patient is undergoing EGD/colonoscopy tomorrow to assess bleeding. Continue lipitor and carvedilol. Qualifiers: Coronary Disease-Associated Artery/Lesion type: [place] artery [place] vs. transplanted heart: [place] heart Associated angina: without angina Qualified Code(s): I25.10 - Atherosclerotic heart disease of [place] coronary artery without angina pectoris (3) GI bleed Current Visit: Yes Status: Acute Reports blood in his stool and positive occult stool yesterday. S/p 2 units PRBC. Patient is undergoing EGD/colonoscopy tomorrow. Qualifiers: GI bleed type/associated pathology: melena Qualified Code(s): K92.1 - Melena (4) Neck pain Current Visit: Yes Status: Acute Appears to have experienced muscle skeletal pain after sleeping on hard surface. Discussion w patient/family: The assessment and plan as outlined above was discussed with the patient and/or family members who expressed understanding and agreement. All questions were answered. Thank you for involving us in the care of your patient. Please call with any questions. History of Present Illness Consult date: 10/17/17 Requesting physician: Paramjit Magaña Consult reason: elevated troponin Chief complaint: neck pain History of present illness: Mr. Gallo is a 72 year old male with past medical history of IA and PCI to the mLAD 01/2017, GI bleed, ESRD on dialysis, and DM type II who [place] with the c/o neck pain after falling asleep on a outdoor swing. He reports the pain was severe and minimized the movement of his next. His pain was increased when he woke up in the morning. He was given IM tordal at the [facility] with relief. Due to abnormal lab work showing the patient had severe anemia he was transferred to [facility] for evaluation. He does report having blood in his stool yesterday and black tarry stools at times. He was scheduled to have EGD colonoscopy in January when he was able to stop his plavix. He was taking increased amount asa at home for his neck pain. Cardiology is consulted for elevated troponin up to 0.45. He denies chest pain or SOB. Admits to occasional lightheadedness with standing. He was seen earlier this year with troponin elevation up to 1.26 in the setting of anemia. Past Med Surg Social Fam HX - Past Medical History Medical history: cardiomyopathy, CHF, COPD, coronary artery disease, diabetes, dialysis, hypertension, myocardial infarction, renal disease Psychiatric history: no psych history - Past Surgical History Surgical History: other Additional surgical history: Stent placement - Social History Smoking Status: Current every day smoker Packs per day: 1/2 Smokeless Tobacco Status: No Alcohol use: none Drug use: none - Family History Mother Living Status: Hx Family Cardiac Disorders: Yes Hx Family Respiratory Disorders: No Father Living Status: Hx Family Cardiac Disorders: No Hx Family Respiratory Disorders: No Brother Hx Family Cardiac Disorders: Yes Hx Family Neuromuscular Disorders: Yes Medications and Allergies Aspirin [Lo-Dose Aspirin EC] 81 mg PO DAILY 01/29/17 [History] Cinacalcet HCl [Sensipar] 60 mg PO DAILY 01/29/17 [History] Insulin Glargine,Hum.rec.anlog [Lantus Solostar] 16 - 18 unit SQ HS 01/29/17 [ History] Renal Vitamin [Renal Caps Softgel] 1 mg PO DAILY 01/29/17 [History] Sevelamer [Renvela] 2,400 mg PO TIDWM 01/29/17 [History] amLODIPine [Norvasc] 5 mg PO BID 01/29/17 [History] hydrALAZINE [HydrALAZINE] 25 mg PO QID 01/29/17 [History] Glucagon,Human Recombinant [Glucagon Emergency Kit] 1 mg IJ AD PRN 01/30/17 [ History] Atorvastatin [Lipitor] 40 mg PO HS #30 tablet 02/01/17 [Rx] Clopidogrel [Plavix] 75 mg PO DAILY #30 tablet 02/01/17 [Rx] Lisinopril [Zestril] 10 mg PO DAILY #30 tablet 02/02/17 [Rx] Carvedilol 12.5 mg PO BID 05/22/17 [History] Insulin ASPART [Novolog Flexpen] 2 - 4 unit SQ TIDWM 05/22/17 [History] Lactobacillus Combination No.8 [Adult Probiotic] 1 cap PO DAILY 05/22/17 [ History] Levothyroxine [Synthroid] 25 mcg PO 0630 #30 tablet 05/24/17 [Rx] Losartan [Cozaar] 50 mg PO BID 07/06/17 [History] raNITIdine HCl [Zantac] 150 mg PO DAILY 10/16/17 [History] 3 Allergy/AdvReac Type Severity Reaction Status Date / Time No Known Allergies Allergy Verified 10/16/17 16:04 All Systems Review: The remainder of the systems were reviewed and are negative Physical Examination Vital Signs, Last 4 Hours Temp Pulse Resp BP Pulse Ox 10/17/17 09:40 94 10/17/17 06:51 98.8 F 69 18 155/69 94 General: Conversant, No Apparent Distress HEENT: Atraumatic, Normocephaly, Mucus Membranes Moist Neck: No JVD, Other (Bilateral caroti bruit on auscultation) Cardiac: Reg Rate and Rhythm, Normal S1 and S2, No Murmur Lungs: Normal Breath Sounds, No Wheeze, Rales, Rhonchi Neuro: Alert and responsive, No focal deficits noted Abdomen: Soft, Non-Tender Skin: No rashes noted on visualized skin, Other (Brownish discoloration of skin noted. ) Musculoskeletal: No Chest Wall Tenderness Extremities: No Clubbing, No Cyanosis, No Edema, Normal Pulses Results 10/17/17 06:17 10/17/17 06:17 Lab Results 10/16/17 10/16/17 10/16/17 18:53 18:53 18:53 WBC Hgb 7.5 L Hct 22.6 L Plt Count INR APTT Sodium 137 Potassium 4.4 Chloride 93 L Carbon Dioxide 24 BUN 88 H Creatinine 6.40 H Glucose 61 L Calcium 8.8 Total Bilirubin AST ALT Alkaline Phosphatase Troponin I 0.45 H* 10/16/17 10/16/17 10/17/17 18:53 18:53 00:36 WBC Hgb Hct Plt Count INR 1.3 APTT 49.2 H Sodium Potassium Chloride Carbon Dioxide BUN Creatinine Glucose Calcium Total Bilirubin 0.3 AST 20 ALT 16 Alkaline Phosphatase 112 H Troponin I 0.46 H* 10/17/17 10/17/17 10/17/17 00:36 06:17 06:17 WBC 7.1 Hgb 8.3 L 8.6 L Hct 25.2 L 25.6 L Plt Count 203 INR APTT Sodium 136 Potassium 5.3 H Chloride 94 L Carbon Dioxide 19 L BUN 90 H Creatinine 7.05 H Glucose 81 Calcium 9.0 Total Bilirubin AST ALT Alkaline Phosphatase Troponin I 10/17/17 06:17 WBC Hgb Hct Plt Count INR APTT Sodium Potassium Chloride Carbon Dioxide BUN Creatinine Glucose Calcium Total Bilirubin AST ALT Alkaline Phosphatase Troponin I 0.42 H* - Imaging and Cardiology Echo: report reviewed Cardiac cath: report reviewed - EKG Interpretation EKG results cardiology: personally reviewed Consult Discharge Plan - Plan [facility]: [facility] [Primary Care Provider] -
[2017-10-17 12:31] LABS: Hematocrit 25.5 % (37.5-50.1); Hemoglobin 8.3 g/dL (12.9-16.9)
[2017-10-17] MEDS: traMADol 50 MG TABLET PO PRN ×2 (13:40→20:09)
--- NOTE | 2017-10-17 16:43 | Electrocardiograph Report ---
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
--- NOTE | 2017-10-17 16:51 | Electrocardiograph Report ---
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
[2017-10-18 01:20] LABS: Basophils % 0.6 %; Eosinophils # 0.2 K/mcL (0.0-0.6); Eosinophils % 3.4 %; Hematocrit 24.6 % (37.5-50.1); Hemoglobin 8.2 g/dL (12.9-16.9); Immature Granulocytes % 0.5 % (0-4); Lymphocytes # 0.8 K/mcL (0.6-4.6); Lymphocytes % 12.6 %; Mean Corpuscular HGB Conc 33.3 g/dL (31.6-35.5); Mean Corpuscular Hemoglobin 31.2 pg (28.0-33.3); Mean Corpuscular Volume 93.5 fL (83.0-100.0); Mean Platelet Volume 10.5 fL (9.4-12.4); Monocytes # 0.7 K/mcL (0.0-1.3); Monocytes % 10.9 %; Neutrophils # 4.5 K/mcL (1.6-8.9); Platelet Count 200 K/mcL (140-400); Red Blood Count 2.63 M/mcL (4.19-5.50); Red Cell Distribution Width 17.5 % (11.5-14.5)
[2017-10-18 01:22] LABS: Hematocrit 24.4 % (37.5-50.1)
[2017-10-18] MEDS: Insulin LISPRO 300 UNITS/3 ML VIAL SQ SCH ×5 (01:36→23:52)
[2017-10-18 01:42] LABS: Calcium 8.3 mg/dL (8.6-10.3); Potassium 5.6 mEq/L (3.5-5.1)
[2017-10-18 01:43] LABS: Albumin 3.1 g/dL (3.5-5.7); Albumin/Globulin Ratio 1.2 (1.1-2.2); Bilirubin,Total 0.3 mg/dL (0.3-1.0); Calcium 8.3 mg/dL (8.6-10.3); Globulin 2.5 g/dL (2.4-3.5); Potassium 5.6 mEq/L (3.5-5.1); Total Protein 5.6 g/dL (6.4-8.9)
[2017-10-18] MEDS: traMADol 50 MG TABLET PO PRN ×3 (02:09→21:38)
[2017-10-18] MEDS: Pantoprazole 40 MG in 0.9 % Sodium Chloride Mini Bag 100 ML IVC SCH ×4 (05:01→17:34)
[2017-10-18] MEDS: Levothyroxine 25 MCG TABLET PO SCH (05:02)
[2017-10-18] MEDS ORDERED: Propofol 500 MG/50 ML INFUS..BTL ONE (06:34)
[2017-10-18] MEDS ORDERED: Lidocaine -MPF 2% 2 ML VIAL ONE (06:34)
[2017-10-18 06:53] LABS: Hematocrit 24.2 % (37.5-50.1); Hemoglobin 8.2 g/dL (12.9-16.9)
--- NOTE | 2017-10-18 07:20 | Anesthesia Evaluation PreOp ---
Date of Encounter: 10/18/17 Time of Encounter: 07:17 - Past History Planned Operation: EGD/Colonoscopy Cardiac History: [place], CHF, HTN, Hyperlipidemia, Cardiac Stent (PCI with [facility]MAN in 2016.) Pulmonary History: Smoker, Pack/yr (1/2 ppd), COPD SALES ACCOUNT DIRECTOR History: Denies Any Significant HX Other Medical History: Renal (ESRD on Dialysis MWF), Diabetes Type II, Other ( Transfused 2 units PRBC on 10/16/17) Anesthesia History: No Prior Anesthetic Complications, Past Anesthesia (Cardiac Stent 01/29, Left heart Cath, AV fistula) Alcohol Use: none Drug use: none Medications and Allergies Aspirin [Lo-Dose Aspirin EC] 81 mg PO DAILY 01/29/17 [History] Cinacalcet HCl [Sensipar] 60 mg PO DAILY 01/29/17 [History] Insulin Glargine,Hum.rec.anlog [Lantus Solostar] 16 - 18 unit SQ HS 01/29/17 [ History] Renal Vitamin [Renal Caps Softgel] 1 mg PO DAILY 01/29/17 [History] Sevelamer [Renvela] 2,400 mg PO TIDWM 01/29/17 [History] amLODIPine [Norvasc] 5 mg PO BID 01/29/17 [History] hydrALAZINE [HydrALAZINE] 25 mg PO QID 01/29/17 [History] Glucagon,Human Recombinant [Glucagon Emergency Kit] 1 mg IJ AD PRN 01/30/17 [ History] Atorvastatin [Lipitor] 40 mg PO HS #30 tablet 02/01/17 [Rx] Clopidogrel [Plavix] 75 mg PO DAILY #30 tablet 02/01/17 [Rx] Lisinopril [Zestril] 10 mg PO DAILY #30 tablet 02/02/17 [Rx] Carvedilol 12.5 mg PO BID 05/22/17 [History] Insulin ASPART [Novolog Flexpen] 2 - 4 unit SQ TIDWM 05/22/17 [History] Lactobacillus Combination No.8 [Adult Probiotic] 1 cap PO DAILY 05/22/17 [ History] Levothyroxine [Synthroid] 25 mcg PO 0630 #30 tablet 05/24/17 [Rx] Losartan [Cozaar] 50 mg PO BID 07/06/17 [History] raNITIdine HCl [Zantac] 150 mg PO DAILY 10/16/17 [History] 3 Allergy/AdvReac Type Severity Reaction Status Date / Time No Known Allergies Allergy Verified 10/16/17 16:04 - Meds/Allergy Pre-op Review Medications Reviewed: Yes Allergies Reviewed: Yes Beta Blockers on Current Med List: Yes If Beta Blockers taken, Date/Time (Last Dose taken): 16:15 10/17/2017 Anesthesia Results - Labs 10/18/17 06:20 10/18/17 00:43 Echocardiogram Name: Jarred Gallo Date of Study: 10/17/2017 Indications: Elevated Troponin echocardiogram Impressions: LVEF 45%. LV segmental wall motion similar in comparison to echo 01/30/2017. Moderate left ventricular diastolic dysfunction. Normal right ventricular structure and function. Mild mitral regurgitation. Mild to moderate tricuspid regurgitation. Moderate to severe pulmonary hypertension. Cardiology: Continue DAPT (asa, plavix) uninterrupted for one year post PCI. Patient is undergoing EGD/colonoscopy tomorrow to assess bleeding. Continue lipitor and carvedilol. - Imaging EKG: report reviewed (SINUS RHYTHM INFERIOR ST-T CHANGES POSSIBLY DUE TO ISCHEMIA ANTEROALTERAL ST-T CHANGES, POSSIBLE DUE TO ISCHEMIA) Anesthesia Exam Vital Signs/O2 Sat, Most Current Temp Pulse Resp BP Pulse Ox 97.4 F L 66 14 154/78 95 10/18/17 07:13 10/18/17 07:13 10/18/17 07:13 10/18/17 07:13 10/18/17 07:13 - HEENT Pupil (Motor): Pupils equal, EOMI Mallampati: II Teeth: Edentulous Oral Opening: Greater than 3 - SALES ACCOUNT DIRECTOR LOC: Oriented SALES ACCOUNT DIRECTOR Motor: Normal RUE, Normal LUE, Normal RLE, Normal LLE, Normal Face SALES ACCOUNT DIRECTOR Sensory: Normal: RUE, LUE, RLE, LLE, Face - Cardiac Rhythm: Regular Murmur: None JVD: No Carotid Bruit: No - Pulmonary Breath Sounds: bilateral Clear Respiratory Effort: Symmetrical Anesthesia Assess/Plan ASA Score: 4 Modified Gabriel Scale for Level of Consciousness: Cooperative, oriented, and tranquil Anesthetic Plan: MAC Autologous Blood: Yes Monitoring Plan: Standard Monitors Recovery Plan: Other
[2017-10-18] MEDS ORDERED: *HR* Etomidate 40 MG/20 ML VIAL IVP ONE (07:26)
[2017-10-18] MEDS ORDERED: *HR* Propofol 200 MG/20 ML VIAL IVP ONE ×2 (07:26→08:05)
[2017-10-18] MEDS: Sucralfate 1 GM TABLET PO SCH ×4 (07:43→21:38)
[2017-10-18] MEDS: tiZANidine 4 MG TABLET PO SCH ×3 (07:45→21:38)
[2017-10-18] MEDS: Aspirin Enteric Coated 81 MG Tablet PO SCH (07:59)
[2017-10-18] MEDS: amLODIPine 5 MG TABLET PO SCH ×2 (07:59→21:38)
[2017-10-18] MEDS ORDERED: EPHEDrine 50 MG/ML VIAL ONE (08:07)
[2017-10-18] MEDS ORDERED: Simethicone 40 MG/0.6 ML MLS IR ONE (08:12)
[2017-10-18] MEDS ORDERED: Tetracaine/Benzocaine/Butamben 200MG/SPRAY (100SPY/BOT) MM ONE (08:12)
[2017-10-18] MEDS ORDERED: 0.9 % Sodium Chloride 1,000 ML IVC SCH (08:15)
[2017-10-18] MEDS ORDERED: Darbepoetin 150 MCG/0.3 ML SYRINGE SQ SCH (09:00)
--- NOTE | 2017-10-18 09:01 | Internal Med Progress Note ---
Date of Encounter: 10/18/17 Time of Encounter: 09:00 - Assessment and plan (1) Melena Current Visit: Yes Status: Acute Assessment and plan: s/p 2 pRBC ordered in the ED. Continue protonix drip. Monitor hemoglobin. NPO overnight for EGD this am (2) CAD (coronary artery disease) Current Visit: Yes Status: Chronic Assessment and plan: NSTEMI s/p stent 01/2017. Continue aspirin and plavix per cardiology recs. Follow up repeat echo Qualifiers: Coronary Disease-Associated Artery/Lesion type: [place] artery [place] vs. transplanted heart: [place] heart Associated angina: without angina Qualified Code(s): I25.10 - Atherosclerotic heart disease of [place] coronary artery without angina pectoris (3) ESRD (end stage renal disease) Current Visit: Yes Status: Chronic Assessment and plan: MWF HD with Dr Levine (4) Type 2 diabetes mellitus with diabetic chronic kidney disease Current Visit: No Status: Acute Assessment and plan: ISS for now Qualifiers: Diabetes mellitus intermediate teacher insulin use: with intermediate teacher use Chronic kidney disease stage: on chronic dialysis Qualified Code(s): E11.22 - Type 2 diabetes mellitus with diabetic chronic kidney disease; N18.6 - End stage renal disease; Z79.4 - FDC (current) use of insulin; Z99.2 - Dependence on renal dialysis (5) Anemia Current Visit: Yes Status: Acute Assessment and plan: suspect 2/2 to GIB above Qualifiers: Anemia type: other cause Other causes of anemia: other cause, not classified Qualified Code(s): D64.89 - Other specified anemias (6) Neck pain Current Visit: Yes Status: Acute Assessment and plan: suspect MSK neck strain trial of anti spasmodic zanaflex - Time Spent With Patient Total time spent is greater than 50% in coordination of care (as documented) at patient's floor/unit and/or counseling patient: - Subjective Interval history: No acute events overnight - Constitutional Vitals: Temp Pulse Resp BP Pulse Ox 97.4 F L 66 14 179/67 92 10/18/17 08:32 10/18/17 08:32 10/18/17 08:32 10/18/17 08:32 10/18/17 08:32 - Head Head exam: Present: atraumatic, normocephalic - Eye Eye exam: Present: PERRL, conjuntiva pink, sclera anicteric Pupils: Present: PERRL - Neck Neck exam general surgery: Present: supple, trachea midline. Absent: lymphadenopathy - Respiratory Respiratory exam: Present: CTAB. Absent: accessory muscle use, rales, rhonchi, wheezes - Cardiovascular Cardiovascular exam: Present: RRR, +S1, +S2. Absent: diastolic murmur, gallop, rubs, systolic murmur - GI/Abdominal GI/Abdominal exam: Present: normal bowel sounds, soft, no peritoneal signs. Absent: distended, tenderness - Extremities Exam Extremities exam: Present: warm, radial pulses palpable and symmetrical. Absent : calf tenderness, cyanotic, pedal edema - Neurological Exam Neurological exam: Present: CN II-XII intact, oriented X3, no focal deficits. Absent: pronater drift, facial droop, speech deficit - Skin Skin exam: Present: dry, intact Internal Medicine: Result - Labs CBC & Chem 7: 10/18/17 06:20 10/18/17 00:43 Labs: Short CBC 10/17/17 10/17/17 10/18/17 Range/Units 12:01 17:57 00:43 WBC (4.3-11.1) K/mcL Hgb 8.3 L 8.0 L 8.0 L (12.9-16.9) g/dL Hct 25.5 L 24.0 L 24.4 L (37.5-50.1) % Plt Count (140-400) K/mcL Neutrophils # (1.6-8.9) K/mcL 10/18/17 10/18/17 Range/Units 00:43 06:20 WBC 6.3 (4.3-11.1) K/mcL Hgb 8.2 L 8.2 L (12.9-16.9) g/dL Hct 24.6 L 24.2 L (37.5-50.1) % Plt Count 200 (140-400) K/mcL Neutrophils # 4.5 (1.6-8.9) K/mcL BMP 10/18/17 10/18/17 00:43 00:43 Sodium 127 L D 127 L Potassium 5.6 H 5.6 H Chloride 88 L 87 L Carbon Dioxide 19 L 19 L BUN 99 H 100 H Creatinine 7.55 H 7.67 H Glucose 309 H 310 H Calcium 8.3 L 8.3 L Liver Function 10/18/17 Range/Units 00:43 Total Bilirubin 0.3 (0.3-1.0) mg/dL AST 17 (13-39) Units/L ALT 15 (7-52) Units/L Alkaline Phosphatase 111 H (34-104) Units/L Albumin 3.1 L (3.5-5.7) g/dL - ABG Interpretation ABG results: PT/INR, D-dimer PT 13.7 Seconds (9.4-12.1) H 10/16/17 18:53 - Impressions Impressions Echocardiogram 10/17/17 09:26 Impressions: LVEF 45%. LV segmental wall motion similar in comparison to echo 01/30/2017. Moderate left ventricular diastolic dysfunction. Normal right ventricular structure and function. Mild mitral regurgitation. Mild to moderate tricuspid regurgitation. Moderate to severe pulmonary hypertension. Left Ventricular Wall Motion: Rest Echo Findings The mid inferior wall was hypokinetic. The basal inferior wall was akinetic. All other wall segments showed normal motion. Findings: Study Quality * Technically adequate exam. ECG Findings * Normal sinus rhythm. Left Ventricle * Moderate left ventricular diastolic dysfunction. * LVEF 45%. * Normal LV chamber size and wall thickness. Right Ventricle * Normal right ventricular structure and function. Left Atrium * Severely dilated left atrium. Right Atrium * Normal right atrial size. Mitral Valve * No mitral stenosis. * Mild mitral regurgitation. * Moderate mitral annular calcification * Mildly thickened mitral valve leaflets. Aortic Valve * No aortic regurgitation. * Aortic valve not well visualized. * No aortic stenosis. Tricuspid Valve * Normal tricuspid valve structure. * Mild to moderate tricuspid regurgitation. * Estimated RA pressure is 8 mmHg. * Estimated RVSP is 59 mmHg. * Moderate to severe pulmonary hypertension. Pulmonic Valve * Pulmonic valve is not well visualized. * No pulmonic stenosis. * No pulmonic regurgitation. Pulmonary Artery * Pulmonary artery not well visualized. Aorta * Normally sized aortic root. Pericardium * There is no pericardial effusion present. Interatrial Septum * No evidence of PFO by color Doppler. IVC * The IVC is dilated. * > 50% respiratory change - VTE Documentation of Mechanical Device: Intermittent pneumatic compression device Consult Discharge Plan - Plan [facility]errals: [facility] [Primary Care Provider] - 10/24/17 12:45 pm (Please follow up as schedule...)
[2017-10-18] MEDS ORDERED: 0.9 % Sodium Chloride 250 ML IVC PRN (09:15)
[2017-10-18] MEDS ORDERED: Ferumoxytol 510 MG in 0.9 % Sodium Chloride 100 ML IVPB ONE (09:16)
--- NOTE | 2017-10-18 09:16 | Nephrology Progress Note ---
Date of Encounter: 10/18/17 Time of Encounter: 09:14 - Assessment and Plan (1) ESRD (end stage renal disease) Current Visit: Yes Status: Chronic The patient will undergo dialysis today on a 2K bath with no heparin. Iron saturation is 14% he will be given some parenteral iron. (2) NSTEMI (non-ST elevated myocardial infarction) Current Visit: No Status: Acute (3) Type 2 diabetes mellitus with diabetic chronic kidney disease Current Visit: No Status: Acute Qualifiers: Diabetes mellitus snf insulin use: with snf use Chronic kidney disease stage: on chronic dialysis Qualified Code(s): E11.22 - Type 2 diabetes mellitus with diabetic chronic kidney disease; N18.6 - End stage renal disease; Z79.4 - MCFP (current) use of insulin; Z99.2 - Dependence on renal dialysis (4) GI bleed Current Visit: Yes Status: Acute Qualifiers: GI bleed type/associated pathology: melena Qualified Code(s): K92.1 - Melena Subjective Interval history: Patient is going for endoscopy today. Hemoglobin is stable at 8.2. He will receive dialysis later today. Patient denies any abdominal symptoms. Objective - Vital Signs Vital signs: Vital Signs Temp Pulse Resp BP Pulse Ox 10/18/17 08:32 97.4 F L 66 14 179/67 92 10/18/17 07:13 97.4 F L 66 14 154/78 95 10/17/17 23:58 97.8 F 66 18 156/75 93 10/17/17 18:40 97.5 F L 68 16 133/64 93 10/17/17 15:55 97.5 F L 72 17 153/76 92 10/17/17 11:28 98.8 F 77 17 138/52 92 10/17/17 09:40 94 Intake and Output 10/17/17 10/18/17 10/18/17 23:59 07:59 15:59 Intake Total 220 / 220 100 / 100 25 / 25 Output Total 0 / 0 Balance 220 / 220 100 / 100 25 / 25 Intake: IV Fluids 200 / 200 100 / 100 Protonix 40 MG In 0.9 % Sodium 200 / 200 100 / 100 Chloride (Mini-Bag +) 100 ML @ 20 mls/hr IVC .Q5H [facility] Rx#: [id number] Oral 0 / 0 25 / 25 Other 20 / 20 Output: Urine 0 / 0 Other: Stool Size Small Stool Consistency liquid Stool Characteristics Normal for Patient Stool Color Brown Blood Glucose* 394 112 - General Appearance Exam: Patient is alert and oriented. He is in no acute distress. Lungs clear to auscultation. Heart regular rate and rhythm with a 2/6 talk ejection murmur. Abdomen is benign. There is no peripheral edema. There is a functioning AV fistula in the left upper extremity. - Lab 10/18/17 06:20 10/18/17 00:43 Most recent lab results Calcium 8.3 mg/dL (8.6-10.3) L 10/18/17 00:43 - VTE Documentation of Mechanical Device: Intermittent pneumatic compression device Consult Discharge Plan - Plan [facility]errals: [facility] [Primary Care Provider[facility] -
--- NOTE | 2017-10-18 09:40 | Event Note ---
Date of Encounter: 10/18/17 Time of Encounter: 09:37 Patient underwent EGD: no obvious ulcers, gastritis and gastric mass (small) removed and tatoo'd, biopsies of gastritis with bleeding that was stopped with two hemoclips colonoscopy: only could get to sigmoid due to significant liquid stool present with food particles, during withdrawal there were multiple polyps along the sigmoid and colon, small, not concerning for malignancy. Due to bleeding encountered during EGD and inadequate/aborted colonoscopy will keep on clears today to further flush out his colon, air contrast BE tomorrow am to ensure not missing a colon mass. If BE negative will plan on repeat colonoscopy in 2 months with a 2 day bowel prep. Will follow up in office in two weeks to go over stomach pathology and schedule outpatient colonoscopy at that time
--- NOTE | 2017-10-18 12:45 | Cardiology Progress Note ---
Date of Encounter: 10/18/17 Time of Encounter: 12:43 Assessment and Plan (1) Elevated troponin Current Visit: No Status: Acute Troponin elevation up to 0.45 and trending down in the setting of acute GI bleed and ESRD. EKG shows NSR with diffuse ST depression and T wave changes in the inferolateral leads that are not significantly changed from baseline EKG. Suspect demand ischemia. Denies chest pain or dyspnea. As of note his anginal equivalent is dyspnea. C/o muscle skeletal neck pain. TTE shows EF 45% and no significant change in wall motion abnormalities. Continue asa, plavix, statin, and bb. Keep Hgb above 8.0 with known CAD. No heparin GTT with concern for GI bleed. Cardiology will sign off. Please call with questions. (2) CAD (coronary artery disease) Current Visit: Yes Status: Chronic H/o HI and PCI to the mLAD 01/2017. [employer] CHAIR of the RCA and mild non-obstructive CAD remaining. TTE 01/2017- EF 40-45%. No significant valvular disease. Continue DAPT (asa, plavix) uninterrupted for one year post PCI. If he continues to have uncontrolled bleeding can re-visit risk verses benefit of continuing DAPT. He would be high risk for in stent thrombosis. Qualifiers: Coronary Disease-Associated Artery/Lesion type: [place] artery [place] vs. transplanted heart: [place] heart Associated angina: without angina Qualified Code(s): I25.10 - Atherosclerotic heart disease of [place] coronary artery without angina pectoris (3) GI bleed Current Visit: Yes Status: Acute Reports blood in his stool and positive occult stool. S/p 2 units PRBC. Patient underwent EGD/colonoscopy. S/p small gastric mass removal. Gastritis seen. No active bleeding. Repeat colonoscopy recommended due to incomplete bowel prep. Qualifiers: GI bleed type/associated pathology: melena Qualified Code(s): K92.1 - Melena (4) Neck pain Current Visit: Yes Status: Acute Appears to have experienced muscle skeletal pain after sleeping on hard surface. Discussion w patient/family: The assessment and plan as outlined above was discussed with the patient and/or family members who expressed understanding and agreement. All questions were answered. Thank you for involving us in the care of your patient. Please call with any questions. Subjective Principal diagnosis: GI bleed Interval history: Mr. Gallo is s/p EGD and colonoscopy today. Noted that small gastric mass was reviewed. Patient drowsy on my exam. continues to have neck soreness with positioning. Objective Vital Signs, Last 4 Hours Temp Resp BP 10/18/17 10:50 97.7 F 18 143/62 General: Other (Drowsy) HEENT: Atraumatic, Normocephaly, Mucus Membranes Moist Neck: No JVD, Normal carotid pulses Cardiac: Reg Rate and Rhythm, Normal S1 and S2, No Murmur Lungs: Normal Breath Sounds, No Wheeze, Rales, Rhonchi Neuro: Alert and responsive, No focal deficits noted Abdomen: Soft, Non-Tender Skin: No rashes noted on visualized skin, Other (Skin brown, greenish. ) Musculoskeletal: No Chest Wall Tenderness Extremities: No Clubbing, No Cyanosis, No Edema, Normal Pulses Results 10/18/17 06:20 10/18/17 00:43 Lab Results 10/17/17 10/18/17 10/18/17 17:57 00:43 00:43 WBC Hgb 8.0 L 8.0 L Hct 24.0 L 24.4 L Plt Count Sodium 127 L D Potassium 5.6 H Chloride 88 L Carbon Dioxide 19 L BUN 99 H Creatinine 7.55 H Glucose 309 H Calcium 8.3 L Total Bilirubin AST ALT Alkaline Phosphatase 10/18/17 10/18/17 10/18/17 00:43 00:43 06:20 WBC 6.3 Hgb 8.2 L 8.2 L Hct 24.6 L 24.2 L Plt Count 200 Sodium 127 L Potassium 5.6 H Chloride 87 L Carbon Dioxide 19 L BUN 100 H Creatinine 7.67 H Glucose 310 H Calcium 8.3 L Total Bilirubin 0.3 AST 17 ALT 15 Alkaline Phosphatase 111 H - Imaging and Cardiology Echo: report reviewed - EKG Interpretation EKG results cardiology: personally reviewed - VTE Documentation of Mechanical Device: Intermittent pneumatic compression device Consult Discharge Plan - Plan [facility]errals: [facility] [Primary Care Provider] - 10/24/17 12:45 pm (Please follow up as schedule...)
[2017-10-18] MEDS ORDERED: 0.9 % Sodium Chloride 1,000 ML ONE (13:25)
[2017-10-19] MEDS: Pantoprazole 40 MG in 0.9 % Sodium Chloride Mini Bag 100 ML IVC SCH ×2 (00:12→05:52)
[2017-10-19] MEDS: traMADol 50 MG TABLET PO PRN ×2 (03:38→09:26)
[2017-10-19] MEDS: Levothyroxine 25 MCG TABLET PO SCH (05:51)
[2017-10-19 05:52] LABS: Basophils % 0.2 %; Eosinophils # 0.1 K/mcL (0.0-0.6); Eosinophils % 1.2 %; Hematocrit 26.4 % (37.5-50.1); Hemoglobin 8.4 g/dL (12.9-16.9); Immature Granulocytes % 0.4 % (0-4); Lymphocytes # 0.7 K/mcL (0.6-4.6); Mean Corpuscular HGB Conc 31.8 g/dL (31.6-35.5); Mean Corpuscular Hemoglobin 30.4 pg (28.0-33.3); Mean Corpuscular Volume 95.7 fL (83.0-100.0); Monocytes # 0.8 K/mcL (0.0-1.3); Monocytes % 7.8 %; Nucleated Red Blood Cells 0.3 /100 WBC (0); Platelet Count 220 K/mcL (140-400); Red Blood Count 2.76 M/mcL (4.19-5.50); Segmented Neutrophils % 83.4 %
[2017-10-19] MEDS: Insulin LISPRO 300 UNITS/3 ML VIAL SQ SCH ×2 (05:55→12:50)
[2017-10-19 06:06] LABS: Calcium 9.1 mg/dL (8.6-10.3)
[2017-10-19] MEDS: tiZANidine 4 MG TABLET PO SCH (07:45)
[2017-10-19] MEDS: Aspirin Enteric Coated 81 MG Tablet PO SCH (07:45)
[2017-10-19] MEDS: Sucralfate 1 GM TABLET PO SCH ×2 (07:45→12:50)
[2017-10-19] MEDS: amLODIPine 5 MG TABLET PO SCH (07:45)
--- NOTE | 2017-10-19 08:08 | Internal Med Progress Note ---
Date of Encounter: 10/20/17 Time of Encounter: 08:00 - Assessment and plan (1) Melena Status: Acute Assessment and plan: s/p 2 pRBC ordered in the ED. Continue protonix drip. Monitor hemoglobin. had EGD done showing small gastric mass which was taken out and sent to pathology as well as gastritis with bleeding that was stopped with two hemoclips. Was not able to get colonoscopy done due to incomplete prep. Plan for barium enema today and outpatient colonoscopy if barium enema is negative (2) CAD (coronary artery disease) Status: Chronic Assessment and plan: NSTEMI s/p stent 01/2017. Continue aspirin and plavix per cardiology recs.No acute cardiac intervention for elevated troponins Qualifiers: Coronary Disease-Associated Artery/Lesion type: [place] artery [place] vs. transplanted heart: [place] heart Associated angina: without angina Qualified Code(s): I25.10 - Atherosclerotic heart disease of [place] coronary artery without angina pectoris (3) ESRD (end stage renal disease) Status: Chronic Assessment and plan: MWF HD with Dr Levine (4) Type 2 diabetes mellitus with diabetic chronic kidney disease Status: Acute Assessment and plan: ISS for now Qualifiers: Diabetes mellitus nursing home insulin use: with oysterman use Chronic kidney disease stage: on chronic dialysis Qualified Code(s): E11.22 - Type 2 diabetes mellitus with diabetic chronic kidney disease; N18.6 - End stage renal disease; Z79.4 - USP (current) use of insulin; Z99.2 - Dependence on renal dialysis (5) Anemia Status: Acute Assessment and plan: suspect 2/2 to GIB above Qualifiers: Anemia type: other cause Other causes of anemia: other cause, not classified Qualified Code(s): D64.89 - Other specified anemias (6) Neck pain Status: Acute Assessment and plan: suspect MSK neck strain trial of anti spasmodic zanaflex - Time Spent With Patient Total time spent is greater than 50% in coordination of care (as documented) at patient's floor/unit and/or counseling patient: - Subjective Interval history: No acute events overnight - Constitutional Vitals: Temp Pulse Resp BP Pulse Ox 98.7 F 84 16 121/51 94 10/19/17 05:06 10/19/17 05:06 10/19/17 05:06 10/19/17 05:06 10/19/17 05:06 - Head Head exam: Present: atraumatic, normocephalic - Eye Eye exam: Present: PERRL, conjuntiva pink, sclera anicteric Pupils: Present: PERRL - Neck Neck exam general surgery: Present: supple, trachea midline. Absent: lymphadenopathy - Respiratory Respiratory exam: Present: CTAB. Absent: accessory muscle use, rales, rhonchi, wheezes - Cardiovascular Cardiovascular exam: Present: RRR, +S1, +S2. Absent: diastolic murmur, gallop, rubs, systolic murmur - GI/Abdominal GI/Abdominal exam: Present: normal bowel sounds, soft, no peritoneal signs. Absent: distended, tenderness - Extremities Exam Extremities exam: Present: warm, radial pulses palpable and symmetrical. Absent : calf tenderness, cyanotic, pedal edema - Neurological Exam Neurological exam: Present: CN II-XII intact, oriented X3, no focal deficits. Absent: pronater drift, facial droop, speech deficit - Skin Skin exam: Present: dry, intact Internal Medicine: Result - Labs CBC & Chem 7: 10/19/17 05:06 10/19/17 05:06 Labs: Short CBC 10/19/17 Range/Units 05:06 WBC 9.6 D (4.3-11.1) K/mcL Hgb 8.4 L (12.9-16.9) g/dL Hct 26.4 L (37.5-50.1) % Plt Count 220 (140-400) K/mcL Neutrophils # 8.0 (1.6-8.9) K/mcL BMP 10/19/17 05:06 Sodium 137 Potassium 4.0 Chloride 93 L Carbon Dioxide 21 L BUN 57 H Creatinine 5.59 H Glucose 262 H Calcium 9.1 - ABG Interpretation ABG results: PT/INR, D-dimer PT 13.7 Seconds (9.4-12.1) H 10/16/17 18:53 - VTE Documentation of Mechanical Device: Intermittent pneumatic compression device Consult Discharge Plan - Plan Instructions: Sucralfate (By mouth), Pantoprazole (By mouth), Anemia (GEN) [facility]errals: [facility] [Primary Care Provider] - 10/24/17 12:45 pm (Please follow up as schedule...) Prescriptions: Pantoprazole Sodium [Protonix] 40 mg PO BID 30 Days #60 tablet. Sucralfate [Carafate] 1 gm PO QIDAC #90 tablet Tizanidine HCl 4 mg PO BID 30 Days #60 tablet Tramadol HCl [Ultram] 50 mg PO QID PRN 7 Days #20 tab PRN Reason: neck pain
[2017-10-19] MEDS ORDERED: Pantoprazole 40 MG VIAL IVP SCH (08:59)
--- NOTE | 2017-10-19 10:16 | Nephrology Progress Note ---
Date of Encounter: 10/19/17 Time of Encounter: 10:00 - Assessment and Plan (1) ESRD (end stage renal disease) Current Visit: Yes Status: Chronic No HD today, keeping MWF schedule. Subjective Principal diagnosis: GI bleed Interval history: Laying quietly.States feels week. S/P EGD Objective - Vital Signs Vital signs: Vital Signs Temp Pulse Resp BP Pulse Ox 10/19/17 08:08 98.7 F 85 14 150/63 89 10/19/17 05:06 98.7 F 84 16 121/51 94 10/18/17 22:48 98.4 F 90 17 148/73 93 10/18/17 16:22 97.8 F 78 14 153/64 93 10/18/17 14:30 97.2 F L 18 130/42 10/18/17 13:50 124/47 10/18/17 13:35 147/47 10/18/17 13:20 139/72 10/18/17 13:05 138/49 10/18/17 12:50 133/49 10/18/17 12:35 128/69 10/18/17 12:20 134/41 10/18/17 12:05 115/43 10/18/17 11:50 124/74 10/18/17 11:35 130/61 10/18/17 11:20 144/66 10/18/17 11:05 137/60 10/18/17 10:50 97.7 F 18 143/62 Intake and Output 10/18/17 10/19/17 10/19/17 23:59 07:59 15:59 Intake Total 210 / 210 110 / 110 Output Total 0 / 0 Balance 210 / 210 110 / 110 Intake: IV Fluids 200 / 200 100 / 100 Protonix 40 MG In 0.9 % Sodium 200 / 200 100 / 100 Chloride (Mini-Bag +) 100 ML @ 20 mls/hr IVC .Q5H [facility] Rx#: [id number] Oral 0 / 0 Other 10 / 10 10 10 Output: Urine 0 / 0 Other: Stool Size Small Stool Consistency liquid Stool Color Brown Blood Glucose* 186 267 - General Appearance General appearance: Present: well-developed, well-nourished, appears started age EENT: Present: mucous membranes moist Neck: Present: no JVD Respiratory: Present: clear Cardiology: Present: no edema Dialysis Vascular Access: Arteriovenous Fistula Gastrointestinal: Present: normoactive bowel sounds, no tenderness Integumentary: Present: warm and dry Neurologic: Present: alert and oriented x3 - Lab 10/19/17 05:06 10/19/17 05:06 Most recent lab results Calcium 9.1 mg/dL (8.6-10.3) 10/19/17 05:06 - VTE Documentation of Mechanical Device: Intermittent pneumatic compression device Consult Discharge Plan - Plan Referrals: [facility] [Primary Care Provider] - 10/24/17 12:45 pm (Please follow up as schedule...)
[2017-10-19 12:10] VITALS: BP 153/70
--- NOTE | 2017-10-19 13:02 | Discharge Summary ---
Orders not resulted at time of discharge: Pending orders 10/18/17 09:30 Surgical Pathology [PTH] Routine Date of Encounter: 10/19/17 Time of Encounter: 12:50 - Discharge Diagnosis (1) Melena Priority: Primary Status: Acute Assessment and Plan: 72 year old male who presents with melena and anemia suspicious for upper GI bleed. He is on dual antiplatelet therapy s/p PCI in 01/2017. He was noted to be anemic with a hemoglobin of 6.2 in dialysis and admitted to dark tarry stools. He got transfused 2 units of PRBC and surgery was consulted. He was started on a protonix drip and had an EGD done showing small gastric mass which was taken out and sent to pathology as well as gastritis with bleeding that was stopped with two hemoclips. He was not able to get colonoscopy done due to incomplete prep. He was shceduled for a barium enema but could not get it done due to incomplete bowel prep. Surgery recommended outpatient colonscopy. he was discharged on protonix BID. he was also seen by cardiology for his elevated troponins, who determined he could continue dual antiplatelet therapy and no further cardiac intervention (2) CAD (coronary artery disease) Priority: Primary Status: Chronic Qualifiers: Coronary Disease-Associated Artery/Lesion type: [place] artery [place] vs. transplanted heart: [place] heart Associated angina: without angina Qualified Code(s): I25.10 - Atherosclerotic heart disease of [place] coronary artery without angina pectoris (3) ESRD (end stage renal disease) Priority: Secondary Status: Chronic (4) Type 2 diabetes mellitus with diabetic chronic kidney disease Priority: Secondary Status: Acute Qualifiers: Diabetes mellitus assisted insulin use: with assisted use Chronic kidney disease stage: on chronic dialysis Qualified Code(s): E11.22 - Type 2 diabetes mellitus with diabetic chronic kidney disease; N18.6 - End stage renal disease; Z79.4 - terminal block assembler (current) use of insulin; Z99.2 - Dependence on renal dialysis (5) Anemia Priority: Secondary Status: Acute Qualifiers: Anemia type: other cause Other causes of anemia: other cause, not classified Qualified Code(s): D64.89 - Other specified anemias (6) Neck pain Priority: Secondary Status: Acute Hospital course: Mr. Gallo is a 72 year old male - Time Spent with Patient Total time spent providing and/or coordinating discharge services: - Discharge Medications Prescriptions: Pantoprazole Sodium [Protonix] 40 mg PO BID 30 Days #60 tablet. Sucralfate [Carafate] 1 gm PO QIDAC #90 tablet Tizanidine HCl 4 mg PO BID 30 Days #60 tablet Tramadol HCl [Ultram] 50 mg PO QID PRN 7 Days #20 tab PRN Reason: neck pain Home Medications: Aspirin [Lo-Dose Aspirin EC] 81 mg PO DAILY 01/29/17 [History] Cinacalcet HCl [Sensipar] 60 mg PO DAILY 01/29/17 [History] Insulin Glargine,Hum.rec.anlog [Lantus Solostar] 16 - 18 unit SQ HS 01/29/17 [ History] Renal Vitamin [Renal Caps Softgel] 1 mg PO DAILY 01/29/17 [History] Sevelamer [Renvela] 2,400 mg PO TIDWM 01/29/17 [History] amLODIPine [Norvasc] 5 mg PO BID 01/29/17 [History] hydrALAZINE [HydrALAZINE] 25 mg PO QID 01/29/17 [History] Glucagon,Human Recombinant [Glucagon Emergency Kit] 1 mg IJ AD PRN 01/30/17 [ History] Atorvastatin [Lipitor] 40 mg PO HS #30 tablet 02/01/17 [Rx] Clopidogrel [Plavix] 75 mg PO DAILY #30 tablet 02/01/17 [Rx] Lisinopril [Zestril] 10 mg PO DAILY #30 tablet 02/02/17 [Rx] Carvedilol 12.5 mg PO BID 05/22/17 [History] Insulin ASPART [Novolog Flexpen] 2 - 4 unit SQ TIDWM 05/22/17 [History] Lactobacillus Combination No.8 [Adult Probiotic] 1 cap PO DAILY 05/22/17 [ History] Levothyroxine [Synthroid] 25 mcg PO 0630 #30 tablet 05/24/17 [Rx] Losartan [Cozaar] 50 mg PO BID 07/06/17 [History] Pantoprazole Sodium [Protonix] 40 mg PO BID 30 Days #60 tablet. 10/19/17 [Rx] Sucralfate [Carafate] 1 gm PO QIDAC #90 tablet 10/19/17 [Rx] Tizanidine HCl 4 mg PO BID 30 Days #60 tablet 10/19/17 [Rx] Tramadol HCl [Ultram] 50 mg PO QID PRN 7 Days #20 tab 10/19/17 [Rx] Allergies/Adverse Reactions: 3 Allergy/AdvReac Type Severity Reaction Status Date / Time No Known Allergies Allergy Verified 10/16/17 16:04 Date of admission: 10/16/17 16:57 [facility] care physician: [facility] Consults: 10/17/17 09:31 Consult to Cardiology [CONS] Routine Comment: Consulting Provider: Cardiology Ambreen Reason for Consult: elevated troponins Call Completed: Yes 10/18/17 09:30 Consult to Dialysis [CONS] ONCE - Constitutional Vitals: Temp Pulse Resp BP Pulse Ox 97.9 F 76 12 153/70 91 10/19/17 12:04 10/19/17 12:04 10/19/17 12:04 10/19/17 12:04 10/19/17 12:04 - Head Head exam: Present: atraumatic, normocephalic - Eye Eye exam: Present: PERRL, conjuntiva pink, sclera anicteric Pupils: Present: PERRL - Neck Neck exam general surgery: Present: supple, trachea midline. Absent: lymphadenopathy - Respiratory Respiratory exam: Present: CTAB. Absent: accessory muscle use, rales, rhonchi, wheezes - Cardiovascular Cardiovascular exam: Present: RRR, +S1, +S2. Absent: diastolic murmur, gallop, rubs, systolic murmur - GI/Abdominal GI/Abdominal exam: Present: normal bowel sounds, soft, no peritoneal signs. Absent: distended, tenderness - Extremities Exam Extremities exam: Present: warm, radial pulses palpable and symmetrical. Absent : calf tenderness, cyanotic, pedal edema - Neurological Exam Neurological exam: Present: CN II-XII intact, oriented X3, no focal deficits. Absent: pronater drift, facial droop, speech deficit - Skin Skin exam: Present: dry, intact - Patient Status Disposition: Home, Self-Care Condition: Fair - Discharge Instructions Instructions: Sucralfate (By mouth), Pantoprazole (By mouth), Anemia (GEN) Follow Up With: [facility] [Primary Care Provider[facility] - 10/24/17 12:45 pm (Please follow up as schedule...) - VTE Documentation of Mechanical Device: Intermittent pneumatic compression device
== END 2017-10-19 14:06 | disposition home or self-care (01) | DRG 377 ==
LOC: EMEROO 13:55 → 2ANU 13:55
PROVIDERS: ADMIT Internal Medicine Hematology & Oncology; ATTEND Internal Medicine Hematology & Oncology
PROC: ENDOEBX (2017-10-18 08:45)